=== PATIENT | male | born 1940 | race Caucasian/White ===

== ENCOUNTER 2016-09-07 21:49 | Emergency (ER) | payer MEDICARE ==
[2016-01-20 13:09] VITALS: BMI 25.8
[~2016-09-07 21:49] MED LIST: BAYER CHEWABLE81 MG PO; BRILINTA90 MG PO; COLACE100 MG PO; ISOSORBIDE MONO30 M1 PO; MIRALAX17 GM PO; NORCO 7.5/325 T1 TA1 PO
[2016-09-07 22:36] LABS: ALBUMIN 3.5 g/dL (3.4-5.0); ALKALINE PHOSPHATASE 61 U/L (46-116); ALT (SGPT) 46 U/L (10-68); BILIRUBIN - TOTAL 0.37 mg/dL (0.2-1.3); CALC OSMOLALITY 287 mosm/kg (275-300); CALCIUM 8.7 mg/dL (8.5-10.1); CARBON DIOXIDE 27.6 mmol/L (21.0-32.0); CHLORIDE - SERUM 106 mmol/L (98-107); GLUCOSE 107 mg/dL (74-106); POTASSIUM - SERUM 3.7 mmol/L (3.5-5.1); PROTEIN - SERUM 6.9 g/dL (6.4-8.2); SODIUM 144 mmol/L (136-145); UREA NITROGEN 15 mg/dL (7-18); eGFR NON AFRICAN AMERICAN 77 mL/min (90-120)
[2016-09-07 22:37] LABS: CREATINE KINASE 77 UL (21-232); TROPONIN-I 0.031 ng/mL (0.000-0.060)
[2016-09-07 22:49] LABS: BASOPHILS 0.8 % (0-2); EOSINOPHILS 3.3 % (0-7); HEMATOCRIT 44.4 % (42.0-54.0); HEMOGLOBIN 15.1 g/dL (13.5-17.5); IMMATURE GRANULOCYTES 0.1 % (0-5); LYMPHOCYTES 51.2 % (15-50); MCH 31.3 pg (26.0-34.0); MCV 91.9 fL (80.0-100.0); MEAN PLATELET VOLUME 10.5 fL (7.4-10.4); MONOCYTES 7.2 % (2-11); NEUTROPHILS 37.4 % (40-80); PLATELET COUNT 212 10x3/uL (130-400); RBC 4.83 10x6/uL (4.20-6.10); RDW 14.6 % (11.5-14.5); WBC 7.6 10x3/uL (4.8-10.8)
== END 2016-09-08 00:40 | disposition home or self-care (01) ==
LOC: D.ER 21:49
PROVIDERS: Family Medicine
DX: I49.3 Ventricular premature depolarization (principal); R53.83 Other fatigue; R00.1 Bradycardia, unspecified

== ENCOUNTER → 2017-05-03 02:46 | Outpatient (CLI) | payer MEDICARE ==
[2016-01-20 13:09] VITALS: BMI 25.8
--- NOTE | ~2017-05-03 | HP ---
PATIENT: JERONIMO CLARKE MEDICAL RECORD: [id number] ACCOUNT: [id number] LOCATION:[facility] : 40 ADMISSION DATE: 05/03/17 HISTORY AND PHYSICAL EXAMINATION DIAGNOSES: 1. Non-Q-wave myocardial infarction. 2. Coronary artery disease. 3. Previous PTCA and stent. 4. Previous bypass surgery. HISTORY OF PRESENT ILLNESS: This is a gentleman with a past history of coronary bypass graft surgery in 1998, PTCA and stent in January of 2016, who presents with acute onset of chest pain, troponin is elevated, he continues to have chest pain. PHYSICAL EXAMINATION: GENERAL APPEARANCE: Well-nourished, well-developed, appears stated age. Level of distress, comfortable. PSYCHIATRIC: Mental status, alert, normal affect. Orientation, oriented to time, place and person. EYES: Lids and conjunctiva, noninjected. No discharge, no pallor. ENT: Lips, teeth, gums, normal dentition. Oropharynx, no cyanosis, no pallor. NECK: Carotid arteries, bilateral normal upstroke, no bruits, no thrills. JUGULAR VEINS: No jugular venous pressure or distention. CERVICAL LYMPH NODES: Nontender, nonenlarged. THYROID: Not enlarged. Nontender. No nodules. LUNGS: Respiratory effort, unlabored. CHEST: Normal curvature. No thoracic deformity. No chest wall tenderness. Percussion, resonant. Auscultation, clear. No wheezes, no rales, no rhonchi. CARDIOVASCULAR: Precordial exam, nondisplaced. No heaves or pericardial thrills. Rate and rhythm, regular. Heart sounds, normal S1, normal S2. No S3, no gallop, no rub. Systolic murmur, not heard. Diastolic murmur, not heard. EXTREMITIES: No cyanosis, no edema. Peripheral pulses, full and equal in all extremities, except as noted. No bruits appreciated. ABDOMEN: Soft, nondistended. Normal aorta. No bruit. Nontender. No masses. Liver, nontender, no hepatomegaly. Spleen, nontender, no splenomegaly. MUSCULOSKELETAL: No joint tenderness. No joint swelling. No erythema. NEUROLOGICAL: Normal gait, normal strength, normal tone. SKIN: Warm and dry. REVIEW OF SYSTEMS: The patient reports easy bruising but reports no swollen glands. The patient reports no fever, no night sweats, no significant weight gain, no significant weight loss. No significant exercise tolerance. The patient reports no dry eyes, no irritation, no vision change. Patient reports no difficulty hearing and no ear pain. Patient reports no frequent nose bleeds or nose and sinus problems. Patient reports on arm pain on exertion. No shortness of breath while lying down. No history of heart murmur. Patient reports no cough, no wheezing or coughing up blood. Patient reports no abdominal pain, no vomiting. Normal appetite. No diarrhea and not vomiting blood. No nausea and no constipation. Patient reports no incontinence. No difficulty urinating. No hematuria. No increased frequency. Patient reports no muscle aches. No weakness, no arthralgias, no back pain. No swelling of the extremities. Patient reports no abnormal mole, no jaundice, no rashes. Reports no loss of consciousness. No weakness and no numbness. No seizures, dizziness, HISTORY AND PHYSICAL [id number] KRAWCZYNSKI,JERONIMO E or headaches. The patient reports no depression, no sleep disturbance, feeling safe in a relationship and no alcohol abuse. Patient reports on fatigue. Reports no runny nose or sinus pressure. No itching, no hives, and no frequent sneezing. OVERALL IMPRESSION: Chest pain with elevated troponin compatible with non-Q-wave myocardial infarction. His heart rate is in the 50s, hence we will not start a beta-joselyn. He is already on Brilinta and aspirin, we will continue these. Proceed with coronary angiography. Further care depends on the findings of the angiography. TRANSINT:[id number] Voice Confirmation ID: [id number] DOCUMENT ID: [id number] JESSY HARDWICK MD at 1056 CC: [id number] DICTATION DATE: 05/03/17 0754 SOLUTION MAKER: 05/03/17 0912 DEP CLI 05/03/17 [place] [id number] [place] [id number]
--- NOTE | ~2017-05-03 | HEMODYNAMI ---
PATIENT:JERONIMO CLARKE MEDICAL RECORD: [id number] : 40 LOCATION:JOAO Neumann7[facility]# [id number] ADMISSION DATE: 05/03/17 Generatedon:05/03/20179:37 Patient name: JERONIMO CLARKE Patient #: [id number] SSN : : 1940 Date of study: 05/03/2017 Page: Of Hemodynamic Procedure Report Patient Data Patient Demographics Procedure consent was obtained First Name: JERONIMO Gender: Male Last Name: TRICIA : 1940 [facility] Initial: E Age: 76 year(s) Patient #: [id number] Race: Additional ID: [id number] Contact details Address: [address] [place] [address] State: [place] City: [facility] Zip code: [address] Past Medical History Allergies Allergen Reaction Date Comments Reported Penicillins 12/17/2015 Statins 12/17/2015 Other allergy 01/20/2016 CIPROFLOXACIN, COREG, FOSAMAX, LISINOPRIL, MEXITIL, PLAVIX, QUINIDINE, RYTHMOL Admission Admission Data Admission Date: 05/03/2017 Admission Time: 6:24 Room #: D.E07 Lab Results Lab Result Date: 05/03/2017 Lab Result Time: 0:00 Biochemistry Name Units Result Min Max BUN mg/dl 13 --(--*-)-- 7 18 Creatinine mg/dl 1.1 --(--*-)-- 0.6 1.3 Troponin l ng/ml 0.8 --(----)-* 0 0.06 CBC Name Units Result Min Max Hemoglobin g/dl 14.5 --(*---)-- 13.5 17.5 Procedure Procedure Types Cath Procedure Diagnostic Procedure [facility] w/Coronaries PCI Procedure AMI/SVG/PRESSROOM SUPERVISOR PTCA or Stent SVG-BMS/MAXINE Initial Procedure Description Procedure Date Procedure Date: 05/03/2017 Procedure Start Time: 9:15 Procedure End Time: 9:36 Procedure Staff Name Function Mark Maradiaga RN Nurse Philippe Olson RT Monitor Gilda Stinson RT Scrub Ric Bryant MD Performing Physician Procedure Data Cath Procedure Fluoroscopy Diagnostic fluoroscopy Total fluoroscopy Time: 4.4 time: 4.4 min min Diagnostic fluoroscopy Total fluoroscopy dose: dose: 254.02 mGy 254.02 mGy Contrast Material Contrast Material Type Amount (ml) Isovue 300 107 Entry Location Entry Primary Successful Side Size Upsize Upsize Entry Closure Succes sful Closure Location (Fr) 1 (Fr) 2 (Fr) Remarks Device Remarks Femoral Right 5 Fr 6 Fr Exoseal artery Short Estimated blood loss: 10 ml Diagnostic catheters Device Type Used For End Catheter Placement MULTIPACK Pigtail 5 Fr Procedure catheter MULTIPACK JL 4.0 5Fr Procedure catheter DIAGNOSTIC AR 1 MOD 5Fr Procedure catheter ([id number]) Procedure Medications Medication Administration Route Dosage Oxygen NC 2 l/min Lidocaine 2% added to field 20 Heparin Flush Bag added to field 2 bags (1000units/500ml NS) 0.9% NaCl I.V. 100 ml/hr Versed I.V. 1 mg Fentanyl I.V. 50 mcg Versed I.V. 1 mg Fentanyl I.V. 50 mcg Fentanyl I.V. 50 mcg Heparin Bolus I.V. 5000 units Cardene I.C. 300 mcg Hemodynamics Rest HGB: 14.5 (g/dl) Heart Rate: 69 (bpm) Pressure Samples Time Site Value (mmHg) Purpose Heart Use Rate(bpm) 9:15 LV 144/-7,18 Snapshot 70 Snapshots Pre Cath Intra NCS Post Cath Vital Signs Time Heart Resp SPO2 etCO2 NIBP (mmHg) Rhythm Pain Sedation Rate (ipm) (%) (mmHg) Status Level (bpm) 8:57:10 70 17 97 27 168/102(156) NSR 0 (11) 10(A) , No pain 9:01:32 71 19 98 27.7 165/90(142) NSR 0 (11) 10(A) , No pain 9:05:46 67 13 98 27.7 149/88(134) NSR 0 (11) 10(A) , No pain 9:10:02 65 16 98 0 144/85(117) NSR 0 (11) 9(A) , No pain 9:14:18 65 15 95 0 142/84(121) NSR 0 (11) 9(A) , No pain 9:18:34 66 19 97 0 144/79(119) NSR 0 (11) 9(A) , No pain 9:22:48 71 17 96 33 142/82(118) NSR 0 (11) 9(A) , No pain 9:27:02 75 16 96 0.7 128/74(106) NSR 0 (11) 10(A) , No pain 9:31:14 77 9 97 38.9 147/84(116) NSR 0 (11) 10(A) , No pain 9:35:42 97 33.7 No Cuff NSR 0 (11) 10(A) , No pain Medications Time Medication Route Dose Verified Delivered Reason Notes Effectiveness by by 9:00:09 Oxygen NC 2 Ric Flores used for l/min Manny Maradiaga RN procedure 9:00:18 Lidocaine 2% added 20ml Ric Larios for local to vial Manny Bryant MD anesthetic field 9:01:03 Heparin Flush added 2 Ric Larios used for Bag to bags Manny Bryant MD procedure (1000units/500ml field NS) 9:01:12 0.9% NaCl I.V. 100 Ric Flores Per physician ml/hr Manny Maradiaga RN 9:08:20 Versed I.V. 1 mg Ric Flores for sedation Manny Maradiaga RN 9:08:26 Fentanyl I.V. 50 Ric Flores for sedation mcg Manny Maradiaga RN 9:12:53 Versed I.V. 1 mg Ric Flores for sedation Manny Maradiaga RN 9:12:58 Fentanyl I.V. 50 Ric [place] for sedation mcg Manny Maradiaga RN 9:17:08 Fentanyl I.V. 50 Ric Flores for sedation mcg Manny Maradiaga RN 9:21:16 Heparin Bolus I.V. 5000 Ric Flores for verifie d units Manny Maradiaga RN anticoagulation with dr bryant 9:24:45 Cardene I.C. 300 Ric Larios for mcg Manny Bryant MD vasodilation Procedure Log Time Note 8:36:06 Time tracking: Regular hours 8:36:07 Mark Maradiaga RN sent for patient. Start room use. 8:36:11 Plan of Care:Hemodynamics will remain stable., Cardiac rhythm will remain stable., Comfort level will be maintained., Respiratory function will remain adequate., Patient/ family verbilizes understanding of procedure., Procedure tolerated without complication., Recovers from procedure without complications.. 8:36:13 Signed procedure consent form obtained from patient. 8:40:38 Lab Result : BUN 13 mg/dl 8:40:38 Lab Result : Creatinine 1.1 mg/dl 8:40:38 Lab Result : Troponin l 0.8 ng/ml 8:40:38 Lab Result : Hemoglobin 14.5 g/dl 8:40:53 H&P Date Dictated: 05/03/2017 ER History on chart.. 8:41:02 Signed procedure consent form obtained from patient. 8:49:07 Patient received from ED to CCL 3 Alert and oriented. Tansferred to table in Supine position. 8:49:08 Warm blankets applied, and elfego hugger turned on for patient comfort. 8:49:09 Correct patient and procedure confirmed by team. 8:49:10 ECG and BP/O2 sat monitors applied to patient. 8:55:59 Vital chart was started 8:56:00 Baseline sample Acquired. 8:56:38 Baseline sample Acquired. 8:56:44 Rhythm: sinus rhythm 8:56:46 Full Disclosure recording started 8:56:50 Pre-procedure instructions explained to patient. 8:56:51 Pre-op teaching completed and patient verbalized understanding. 8:56:59 Family in waiting room. 8:57:12 Patient NPO since Breakfast. 8:57:37 SEE CHART FOR LIST OF ALLERGIES 8:57:42 Is the patient allergic to Iodine/contrast media? No. 8:57:47 Is patient on blood thinner?Yes 8:58:03 ACC The patient was administered the following blood thiners within the last 24 hours: ACCEffient 8:58:06 Patient diabetic? No. 8:58:10 ----Pre-sedation anethsthesia assessment.---- 8:58:13 Previous problem with sedation/anesthesia? No ? 8:58:19 Snore? No 8:58:22 Sleep apnea? No 8:58:24 Deviated septum? No 8:58:30 Opens mouth fully? Yes 8:58:32 Sticks out tongue? Yes 8:58:42 Airway obstruction? No ? 8:58:47 Dentures? No ? 8:59:02 Pre procedure: right posterior tibial pulse 2+ Normal; easily identifiable; not easily obliterated 8:59:19 Patient pain scale 0/10 ?. 8:59:41 IV patent on arrival in left hand with 0.9% NaCl at KVO. 9:00:07 PATIENTS HEPARIN DRIP WAS STOPPED AT 0845 9:00:09 Oxygen 2 l/min NC was administered by Mark Maradiaga RN; used for procedure; 9:00:13 Lab results completed and on chart. 9:00:18 Lidocaine 2% 20ml vial added to field was administered by Ric Bryant MD; for local anesthetic; 9:00:22 Right groin area was prepped with chlora-prep and draped in sterile fashion 9:01:03 Heparin Flush Bag (1000units/500ml NS) 2 bags added to field was administered by Ric Bryant MD; used for procedure; 9:01:12 0.9% NaCl 100 ml/hr I.V. was administered by Mark Maradiaga RN; Per physician; 9:01:18 PATIENT HAS HAD CABG 1994 X 5 9:01:21 Alarms reviewed by R. N. 9:01:22 Sharps counted by scrub and verified by R.N. 9:05:02 Zero performed for pressure channel P1 9:07:04 Physician arrived 9:07:04 --------ALL STOP TIME OUT------ 9:07:05 Final Timeout: patient, procedure, and site verified with staff and physician. All members of the team are in agreement. 9:07:07 Right groin site verified by team. 9:07:10 Physical assessment completed. ASA score P 2 - A patient with mild systemic disease as per Philippe Olson RT(R) (CV). 9:07:28 Sedation plan: IV Moderate Sedation Medication:Versed, Fentanyl 9:08:20 Versed 1 mg I.V. was administered by Mark Maradiaga RN; for sedation; 9:08:26 Fentanyl 50 mcg I.V. was administered by Mark Maradiaga RN; for sedation; 9:09:39 Use device set Femoral Dx 9:09:40 ACIST Syringe (53683) opened to sterile field. 9:09:43 Bag Decanter (2001S) opened to sterile field. 9:09:45 Medline Cath Pack ([id number]) opened to sterile field. 9:09:46 SHEATH 5FR [place] (LLB356) opened to sterile field. 9:09:47 DIAGNOSTIC WIRE .035 260cm J wire (485832) opened to sterile field. 9:09:48 ACIST Hand Control (87279) opened to sterile field. 9:09:49 ACIST Manifold (27980) opened to sterile field. 9:09:52 DIAGNOSTIC Multipack 5Fr catheter set (GR7684) opened to sterile field. 9:12:53 Versed 1 mg I.V. was administered by Mark Maradiaga RN; for sedation; 9:12:58 Fentanyl 50 mcg I.V. was administered by Mark Maradiaga RN; for sedation; 9:14:53 Procedure started. 9:15:03 Local anesthetic to right femoral artery with Lidocaine 2% by Ric Bryant MD.INITIAL ACCESS ONLY 9:15:31 A 5 Fr sheath was inserted into the Right Femoral artery 9:15:49 A MULTIPACK Pigtail 5 Fr catheter was advanced over the wire and used for Procedure. 9:15:57 LV hemodynamics recorded. 9:16:02 EF : 50 % 9:16:05 LV gram done using BLANKENSHIP 9:16:14 Catheter removed. 9:16:38 A MULTIPACK JL 4.0 5Fr catheter was advanced over the wire and used for Procedure. 9:17:04 LCA angiography performed. 9:17:07 Catheter removed. 9:17:08 Fentanyl 50 mcg I.V. was administered by Mark Maradiaga RN; for sedation; 9:17:22 A DIAGNOSTIC AR 1 MOD 5Fr catheter ([id number]) was advanced over the wire and used for Procedure. 9:18:24 SVG to RCA angiography performed. 9:18:56 VAZQUEZ to OM angiography performed. 9:20:03 VAZQUEZ to LAD angiography performed. 9:20:14 Catheter removed. 9:20:15 Proceeding to intervention. 9:21:05 SHEATH 6FR [place] (FHU098) opened to sterile field. 9:21:06 GUIDE 6FR AR 2.0 catheter ([id number]) opened to sterile field. 9:21:16 Heparin Bolus 5000 units I.V. was administered by Mark Maradiaga RN; for anticoagulation; verified with dr bryant 9:21:19 CHOICE PT Extra Support 182cm wire ([id number]) opened to sterile field. 9:21:21 INFLATOR Merit BasixCompak (AF0971) opened to sterile field. 9:22:03 Sheath upsized to a 6 Fr Short. 9:22:17 6 Fr AR 2 guide catheter was inserted over the wire 9:24:45 Cardene 300 mcg I.C. was administered by Ric Bryant MD; for vasodilation; 9:25:09 CHOICE wire advanced. 9:25:14 Wire advanced across lesion. 9:26:29 Procedure type changed to Cath procedure, Diagnostic procedure, LHC, LHC w/Coronaries, PCI procedure, AMI/SVG/PRESSROOM SUPERVISOR PTCA or Stent, SVG-BMS/MAXINE Initial 9:27:39 Inflation number: 1 A NC EUPHORA 3.0 x 15 balloon ([id number]) was prepped and advanced across the Aorta Right -> Dist RCA, then inflated to 13 KALE for 0:10 (min:sec). 9:27:55 Balloon removed over the wire. 9:28:27 Inflation Number: 2 A MESSI RX 3.5 x 26 stent ([id number]) was prepped and advanced across the Aorta Right -> Dist RCA. The stent was deployed at 13 KALE for 0:10 (min:sec). 9:30:59 Stent catheter was removed intact over wire. 9:31:00 Wire removed. 9:31:00 Guide catheter removed. 9:31:42 EXOSEAL 6Fr (EX600) opened to sterile field. 9:32:31 Procedure ended.(Physican Out) 9:33:14 Fluoroscopy time 04.40 minutes. 9:33:25 Flurop Dose total: 254.02 9:33:25 Fluoroscopy dose: 254.02 mGy 9:33:35 Contrast amount:Isovue 300 107ml. 9:33:58 Sharps counted by scrub and verified by R.N. 9:34:36 Sheath removed intact; hemostasis achieved with Exoseal to the Right Femoral artery. 9:34:47 Insertion/operative site no bleeding no hematoma. 9:34:50 Post-op/insertion site Right Femoral artery dressed using a 4 x 4 and Tegaderm. 9:34:55 Post right femoral artery:stable 9:35:14 Post Procedure Pulses reassessed and unchanged 9:35:23 Post procedure: right posterior tibial pulse 2+ Normal; easily identifiable; not easily obliterated. 9:35:36 Post-procedure physical assessment completed. ASA score P 2 - A patient with mild systemic disease as per Philippe Olson RT(R) (CV). 9:35:44 Post procedure rhythm: sinus rhythm 9:35:47 Estimated blood loss: 10 ml 9:35:50 Post procedure instruction explained to patient.Patient verbalizes understanding. 9:35:52 Patient needs reinforcement of post procedure teaching. 9:36:32 Procedure and supply charges have been captured, reviewed, submitted and are correct. 9:36:34 Vital chart was stopped 9:36:34 See physician's report for complete and final results. 9:36:40 Report given to Pre/Post Procedure Room. 9:36:48 Patient transfered to Pre/Post Procedure Room with Stretcher. 9:36:53 Procedure ended. 9:36:53 Full Disclosure recording stopped 9:36:58 End room use (Document Last) Intervention Summary Intervention Notes Time ActionType Lesion and Equipment Used Action# Pressure Duration Attributes 9:27:39 Inflate Aorta Right NC EUPHORA 3.0 1 13 00:10 balloon -> Dist RCA x 15 balloon ([id number]) 9:28:27 Place stent Aorta Right MESSI RX 3.5 x 2 13 00:10 -> Dist RCA 26 stent ([id number]) Device Usage Item Name Manufacture Quantity Catalog Number Hospital Part Current M inimal Lot# / Charge Number Stock Stock Serial# Code ACIST Syringe Acist 1 63491 235927 508531 577833 2 0 (02650) Medical Systems Inc Bag Decanter Microtek 1 2001S 137390 79224 626566 5 () Medical Inc. Medline Cath Cardinal 1 [id number] 538895 81627 827539 5 [employer] ([id number]) SHEATH 5FR Terumo 1 EXT660 857902 501164 931342 4 0 [place] (DMG275) DIAGNOSTIC St Fabrice 1 612481 953994 464118 275176 3 0 WIRE .035 260cm J wire (081021) ACIST Hand Acist 1 47593 385631 313690 982754 5 Control Medical (75193) Systems Inc ACIST Manifold Acist 1 07940 592402 654316 648071 5 (91486) Medical Systems Inc DIAGNOSTIC Cardinal 1 QT2379 089223 36191 386869 3 0 Multipack 5Fr Health catheter set (ZF1772) MULTIPACK Cardinal 1 985657 5 Pigtail 5 Fr Health catheter MULTIPACK JL Cardinal 1 413643 5 4.0 5Fr Health catheter DIAGNOSTIC AR Cardinal 1 [id number] 090036 917755 523897 1 5 1 MOD 5Fr Health catheter ([id number]) SHEATH 6FR Terumo 1 ZQC213 386529 132460 957481 4 0 [place] (FFN591) GUIDE 6FR AR Medtronic 1 KU5QX84 499964 54427 254069 1 2.0 catheter (YN8IA44) CHOICE PT Buckhorn 1 [id number] 006622 770468 861288 5 Extra Support Scientific 182cm wire ([id number]) INFLATOR Merit Merit 1 XG2242 036276 553882 196642 1 5 [employer]oo Medical (NG5759) NC EUPHORA 3.0 Medtronic 1 [id number] 131641 871292 043774 1 x 15 balloon ([id number]) MESSI RX 3.5 x Medtronic 1 [id number] 156389 1332750 545225 5 [id number] 26 stent ([id number]) EXOSEAL 6Fr Cardinal 1 EX600 397561 964901 061836 1 0 (EX600) Health Signature Audit [place] Stage Time Signature Unsigned Intra-Procedure 05/03/2017 Philippe Olson 9:37:48 AM RT(R) (CV) Signatures Monitor : Philippe Olson RT Signature : Date : Time : [facility] [address] [address]
--- NOTE | ~2017-05-03 | OP ---
PATIENT NAME: JERONIMO CLARKE MEDICAL RECORD: [id number] :40 LOCATION:D.OPS ADMISSION DATE: SURGEON: JESSY HARDWICK MD DATE OF OPERATION: 05/03/2017 PROCEDURES: 1. PTCA stent vein graft to RCA. 2. Left heart catheterization. 3. Selective coronary angiography. 4. Vein graft angiography. 5. VAZQUEZ angiography. 6. Left ventriculogram. INDICATION: Angina and coronary artery disease. PROCEDURE IN DETAIL: After informed consent was obtained and after detailed explanation of risks, benefits as well as alternative therapies, the patient elected to proceed with angiogram and angioplasty. The right femoral area was prepped and draped in normal sterile fashion. The right femoral artery was cannulated via modified Seldinger technique with placement of 6-[place] sheath. All catheters exchanged through this sheath. FINDINGS: Left ventriculogram was performed in standard 30-degree BLANKENSHIP view, reveals preserved cardiac wall motion, ejection fraction 50%. SELECTIVE CORONARY ANGIOGRAPHY: 1. Left main is with no significant angiographic disease. 2. Left anterior descending is closed. 3. Left circumflex is closed. 4. VAZQUEZ to the LAD is patent. Distal LAD is widely patent. 5. Right coronary artery is closed in the mid vessel. 6. Vein graft to the right coronary artery is patent with a 99% stenosis proximally. 7. Vein graft to the circumflex is patent with 80+ percent stenosis proximally. PTCA STENT OF THE RCA VEIN GRAFT: The stent used is a 3.5 x 26 mm Coolin. Result was 0% residual stenosis. OVERALL IMPRESSION: Successful percutaneous transluminal coronary angioplasty stent of the vein graft to the right coronary artery going from 99% initial stenosis to 0% residual stenosis. PLAN: PTCA stent of the vein graft to the left circumflex in the near future. TRANSINT:[id number] Voice Confirmation ID: [id number] DOCUMENT ID: [id number] JESSY HARDWICK MD at 1056 CC: [id number] DICTATION DATE: 05/03/17 0940 AUTOMATIC TELLER MACHINE SERVICER: 05/03/17 1136 DEP CLI 05/03/17 [place] [address]
[~2017-05-03 02:46] MED LIST changes: +EFFIENT10 MG PO
[2017-05-03 03:41] LABS: BASOPHILS 0.6 % (0-2); EOSINOPHILS 5.8 % (0-7); HEMATOCRIT 42.2 % (42.0-54.0); HEMOGLOBIN 14.5 g/dL (13.5-17.5); IMMATURE GRANULOCYTES 0.2 % (0-5); LYMPHOCYTES 43.1 % (15-50); MCH 31.2 pg (26.0-34.0); MCHC 34.4 g/dL (31.0-37.0); MCV 90.8 fL (80.0-100.0); MEAN PLATELET VOLUME 10.2 fL (7.4-10.4); MONOCYTES 10.5 % (2-11); NEUTROPHILS 39.8 % (40-80); PLATELET COUNT 170 10x3/uL (130-400); RBC 4.65 10x6/uL (4.20-6.10); RDW 14.1 % (11.5-14.5)
[2017-05-03 03:53] LABS: ALBUMIN 3.4 g/dL (3.4-5.0); ALKALINE PHOSPHATASE 55 U/L (46-116); ALT (SGPT) 51 U/L (10-68); CALC OSMOLALITY 281 mosm/kg (275-300); CALCIUM 8.7 mg/dL (8.5-10.1); CARBON DIOXIDE 25.7 mmol/L (21.0-32.0); CHLORIDE - SERUM 106 mmol/L (98-107); CREATININE - SERUM 1.1 mg/dL (0.6-1.3); GLUCOSE 108 mg/dL (74-106); POTASSIUM - SERUM 3.7 mmol/L (3.5-5.1); PROTEIN - SERUM 6.9 g/dL (6.4-8.2); SODIUM 141 mmol/L (136-145); UREA NITROGEN 13 mg/dL (7-18); eGFR NON AFRICAN AMERICAN 69 mL/min (90-120)
[2017-05-03 04:03] LABS: APTT 26.8 SECONDS (22.8-39.4); INR 1.09 (0.85-1.17); PROTIME 13.7 SECONDS (11.6-15.0)
[2017-05-03 04:22] LABS: D-DIMER-QUANTITATIVE 0.79 ug/mLFEU (0.20-0.54)
[2017-05-03 04:31] LABS: CHOL - HDL RATIO 5.2 ratio (2.3-4.9); CHOLESTEROL, TOTAL 177 mg/dL (0-200); CREATINE KINASE 121 UL (21-232); HDL CHOLESTEROL 34 mg/dL (32-96); LDL CHOLESTEROL 119 mg/dL (0-100); LDL-HDL RATIO 3.5 ratio (1.5-3.5); PRO BNP 514 pg/mL (0-450); TRIGLYCERIDE 124 mg/dL (30-200)
[2017-05-03 04:34] LABS: TROPONIN-I 0.784 ng/mL (0.000-0.060)
[2017-05-03 06:15] LABS: TROPONIN-I 0.87 ng/mL (0.000-0.060)
== END | disposition home or self-care (01) ==
LOC: D.ER 02:46 → D.OPS 02:46 → D.EDHOLD 06:24 → D.OPS 06:24 → D.ER 06:24 → EDSTATUS 12:00 → D.EDHOLD 14:00
PROVIDERS: Family Medicine; Internal Medicine Interventional Cardiology
PROC: B2121ZZ Fluoroscopy of Single Coronary Artery Bypass Graft using Low Osmolar Contrast (ICD-10-PCS; 2017-05-03)
PROC: B2181ZZ Fluoroscopy of Left Internal Mammary Bypass Graft using Low Osmolar Contrast (ICD-10-PCS; 2017-05-03)
PROC: B2151ZZ Fluoroscopy of Left Heart using Low Osmolar Contrast (ICD-10-PCS; 2017-05-03)
PROC: 027034Z Dilation of Coronary Artery, One Artery with Drug-eluting Intraluminal Device, Percutaneous Approach (ICD-10-PCS; principal; 2017-05-03 12:00)
PROC: 4A023N7 Measurement of Cardiac Sampling and Pressure, Left Heart, Percutaneous Approach (ICD-10-PCS; 2017-05-03 12:00)
DX: I21.4 Non-ST elevation (NSTEMI) myocardial infarction (principal); I25.119 Atherosclerotic heart disease of native coronary artery with unspecified angina pectoris; Z95.5 Presence of coronary angioplasty implant and graft; Z95.1 Presence of aortocoronary bypass graft
CPT/HCPCS: 93459; C9604

== ENCOUNTER → 2017-05-12 08:37 | Outpatient (CLI) | payer MEDICARE ==
[~2017-05-12] VITALS: Ht 177.8 cm; Wt 81.8 kg
--- NOTE | ~2017-05-12 | HP ---
PATIENT: JERONIMO CLARKE MEDICAL RECORD: [id number] ACCOUNT: [id number] LOCATION:CHAS : 40 ADMISSION DATE: 05/12/17 HISTORY AND PHYSICAL EXAMINATION ADMITTING DIAGNOSES: 1. Angina. 2. Coronary artery disease. 3. Recent percutaneous transluminal coronary angioplasty stent vein graft to RCA with concomitant disease of the vein graft to the circumflex. 4. Hypertension. 5. Hyperlipidemia. HISTORY OF PRESENT ILLNESS: This is a gentleman who presents with anginal symptomatology, found to have 2-vessel disease of the vein graft to the RCA as well as a vein graft to the circumflex. He underwent successful PTCA stent of the vein graft to the RCA, now brought back for the vein graft to the left circumflex. REVIEW OF SYSTEMS: The patient reports easy bruising but reports no swollen glands. The patient reports no fever, no night sweats, no significant weight gain, no significant weight loss. No significant exercise tolerance. The patient reports no dry eyes, no irritation, no vision change. Patient reports no difficulty hearing and no ear pain. Patient reports no frequent nose bleeds or nose and sinus problems. Patient reports on arm pain on exertion. No shortness of breath while lying down. No history of heart murmur. Patient reports no cough, no wheezing or coughing up blood. Patient reports no abdominal pain, no vomiting. Normal appetite. No diarrhea and not vomiting blood. No nausea and no constipation. Patient reports no incontinence. No difficulty urinating. No hematuria. No increased frequency. Patient reports no muscle aches. No weakness, no arthralgias, no back pain. No swelling of the extremities. Patient reports no abnormal mole, no jaundice, no rashes. Reports no loss of consciousness. No weakness and no numbness. No seizures, dizziness, or headaches. The patient reports no depression, no sleep disturbance, feeling safe in a relationship and no alcohol abuse. Patient reports on fatigue. Reports no runny nose or sinus pressure. No itching, no hives, and no frequent sneezing. PHYSICAL EXAMINATION: GENERAL APPEARANCE: Well-nourished, well-developed, appears stated age. Level of distress, comfortable. PSYCHIATRIC: Mental status, alert, normal affect. Orientation, oriented to time, place and person. EYES: Lids and conjunctiva, noninjected. No discharge, no pallor. ENT: Lips, teeth, gums, normal dentition. Oropharynx, no cyanosis, no pallor. NECK: Carotid arteries, bilateral normal upstroke, no bruits, no thrills. JUGULAR VEINS: No jugular venous pressure or distention. CERVICAL LYMPH NODES: Nontender, nonenlarged. THYROID: Not enlarged. Nontender. No nodules. LUNGS: Respiratory effort, unlabored. CHEST: Normal curvature. No thoracic deformity. No chest wall tenderness. Percussion, resonant. Auscultation, clear. No wheezes, no rales, no rhonchi. CARDIOVASCULAR: Precordial exam, nondisplaced. No heaves or pericardial thrills. Rate and rhythm, regular. Heart sounds, normal S1, normal S2. No S3, no gallop, no rub. Systolic murmur, not heard. Diastolic murmur, not heard. HISTORY AND PHYSICAL [id number] JERONIMO CLARKE EXTREMITIES: No cyanosis, no edema. Peripheral pulses, full and equal in all extremities, except as noted. No bruits appreciated. ABDOMEN: Soft, nondistended. Normal aorta. No bruit. Nontender. No masses. Liver, nontender, no hepatomegaly. Spleen, nontender, no splenomegaly. MUSCULOSKELETAL: No joint tenderness. No joint swelling. No erythema. NEUROLOGICAL: Normal gait, normal strength, normal tone. SKIN: Warm and dry. OVERALL IMPRESSION: Anginal symptomatology with significant disease in the vein graft to circumflex. We will proceed with percutaneous transluminal coronary angioplasty stent of the vein graft to circumflex. TRANSINT:[id number] Voice Confirmation ID: [id number] DOCUMENT ID: [id number] JESSY HARDWICK MD at 1056 CC: [id number] DICTATION DATE: 05/12/17 0938 ORDERING MACHINE OPERATOR: 05/12/17 0959 [facility] CLI 05/12/17 [place] [id number] [place] [id number]
--- NOTE | ~2017-05-12 | HEMODYNAMI ---
PATIENT:JERONIMO CLARKE MEDICAL RECORD: [id number] : 40 LOCATION:DIsaelCAT ADMISSION DATE: 05/12/17 Generatedon:05/12/201711:24 Patient name: JERONIMO CLARKE Patient #: [id number] SSN : : 1940 Date of study: 05/12/2017 Page: Of Hemodynamic Procedure Report Patient Data Patient Demographics Procedure consent was obtained First Name: JERONIMO Gender: Male Last Name: TRICIA : 1940 Middle Initial: E Age: 76 year(s) Patient #: [id number] Race: Additional ID: [id number] Contact details Address: [address] [place] [address] State: [place] City: [facility] Zip code: [address] Past Medical History Allergies Allergen Reaction Date Comments Reported Penicillins 12/17/2015 Statins 12/17/2015 Other allergy 01/20/2016 CIPROFLOXACIN, COREG, FOSAMAX, LISINOPRIL, MEXITIL, PLAVIX, QUINIDINE, RYTHMOL Admission Admission Data Admission Date: 05/12/2017 Admission Time: 8:37 Lab Results Lab Result Date: 05/12/2017 Lab Result Time: 0:00 Biochemistry Name Units Result Min Max BUN mg/dl 16 --(---*)-- 7 18 Creatinine mg/dl 1.1 --(--*-)-- 0.6 1.3 CBC Name Units Result Min Max Hemoglobin g/dl 15.8 --(--*-)-- 13.5 17.5 Procedure Procedure Types Cath Procedure PCI Procedure Coronary Stent Coronary Stent Initial Procedure Description Procedure Date Procedure Date: 05/12/2017 Procedure Start Time: 11:13 Procedure End Time: 11:24 Procedure Staff Name Function Stanley Ford RT Monitor Ric Bryant MD Performing Physician Gilda Stinson RT Scrub Preston Rivera RN Nurse Procedure Data Cath Procedure Fluoroscopy Diagnostic fluoroscopy Total fluoroscopy Time: 1.2 time: 1.2 min min Diagnostic fluoroscopy Total fluoroscopy dose: 70 dose: 70 mGy mGy Contrast Material Contrast Material Type Amount (ml) Isovue 300 32 Entry Location Entry Primary Successful Side Size Upsize Upsize Entry Closure Succes sful Closure Location (Fr) 1 (Fr) 2 (Fr) Remarks Device Remarks Femoral Right 6 Fr Exoseal artery Short Estimated blood loss: 10 ml Procedure Complications No complications Procedure Medications Medication Administration Route Dosage Oxygen etCO2 Nasal cannula 2 l/min Heparin Flush Bag added to field 2 bags (1000units/500ml NS) 0.9% NaCl I.V. 100 ml/hr Fentanyl I.V. 50 mcg Versed I.V. 1 mg Fentanyl I.V. 50 mcg Versed I.V. 1 mg Heparin Bolus I.V. 4000 units Hemodynamics Rest HGB: 15.8 (g/dl) Heart Rate: 54 (bpm) Snapshots Pre Cath Intra NCS Post Cath Vital Signs Time Heart Resp SPO2 etCO2 NIBP (mmHg) Rhythm Pain Sedation Rate (ipm) (%) (mmHg) Status Level (bpm) 11:06:25 69 17 99 0 171/94(151) NSR 0 (11) 10(A) , No pain 11:10:52 64 16 100 32.1 164/89(138) NSR 0 (11) 10(A) , No pain 11:15:10 64 16 100 0 153/81(127) NSR 0 (11) 9(A) , No pain 11:19:26 73 16 99 0 141/81(122) NSR 0 (11) 9(A) , No pain 11:20:50 65 16 99 35.8 139/83(115) NSR 0 (11) 9(A) , No pain Medications Time Medication Route Dose Verified Delivered Reason Notes Effectiveness by by 11:09:11 Oxygen etCO2 2 Ric Johnston Per physician Nasal l/min Manny Rivera RN cannula 11:09:19 Heparin Flush added 2 iRc Johnston used for Bag to bags Manny Rivera dining car hop (1000units/500ml field NS) 11:09:30 0.9% NaCl I.V. 100 Ric Johnston Per physician ml/hr Manny Rivera RN 11:11:01 Fentanyl I.V. 50 Ric Johnston for sedation thomas Rivera RN 11:11:09 Versed I.V. 1 mg Ric Johnston for sedation Manny Rivera RN 11:13:18 Fentanyl I.V. 50 Ric Johnston for sedation mcg Manny Rivera RN 11:13:23 Versed I.V. 1 mg Ric Johnston for sedation Manny Rivera RN 11:14:01 Heparin Bolus I.V. 4000 Ric Johnston for units Manny Rivera RN anticoagulation Procedure Log Time Note 10:30:00 Gilda Stinson RT(R) sent for patient. Start room use. 10:45:48 Plan of Care:Hemodynamics will remain stable., Cardiac rhythm will remain stable., Comfort level will be maintained., Respiratory function will remain adequate., Patient/ family verbilizes understanding of procedure., Procedure tolerated without complication., Recovers from procedure without complications.. 10:45:49 Time tracking: Regular hours 10:45:51 Signed procedure consent form obtained from patient. 10:48:18 H&P Date Dictated: 05/12/2017 Within 30 days and on chart., H&P Addendum completed by physician on day of procedure. (MUST COMPLETE FOR ALL OUTPATIENTS). 10:48:46 Lab Result : BUN 16 mg/dl 10:48:46 Lab Result : Hemoglobin 15.8 g/dl 10:48:46 Lab Result : Creatinine 1.1 mg/dl 10:58:44 Patient received from Pre/Post Procedure Room to CCL 3 Alert and oriented. Tansferred to table in Supine position. 10:58:45 Warm blankets applied, and elfego hugger turned on for patient comfort. 10:58:46 Correct patient and procedure confirmed by team. 10:58:46 ECG and BP/O2 sat monitors applied to patient. 11:05:06 Vital chart was started 11:09:11 Oxygen 2 l/min etCO2 Nasal cannula was administered by Preston Rivera RN; Per physician; 11:09:19 Heparin Flush Bag (1000units/500ml NS) 2 bags added to field was administered by Preston Rivera RN; used for procedure; 11:09:20 Baseline sample Acquired. 11:09:25 Rhythm: sinus rhythm 11:09:26 Full Disclosure recording started 11::28 Pre-procedure instructions explained to patient. 11:09:28 Pre-op teaching completed and patient verbalized understanding. 11:09:30 0.9% NaCl 100 ml/hr I.V. was administered by Preston Rivera RN; Per physician; 11:09:30 Family in waiting room. 11:09:32 Patient NPO since Midnight. 11:09:34 Is the patient allergic to Iodine/contrast media? No. 11:09:42 Is patient on blood thinner?Yes 11:09:45 ACC The patient was administered the following blood thiners within the last 24 hours: ACCEffient 11:09:47 Patient diabetic? No. 11:09:49 Previous problem with sedation/anesthesia? No ? 11:09:50 Snore? Yes 11:09:51 Sleep apnea? No 11:09:52 Deviated septum? No 11:09:53 Opens mouth fully? Yes 11:09:54 Sticks out tongue? Yes 11:09:57 Airway obstruction? No ? 11:09:59 Dentures? No ? 11:10:02 Pre procedure: right dorsailis pedis pulse 1+ Palpable, but thready & weak; easily obliterated 11:10:05 Patient pain scale 0/10 ?. 11:10:18 IV patent on arrival in left forearm with 0.9% NaCl at [facility]. 11:10:20 Lab results completed and on chart. 11:10:24 Right groin area was prepped with chlora-prep and draped in sterile fashion 11:10:25 Alarms reviewed by R. N. 11:10:26 Sharps counted by scrub and verified by R.N. 11:10:27 --------ALL STOP TIME OUT------ 11:10:27 Final Timeout: patient, procedure, and site verified with staff and physician. All members of the team are in agreement. 11:10:29 Right groin site verified by team. 11:10:32 Physical assessment completed. ASA score P 2 - A patient with mild systemic disease as per Stanley Ford RT(R). 11:10:35 Sedation plan: IV Moderate Sedation Medication:Versed, Fentanyl 11:11:01 Fentanyl 50 mcg I.V. was administered by Preston Rivera RN; for sedation; 11:11:09 Versed 1 mg I.V. was administered by Preston Rivera RN; for sedation; 11:13:18 Fentanyl 50 mcg I.V. was administered by Preston Rivera RN; for sedation; 11:13:23 Procedure started. 11:13:23 Versed 1 mg I.V. was administered by Preston Rivera RN; for sedation; 11:13:26 Local anesthetic to right femoral artery with Lidocaine 2% by Ric Bryant MD.INITIAL ACCESS ONLY 11:13:38 Tegaderm 4 x 4 (1626W) opened to sterile field. 11:13:39 ACIST Manifold (98580) opened to sterile field. 11:13:39 ACIST Hand Control (57055) opened to sterile field. 11:13:41 ACIST Syringe (29227) opened to sterile field. 11:13:41 Medline Cath Pack ([id number]) opened to sterile field. 11:13:42 Bag Decanter (2002) opened to sterile field. 11:13:43 DIAGNOSTIC WIRE .035 260cm J wire (992499) opened to sterile field. 11:13:50 Use device set [facility] PCI 11:14:01 Heparin Bolus 4000 units I.V. was administered by Preston Rivera RN; for anticoagulation; 11:14:09 SHEATH Prelude 6Fr 0.035 (BFT-1J-13-035) opened to sterile field. 11:14:09 GUIDE 6FR AR 2.0 SH catheter ([id number]) opened to sterile field. 11:14:18 INFLATOR Merit BasixCompak (DE9562) opened to sterile field. 11:14:25 CHOICE PT Extra Support 182cm wire ([id number]) opened to sterile field. 11:14:39 A 6 Fr Short sheath was inserted into the Right Femoral artery 11:14:47 6 Fr AR 2 SH guide catheter was inserted over the wire 11:16:12 Choice PT XS wire advanced. 11:16:15 Wire advanced across lesion. 11:17:11 Place stent Inflation Number: 1 A MESSI RX 3.5 x 18 stent ([id number]) was prepped and advanced across the Aorta Left -> Dist CX. The stent was deployed at 21 KALE for 0:10 (min:sec). 11:17:23 EXOSEAL 6Fr (EX600) opened to sterile field. 11:17:29 Stent catheter was removed intact over wire. 11:17:30 Wire removed. 11:17:31 Guide catheter removed. 11:17:38 Sheath removed intact; hemostasis achieved with Exoseal to the Right Femoral artery. 11:17:43 Procedure ended.(Physican Out) 11:22:48 Fluoroscopy time 01.20 minutes. 11:22:52 Fluoroscopy dose: 70 mGy 11:22:52 Flurop Dose total: 70 11:22:56 Contrast amount:Isovue 300 32ml. 11:23:06 Sharps counted by scrub and verified by R.N. 11:23:08 Insertion/operative site no bleeding no hematoma. 11:23:12 Post-op/insertion site Right Femoral artery dressed using a 4 x 4 and Tegaderm. 11:23:13 Post Procedure Pulses reassessed and unchanged 11:23:17 Post-procedure physical assessment completed. ASA score P 2 - A patient with mild systemic disease as per Ric Bryant MD. 11:23:20 Post procedure rhythm: unchanged. 11:23:22 Estimated blood loss: 10 ml 11:23:25 Post procedure instruction explained to patient.Patient verbalizes understanding. 11:23:25 Patient needs reinforcement of post procedure teaching. 11:23:34 Procedure and supply charges have been captured, reviewed, submitted and are correct. 11:23:36 Procedure Complication : No complications 11:23:55 Vital chart was stopped 11:23:55 See physician's report for complete and final results. 11:23:57 Report given to Pre/Post Procedure Room. 11:23:59 Patient transfered to Pre/Post Procedure Room with Stretcher. 11:24:01 Procedure ended. 11:24:01 Full Disclosure recording stopped 11:24:04 End room use (Document Last) Intervention Summary Intervention Notes Time ActionType Lesion and Equipment Used Action# Pressure Duration Attributes 11:17:11 Place stent Aorta Left MESSI RX 3.5 x 1 21 00:10 -> Dist CX 18 stent ([id number]) Device Usage Item Name Manufacture Quantity Catalog Number Hospital Part Current Minimal Lot# / Charge Number Stock Stock Serial# Code Tegaderm 4 x 4 3M 1 1626W [id number] [id number] 5 (1626W) ACIST Manifold Acist 1 03764 170903 348165 641340 5 (78795) [employer] Inc ACIST Hand Acist 1 17181 186948 507095 112446 5 Control (32016) [employer] Inc ACIST Syringe Acist 1 43892 294593 658243 036367 20 (24865) [employer] Systems Inc Medline Cath Cardinal 1 [id number] 475141 72123 489552 5 [facility] ([id number]) Bag Decanter Microtek 1 2002S 079852 62577 455413 5 (2001S) Medical Inc. DIAGNOSTIC WIRE St Fabrice 1 745929 555664 854576 388477 30 .035 260cm J wire (507065) SHEATH Prelude Merit 1 WJL-7P-38-35 656332 5122911 985204 5 6Fr 0.035 Medical (TEG-4U-83-035) GUIDE 6FR AR Medtronic 1 [id number] 695274 82817 590064 1 2.0 SH catheter ([id number]) INFLATOR Merit Merit 1 BB9265 355611 294282 459817 15 [facility] (NX9660) CHOICE PT Extra [place] 1 [id number] 932238 193902 409495 5 Support 182cm Scientific wire ([id number]) MESSI RX 3.5 x Medtronic 1 [id number] 945153 6923755 214160 5 [id number] 18 stent ([id number]) EXOSEAL 6Fr Cardinal 1 EX600 659237 930732 726379 10 (EX600) Health Signature Audit Willard Stage Time Signature Unsigned Intra-Procedure 05/12/2017 Stanley Ford 11:24:22 AM RT(R) Signatures Monitor : Stanley Ford RT Signature : Date : Time : [facility] [address] [place] [address]
--- NOTE | ~2017-05-12 | OP ---
PATIENT NAME: JERONIMO CLARKE MEDICAL RECORD: [id number] :40 LOCATION:D.CAT ADMISSION DATE: SURGEON: JESSY HARDWICK MD DATE OF OPERATION: 05/12/2017 PROCEDURES: 1. PTCA, stent, vein graft to the left circumflex. 2. Selective coronary and vein graft angiography. INDICATION: Angina and coronary artery disease. PROCEDURE IN DETAIL: After informed consent was obtained and after a detailed explanation of the risks, benefits as well as alternative therapies, the patient was elected to proceed with angiogram and angioplasty. The right femoral area was prepped and draped in normal sterile fashion. Right femoral artery was cannulated via modified Seldinger technique with placement of 6-Russian sheath. All catheters were exchanged through this sheath. FINDINGS: The left circumflex vein graft has an 80% stenosis proximally. This was addressed with a 3.5 x 18 mm Wayne stent. Result was 0% residual stenosis. OVERALL IMPRESSION: Successful percutaneous transluminal coronary angioplasty, stent of the vein graft to the left circumflex going from 80% initial stenosis to 0% residual stenosis. TRANSINT:[id number] Voice Confirmation ID: [id number] DOCUMENT ID: [id number] JESSY HARDWICK MD at 1056 CC: [id number] DICTATION DATE: 05/12/17 1122 ORTHOPEDIC SPECIALIST: 05/12/17 1144 DEP CLI 05/12/17 [place] [id number] [place] [id number]
[2017-05-12 09:57] LABS: BASOPHILS 0.6 % (0-2); HEMATOCRIT 45.2 % (42.0-54.0); HEMOGLOBIN 15.8 g/dL (13.5-17.5); IMMATURE GRANULOCYTES 0.2 % (0-5); LYMPHOCYTES 43.9 % (15-50); MCH 32.2 pg (26.0-34.0); MCV 92.1 fL (80.0-100.0); MEAN PLATELET VOLUME 10.4 fL (7.4-10.4); MONOCYTES 7.8 % (2-11); NEUTROPHILS 44.5 % (40-80); RBC 4.91 10x6/uL (4.20-6.10); RDW 14.2 % (11.5-14.5); WBC 5.4 10x3/uL (4.8-10.8)
[2017-05-12 10:02] LABS: PLATELET COUNT 229 10x3/uL (130-400)
[2017-05-12 10:05] LABS: ANION GAP 11.2 mmol/L (8-16); CREATININE - SERUM 1.1 mg/dL (0.6-1.3); POTASSIUM - SERUM 4.2 mmol/L (3.5-5.1)
[2017-05-12 10:14] VITALS: BP 155/80; Ht 177.8 cm; Wt 81.8 kg
== END | disposition home or self-care (01) ==
LOC: D.CATH 08:37
PROVIDERS: Internal Medicine Interventional Cardiology
DX: I25.119 Atherosclerotic heart disease of native coronary artery with unspecified angina pectoris (principal); Z95.5 Presence of coronary angioplasty implant and graft; I10 Essential (primary) hypertension; E78.5 Hyperlipidemia, unspecified; Z01.812 Encounter for preprocedural laboratory examination

== ENCOUNTER 2018-01-12 13:41 | Observation (INO) | payer MEDICARE ==
[~2018-01-12] VITALS: Ht 177.8 cm; Wt 0.5 kg
--- NOTE | ~2018-01-12 | EC ---
PATIENT:JERONIMO CLARKE DATE OF SERVICE: 01/12/18 SEX: M MEDICAL RECORD: [id number] DATE OF : 40 LOCATION:D.M2 D.212 AGE OF PATIENT: 77 ADMISSION DATE: 01/12/18 REFERRING PHYSICIAN: INTERPRETING PHYSICIAN: JESSY BRYANT MD ECHOCARDIOGRAM REPORT ECHO CHARGES 4 ECHO COMPLETE Date: 01/13/18 CLINICAL DIAGNOSIS: CP ECHOCARDIOGRAPHIC MEASUREMENTS (adult normal given) AC root (d.<3.7cm) 3.5 cm LV Septum d (<1.2 cm> 1.1 cm Valve Excursion 1.8 cm LV Septum (systole) 1.3 cm Left Atria (s.<4.0cm> 4.0 cm LVPW d(<1.2cm) 1.1 cm RV (d.<2.3cm) 3.1 cm LVPW (sytole) 1.3 cm LV diastole(<5.6CM) 5.0 cm MV E-F(>70mm/sec) cm LV systole 4.7 cm LVOT Diameter 1.6 cm MV exc.(>10mm) cm Est.ejection fraction (50-75%) % DOPPLER: LVIT cm/sec A 98 cm/sec E 87 cm/sec LA cm/sec RVSP 19.4 mmHg LVOT 125 cm/sec AOP1/2T m/s Asc. Ao 144 cm/sec RVOT 110 cm/sec RA cm/sec PA 107 cm/sec AV Gradient Peak 8.3 mmHg AV Mean 4.7 mmHg AV Area 1.6 cm MV Gradient Peak 5.9 mmHg MV Mean 2.7 mmHg MV Area cm COMMENTS: Applied Computer Science Professor: Armando CASH Geothermal Field Technician: 1 Dr. Bryant TAPE# PACS Pericardial Effusion N DATE OF SERVICE: 01/13/2018 FINDINGS: 1. Left ventricular chamber size is within normal limits. Left ventricular systolic function is normal. Overall ejection fraction is estimated at 55%. 2. Left atrium, right atrium, and right ventricle chamber sizes are within normal limit. 3. Valvular structures have normal structure and motion. 4. Doppler interrogation reveals no significant valvular insufficiency or stenosis. Pulmonary systolic pressure is normal, estimated at 20 mmHg. ECHOCARDIOGRAM REPORT [id number] JERONIMO CLARKE 5. No evidence of pericardial effusion or left ventricular thrombus. TRANSINT:[id number] Voice Confirmation ID: [id number] DOCUMENT ID: [id number] JESSY BRYANT MD at 1108 CC: [id number] DICTATION DATE: 01/14/18 1119 SOLID TIRE TUBER MACHINE OPERATOR: 01/14/18 1338 DIS IN 01/13/18 [place] [id number] [place] [id number]
--- NOTE | ~2018-01-12 | MORECARE ---
CASE MANAGEMENT DISCHARGE SUMMARY PATIENT: JERONIMO CLARKE UNIT: [id number] ADM DATE: 01/12/18 AGE: 77 : 40 SEX: M ROOM/BED: D.E10 AUTHOR: GIULLE NGO PHYSICIAN: REFERRING PHYSICIAN: GANESH TERRY MD DATE OF SERVICE: 01/12/18 Discharge Plan Patient Name: JERONIMO CLARKE Facility: [facility]:[place] : 1940 Planned Disposition: Anticipated Discharge Date: Discharge Date: Expected LOS: Initial Reviewer: [email or web address] Initial Review Date: 01/12/2018 Generated: 01/12/18 5:02 pm Comments DCP- Discharge Planning Updated by [id number]: Josie Tenorio on 01/12/18 2:[address] Patient Name: JERONIMO CLARKE Admission Status: ER Accout number: [id number] Admission Date: 01-12-2018 : 1940 Admission Diagnosis: Attending: GANESH TERRY Current LOS: 1 Anticipated DC Date: Planned Disposition: Primary Insurance: [employer] CHOICE PPO MCR ADVANT Discharge Planning Comments: CM SPOKE WITH PATIENT AND ABOUT DC PLANNING/NEEDS. STATES PLANS TO DC TO HOME WHEN DISCHARGED. STATES HAS NO NEEDS AND IS INDEPENDANT WITH ADL'S. CM WILL FOLLOW AND ASSIST NEEDED WITH DC PLANNING/NEEDS. Bakery Manager: Josie Tenorio DCPIA - Discharge Planning Initial Assessment Updated by [email or web address]: Josie Tenorio on 01/12/18 3:51 pm * Is the patient Alert and Oriented? Yes * PCP NONE * Pharmacy [facility] * Preadmission Environment Home with Family * ADLs Independent * Equipment None * List name and contact numbers for known caregivers / representatives who currently or will assist patient after discharge: URIEL, , * Community resources currently utilized None * Can the patient safely return to the preadmission environment? Yes * Has this patient been hospitalized within the prior 30 days at any hospital? No Patient Name: JERONIMO CLARKE Page [phone] at 1602 All edits/amendments must be made on the electronic document DICTATION DATE: 01/12/181600 SUPPORT STAFF: ALYSSA 01/12/181600 RPT#: [id number] DC DATE: STATUS: ADM IN [facility] [address] [place] [address] END OF REPORT
--- NOTE | ~2018-01-12 | MORECARE ---
CASE MANAGEMENT DISCHARGE SUMMARY PATIENT: JERONIMO CLARKE UNIT: [id number] ADM DATE: 01/12/18 AGE: 77 : 40 SEX: M ROOM/BED: D.1663 AUTHOR: JENIDOC PHYSICIAN: REFERRING PHYSICIAN: GANESH TERRY MD DATE OF SERVICE: 01/15/18 Discharge Plan Patient Name: JERONIMO CLARKE Facility: [facility]:[place] : 1940 Planned Disposition: Home Anticipated Discharge Date: 01/13/18 Discharge Date: 01/13/2018 Expected LOS: 1 Initial Reviewer: [email or web address] Initial Review Date: 01/12/2018 Generated: 01/15/18 1:22 pm Comments DCP- Discharge Planning Updated by [email or web address]: Josie Tenorio on 01/12/18 2:[address] Patient Name: JERONIMO CLARKE Admission Status: ER Accout number: [id number] Admission Date: 01-12-2018 : 1940 Admission Diagnosis: Attending: GANESH TERRY Current LOS: 1 Anticipated DC Date: Planned Disposition: Primary Insurance: [employer] CHOICE PPO MCR ADVANT Discharge Planning Comments: CM SPOKE WITH PATIENT AND ABOUT DC PLANNING/NEEDS. STATES PLANS TO DC TO HOME WHEN DISCHARGED. STATES HAS NO NEEDS AND IS INDEPENDANT WITH ADL'S. CM WILL FOLLOW AND ASSIST NEEDED WITH DC PLANNING/NEEDS. Branch Lead: Josie Tenorio DCPIA - Discharge Planning Initial Assessment Updated by [email or web address]: Josie Tenorio on 01/12/18 3:51 pm * Is the patient Alert and Oriented? Yes * PCP NONE * Pharmacy [facility] * Preadmission Environment Home with Family * ADLs Independent * Equipment None * List name and contact numbers for known caregivers / representatives who currently or will assist patient after discharge: URIEL, , * Community resources currently utilized None * Can the patient safely return to the preadmission environment? Yes * Has this patient been hospitalized within the prior 30 days at any hospital? No Last DP export: 01/12/18 3:02 p Patient Name: JERONIMO CLARKE Page [phone] at 1222 All edits/amendments must be made on the electronic document DICTATION DATE: 01/15/181220 MEASUREMENT COORDINATOR: ALYSSA 01/15/18 122 RPT#: [id number] DC DATE:01/13/18 STATUS: DIS IN [facility] [address] [place] [address] END OF REPORT
--- NOTE | ~2018-01-12 | CN ---
PATIENT NAME:JERONIMO CLARKE MEDICAL RECORD: [id number] : 40 LOCATION:D. D.2123 ADMIT DATE: 01/12/18 ACCOUNT: [id number] CONSULTING PHYSICIAN: JESSY HARDWICK MD REFERRING PHYSICIAN: GANESH TERRY MD DATE OF CONSULTATION: 01/13/2018 CARDIOLOGY CONSULTATION DIAGNOSES: 1. Pleuritic chest pain. 2. Coronary artery disease. 3. Previous coronary bypass graft surgery. 4. Previous cardiac stents. HISTORY OF PRESENT ILLNESS: This is a gentleman who had cardiac stents 2 years ago, who developed a chest pain that is pleuritic in nature. It is much worse with a deep inspiration. It is around the left axillary area, not positional, but nothing like his previous angina. EKG is normal. Troponin is normal. PHYSICAL EXAMINATION: GENERAL APPEARANCE: Well-nourished, well-developed, appears stated age. Level of distress, comfortable. PSYCHIATRIC: Mental status, alert, normal affect. Orientation, oriented to time, place and person. EYES: Lids and conjunctiva, noninjected. No discharge, no pallor. ENT: Lips, teeth, gums, normal dentition. Oropharynx, no cyanosis, no pallor. NECK: Carotid arteries, bilateral normal upstroke, no bruits, no thrills. JUGULAR VEINS: No jugular venous pressure or distention. CERVICAL LYMPH NODES: Nontender, nonenlarged. THYROID: Not enlarged. Nontender. No nodules. LUNGS: Respiratory effort, unlabored. CHEST: Normal curvature. No thoracic deformity. No chest wall tenderness. Percussion, resonant. Auscultation, clear. No wheezes, no rales, no rhonchi. CARDIOVASCULAR: Precordial exam, nondisplaced. No heaves or pericardial thrills. Rate and rhythm, regular. Heart sounds, normal S1, normal S2. No S3, no gallop, no rub. Systolic murmur, not heard. Diastolic murmur, not heard. EXTREMITIES: No cyanosis, no edema. Peripheral pulses, full and equal in all extremities, except as noted. No bruits appreciated. ABDOMEN: Soft, nondistended. Normal aorta. No bruit. Nontender. No masses. Liver, nontender, no hepatomegaly. Spleen, nontender, no splenomegaly. MUSCULOSKELETAL: No joint tenderness. No joint swelling. No erythema. NEUROLOGICAL: Normal gait, normal strength, normal tone. SKIN: Warm and dry. OVERALL IMPRESSION: Pleuritic chest pain is noncardiac in etiology. No other cardiac workup or treatment is necessary at this time. TRANSINT:[id number] Voice Confirmation ID: [id number] DOCUMENT ID: [id number] CONSULT REPORT [id number] JERONIMO CLARKE JEFFREY MD at 1108 CC: [id number] DICTATION DATE: 01/13/18 09 CEMENT OR CONCRETE FINISHING SUPERVISOR: 01/13/18 1206 DIS IN 01/13/18 [facility] [address] [place] [address]
[2018-01-12] MEDS ORDERED: BAYER CHEWABLE81 MG PO (13:47)
[2018-01-12 14:08] VITALS: BP 169/86
[2018-01-12 14:16] LABS: BASOPHILS 0.2 % (0-2); EOSINOPHILS 2.5 % (0-7); HEMATOCRIT 43.6 % (42.0-54.0); HEMOGLOBIN 14.9 g/dL (13.5-17.5); IMMATURE GRANULOCYTES 0.4 % (0-5); LYMPHOCYTES 31.3 % (15-50); MCH 31.5 pg (26.0-34.0); MCHC 34.2 g/dL (31.0-37.0); MCV 92.2 fL (80.0-100.0); MEAN PLATELET VOLUME 10.3 fL (7.4-10.4); MONOCYTES 10.4 % (2-11); NEUTROPHILS 55.2 % (40-80); PLATELET COUNT 199 10x3/uL (130-400); RBC 4.73 10x6/uL (4.20-6.10); RDW 14.3 % (11.5-14.5); WBC 8.5 10x3/uL (4.8-10.8)
[2018-01-12 14:25] LABS: ALBUMIN 3.5 g/dL (3.4-5.0); ALKALINE PHOSPHATASE 52 U/L (46-116); ALT (SGPT) 41 U/L (10-68); BILIRUBIN - TOTAL 0.68 mg/dL (0.2-1.3); CALC OSMOLALITY 278 mosm/kg (275-300); CALCIUM 8.8 mg/dL (8.5-10.1); CARBON DIOXIDE 27.5 mmol/L (21.0-32.0); CHLORIDE - SERUM 104 mmol/L (98-107); CREATININE - SERUM 1.2 mg/dL (0.6-1.3); GLUCOSE 101 mg/dL (74-106); POTASSIUM - SERUM 3.6 mmol/L (3.5-5.1); PROTEIN - SERUM 7.8 g/dL (6.4-8.2); SODIUM 139 mmol/L (136-145); UREA NITROGEN 16 mg/dL (7-18); eGFR NON AFRICAN AMERICAN 62 mL/min (90-120)
[2018-01-12 14:49] LABS: CKMB 1.7 U/L (0.0-3.6); CREATINE KINASE 124 UL (21-232); TROPONIN-I < 0.017 ng/mL (0.000-0.060)
[2018-01-12 15:00] VITALS: BP 143/82
[2018-01-12 17:10] VITALS: BP 143/78
[2018-01-12 18:35] VITALS: BP 150/84
[2018-01-12 23:53] VITALS: BP 165/83
[2018-01-13 04:00] VITALS: BP 146/79
[2018-01-13 04:49] VITALS: BP 145/81
[2018-01-13 07:41] VITALS: BP 139/80
[2018-01-13 08:51] LABS: BASOPHILS 0.3 % (0-2); EOSINOPHILS 1.8 % (0-7); HEMATOCRIT 45.9 % (42.0-54.0); HEMOGLOBIN 15.6 g/dL (13.5-17.5); IMMATURE GRANULOCYTES 0.3 % (0-5); LYMPHOCYTES 25.6 % (15-50); MCH 31.3 pg (26.0-34.0); MCV 92.2 fL (80.0-100.0); MEAN PLATELET VOLUME 10.2 fL (7.4-10.4); MONOCYTES 7.9 % (2-11); NEUTROPHILS 64.1 % (40-80); PLATELET COUNT 215 10x3/uL (130-400); RBC 4.98 10x6/uL (4.20-6.10); RDW 14.4 % (11.5-14.5)
[2018-01-13 09:04] LABS: ANION GAP 13.4 mmol/L (8-16); CALCIUM 9.5 mg/dL (8.5-10.1); CARBON DIOXIDE 26.8 mmol/L (21.0-32.0); CREATININE - SERUM 1.2 mg/dL (0.6-1.3); MAGNESIUM - SERUM 2.4 mg/dL (1.8-2.4); POTASSIUM - SERUM 4.2 mmol/L (3.5-5.1)
[2018-01-13 11:03] VITALS: Ht 177.8 cm; Wt 0.5 kg
[2018-01-13 11:28] VITALS: BP 143/80
== END 2018-01-13 12:41 | disposition home or self-care (01) ==
LOC: D.ER 13:41 → D.EDHOLD 15:17 → D.M2 15:17 → OBSVTIME 15:19 → D.M2 17:50
PROVIDERS: Emergency Medicine; Internal Medicine Nephrology
DX: R07.81 Pleurodynia (principal); I25.10 Atherosclerotic heart disease of native coronary artery without angina pectoris; Z95.1 Presence of aortocoronary bypass graft; Z95.5 Presence of coronary angioplasty implant and graft; I10 Essential (primary) hypertension; Z87.891 Personal history of nicotine dependence; L30.9 Dermatitis, unspecified; M19.90 Unspecified osteoarthritis, unspecified site

== ENCOUNTER 2018-07-13 10:53 | Observation (INO) | payer MEDICARE ==
[~2018-07-13] VITALS: Ht 177.8 cm; Wt 81.8 kg
--- NOTE | ~2018-07-13 | HEMODYNAMI ---
PATIENT:JERONIMO CLARKE MEDICAL RECORD: [id number] : 40 LOCATION:[facility] D.2123 [facility]# [id number] ADMISSION DATE: 07/13/18 Generatedon:07/14/201810:35 Patient name: JERONIMO CLARKE Patient #: [id number] SSN : : 1940 Date of study: 07/14/2018 Page: Of Hemodynamic Procedure Report Patient Data Patient Demographics Procedure consent was obtained First Name: JERONIMO Gender: Male Last Name: TRICIA : 1940 [facility] Initial: E Age: 77 year(s) Patient #: [id number] Race: Additional ID: [id number] Contact details [address]: [address] [place] [address] State: [place] City: [facility] Zip code: [address] Past Medical History Allergies Allergen Reaction Date Comments Reported Penicillins 12/17/2015 Statins 12/17/2015 Other allergy 01/20/2016 CIPROFLOXACIN, COREG, FOSAMAX, LISINOPRIL, MEXITIL, PLAVIX, QUINIDINE, RYTHMOL Other allergy 07/14/2018 PRAVASTATIN, QUININDINE, ALENDNONATE SODIUM, CARVEDILOL, CIPNOFLOXACIN, PCN, LISINOPRIL, MEXILETINE, PROPAFENONE, [id number]-[id number] REDUCTASE INHINITORS, CLOPIDOGREL. Admission Admission Data Admission Date: 07/13/2018 Admission Time: 13:13 Admit Source: Emergency department Room #: D.2123 Lab Results Lab Result Date: 07/14/2018 Lab Result Time: 2:00 Biochemistry Name Units Result Min Max BUN mg/dl 18 --(---*)-- 7 18 Creatinine mg/dl 1.2 --(---*)-- 0.6 1.3 Troponin l ng/ml 0.604 --(----)-* 0 0.06 CBC Name Units Result Min Max Hematocrit % 44.8 --(*---)-- 42 54 Hemoglobin g/dl 15.4 --(-*--)-- 13.5 17.5 Procedure Procedure Types Cath Procedure Diagnostic Procedure [facility] w/Coronaries w/Grafts Sedation Charges Moderate Sedation up to 15 minutes PCI Procedure AMI/SVG/MANAGER GAME PTCA or Stent SVG-BMS/MAXINE Additional Procedure Description Procedure Date Procedure Date: 07/14/2018 Procedure Start Time: 10:10 Procedure End Time: 10:34 Procedure Staff Name Function Bhanu Fitch MD Performing Physician Damien Niño RT Monitor Manny Pena RN Nurse Stanley Ford RT Scrub Procedure Data Cath Procedure Fluoroscopy Diagnostic fluoroscopy Total fluoroscopy Time: 3.4 time: 3.4 min min Diagnostic fluoroscopy Total fluoroscopy dose: 881 dose: 881 mGy mGy Contrast Material Contrast Material Type Amount (ml) Isovue 370 117 Entry Location Entry Primary Successful Side Size Upsize Upsize Entry Closure Succes sful Closure Location (Fr) 1 (Fr) 2 (Fr) Remarks Device Remarks Femoral Right 5 Fr 6 Fr Exoseal artery Short Estimated blood loss: 10 ml Diagnostic catheters Device Type Used For End Catheter Placement MULTIPACK JL 4.0 5Fr Procedure catheter MULTIPACK 3DRC 5Fr Procedure catheter MULTIPACK Pigtail 5 Fr Procedure catheter Procedure Complications No complications Procedure Medications Medication Administration Route Dosage 0.9% NaCl I.V. 100 ml/hr Oxygen etCO2 Nasal cannula 2 l/min Heparin Flush Bag added to field 2 bags (1000units/500ml NS) Lidocaine 2% added to field 20 Versed I.V. 1 mg Fentanyl I.V. 50 mcg Versed I.V. 1 mg Fentanyl I.V. 50 mcg Heparin Bolus I.V. 5000 units Integrilin (Bolus I.V. 7.3 ml 2mg/ml) Integrilin (Bolus wasted 2.7 ml 2mg/ml) Brilinta P.O. 180 mg Hemodynamics Rest HGB: 15.4 (g/dl) Heart Rate: 70 (bpm) Pressure Samples Time Site Value (mmHg) Purpose Heart Use Rate(bpm) 10:17 LV 154/0,33 Snapshot 74 Gradients Valve Time Site Site Mean SEP/DFP Peak To Heart Use 1 2 (mmHg) (sec/min) Peak Rate (mmHg) (bpm) Aortic 10:18 LV AO 74 Snapshots Pre Cath Intra NCS Post Cath Vital Signs Time Heart Resp SPO2 etCO2 NIBP (mmHg) Rhythm Pain Sedation Rate (ipm) (%) (mmHg) Status Level (bpm) 9:54:22 67 10 99 0 165/90(122) NSR 0 (11) 10(A) , No pain 9:58:40 64 12 98 0 151/84(130) NSR 0 (11) 10(A) , No pain 10:02:58 65 10 98 0 147/84(127) NSR 0 (11) 10(A) , No pain 10:07:11 65 11 98 21.5 158/92(127) NSR 0 (11) 10(A) , No pain 10:11:32 64 19 97 0 152/86(127) NSR 0 (11) 10(A) , No pain 10:15:46 69 19 96 0 159/93(139) NSR 0 (11) 9(A) , No pain 10:20:04 76 11 97 0 163/96(143) NSR 0 (11) 9(A) , No pain 10:24:26 73 11 98 27.5 166/86(130) NSR 0 (11) 10(A) , No pain 10:28:44 66 10 99 0 159/88(132) NSR 0 (11) 10(A) , No pain 10:32:58 80 18 100 49.1 155/92(127) NSR 0 (11) 10(A) , No pain Medications Time Medication Route Dose Verified Delivered Reason Notes Effectiveness by by 9:58:16 0.9% NaCl I.V. 100 Manny Manny Per physician ml/hr Jean Pena RN RN 9:58:26 Oxygen etCO2 2 Manny Manny for low 02 sats Nasal l/min Jean Pena cannula RN RN 9:58:37 Heparin Flush added 2 Manny Manny used for Bag to bags Jean Pena procedure (1000units/500ml field [place] RN NS) 9:58:47 Lidocaine 2% added 20ml Manny Manny for local to vial Jean Pena anesthetic field [place] RN 10:07:29 Versed I.V. 1 mg Manny Manny for sedation Jean Pena RN RN 10:07:42 Fentanyl I.V. 50 Manny Manny for sedation mcg Jean Pena RN RN 10:15:42 Versed I.V. 1 mg Manny Manny for sedation Jean Pena RN RN 10:15:48 Fentanyl I.V. 50 Manny Manny for sedation mcg Jean Pena RN RN 10:21:44 Heparin Bolus I.V. 5000 Manny Manny for units Jean Pena anticoagulation RN RN 10:21:59 Integrilin I.V. 7.3 Manny Manny for (Bolus 2mg/ml) ml Jean Pena antiplatelet RN RN therapy 10:22:10 Integrilin wasted 2.7 Manny Manny to sharp's (Bolus 2mg/ml) ml Jean Pena RN RN 10:34:14 Brilinta P.O. 180 Manny Manny for mg Jean Pena antiplatelet RN RN therapy Procedure Log Time Note 9:30:50 Stanley Ford RT(R) sent for patient. Start room use. 9:30:52 Time tracking: Call back (After hours or weekends) 9:30:56 Plan of Care:Hemodynamics will remain stable., Cardiac rhythm will remain stable., Comfort level will be maintained., Respiratory function will remain adequate., Patient/ family verbilizes understanding of procedure., Procedure tolerated without complication., Recovers from procedure without complications.. 9:47:03 Patient received from Med II to CCL 1 Alert and oriented. Tansferred to table in Supine position. 9:47:04 Warm blankets applied, and elfego hugger turned on for patient comfort. 9:47:05 Correct patient and procedure confirmed by team. 9:47:06 Signed procedure consent form obtained from patient. 9:47:07 ECG and BP/O2 sat monitors applied to patient. 9:47:08 Pre-procedure instructions explained to patient. 9:47:08 Pre-op teaching completed and patient verbalized understanding. 9:47:10 Family in waiting room. 9:47:11 Patient NPO since Midnight. 9:47:15 H&P Date Dictated: 07/14/2018 Within 30 days and on chart.. 9:53:12 Vital chart was started 9:53:13 Baseline sample Acquired. 9:53:17 Rhythm: sinus rhythm 9:53:19 Full Disclosure recording started 9:55:40 Patient allergic to Other allergyPRAVASTATIN, QUININDINE, ALENDNONATE SODIUM, CARVEDILOL, CIPNOFLOXACIN, PCN, LISINOPRIL, MEXILETINE, PROPAFENONE, [id number] REDUCTASE INHINITORS, CLOPIDOGREL. 9:55:43 Is patient on blood thinner?No 9:55:44 Patient diabetic? No. 9:55:47 Previous problem with sedation/anesthesia? No ? 9:55:48 Snore? Yes 9:55:49 Sleep apnea? No 9:55:49 Deviated septum? No 9:55:50 Opens mouth fully? Yes 9:55:55 Sticks out tongue? Yes 9:55:56 Airway obstruction? Yes ? 9:55:58 Dentures? No ? 9:56:01 Pre procedure: right posterior tibial pulse 2+ Normal; easily identifiable; not easily obliterated 9:56:04 Patient pain scale 0/10 ?. 9:56:08 IV patent on arrival in left forearm with 0.9% NaCl at KVO. 9:56:09 Lab results completed and on chart. 9:56:12 Right groin area was prepped with chlora-prep and draped in sterile fashion 9:56:12 Alarms reviewed by R. N. 9:56:13 Sharps counted by scrub and verified by R.N. 9:56:14 Use device set Femoral Dx 9:56:15 ACIST Syringe (50734) opened to sterile field. 9:56:16 Bag Decanter (2002S) opened to sterile field. 9:56:16 Medline Cath Pack ([id number]) opened to sterile field. 9:56:17 ACIST Hand Control (85276) opened to sterile field. 9:56:17 ACIST Manifold (38310) opened to sterile field. 9:56:18 Tegaderm 4 x 4 (1626W) opened to sterile field. 9:56:19 SHEATH 5FR Topanga ([id number]) opened to sterile field. 9:56:20 DIAGNOSTIC Multipack 5Fr catheter set ([id number]) opened to sterile field. 9:56:20 DIAGNOSTIC WIRE .035 260cm J wire (583337) opened to sterile field. 9:57:14 Lab Result : Creatinine 1.2 mg/dl 9:57:14 Lab Result : BUN 18 mg/dl 9:57:14 Lab Result : Troponin l 0.604 ng/ml 9:57:14 Lab Result : Hemoglobin 15.4 g/dl 9:57:14 Lab Result : Hematocrit 44.8 % 9:57:40 Admit Source: Emergency department 9:58:16 0.9% NaCl 100 ml/hr I.V. was administered by Manny Pena RN; Per physician; 9:58:26 Oxygen 2 l/min etCO2 Nasal cannula was administered by Manny Pena RN; for low 02 sats; 9:58:37 Heparin Flush Bag (1000units/500ml NS) 2 bags added to field was administered by Manny Pena RN; used for procedure; 9:58:47 Lidocaine 2% 20ml vial added to field was administered by Manny Pena RN; for local anesthetic; 10:06:09 Zero performed for pressure channel P1 10:07:03 Physician arrived 10:07:03 --------ALL STOP TIME OUT------ 10:07:03 Final Timeout: patient, procedure, and site verified with staff and physician. All members of the team are in agreement. 10:07:04 Right groin site verified by team. 10:07:07 Maximum allowable Isovue 300 dose 300ml. Physician notified. (300ml for normal creatinines. For patients with creatinine of 1.7 or higher multiply weight(kg) x 5 divided by creatinine.) 10:07:10 Fire Safety Assessment: A--An alcohol-based skin anteseptic being used preoperatively., C--Open oxygen or nitrous oxide is being used., D--An ESU, laser, or fiber-optic light is being used. 10:07:13 Physical assessment completed. ASA score P 2 - A patient with mild systemic disease as per Bhanu Fitch MD. 10:07:15 Sedation plan: IV Moderate Sedation Medication:Versed, Fentanyl 10:07:29 Versed 1 mg I.V. was administered by Manny Pena RN; for sedation; 10:07:42 Fentanyl 50 mcg I.V. was administered by Manny Pena RN; for sedation; 10:10:17 Procedure started. 10:10:19 Local anesthetic to right femoral artery with Lidocaine 2% by Bhanu Fitch MD.INITIAL ACCESS ONLY 10:10:25 A 5 Fr sheath was inserted into the Right Femoral artery 10:11:17 A MULTIPACK JL 4.0 5Fr catheter was advanced over the wire and used for Procedure. 10:12:34 LCA angiography performed. 10:12:36 Catheter exchanged over wire. 10:12:40 A MULTIPACK 3DRC 5Fr catheter was advanced over the wire and used for Procedure. 10:13:25 RCA angiography performed. 10:13:36 SVG to Circ angiography performed. 10:14:53 SVG to RCA angiography performed. 10:15:42 Versed 1 mg I.V. was administered by Manny Pena RN; for sedation; 10:15:48 Fentanyl 50 mcg I.V. was administered by Manny Pena RN; for sedation; 10:16:14 VAZQUEZ to LAD angiography performed. 10:16:34 Catheter removed. 10:16:51 A MULTIPACK Pigtail 5 Fr catheter was advanced over the wire and used for Procedure. 10:17:58 LV gram done using BLANKENSHIP 10:18:03 EF : 40 % 10:18:11 LV hemodynamics recorded. 10:18:14 Injector settings: Ml/sec: 10, Volume: 20, 10:18:34 WHISPER 300cm guide wire ([id number]) opened to sterile field. 10:18:34 INFLATOR Merit BasixCompak (ZO0562) opened to sterile field. 10:18:36 SHEATH 6FR Topanga (EWD329) opened to sterile field. 10:18:40 GUIDE 6FR AR 2.0 catheter ([id number]) opened to sterile field. 10:18:48 Sheath upsized to a 6 Fr Short. 10:18:54 6 Fr AR 2 guide catheter was inserted over the wire 10:21:44 Heparin Bolus 5000 units I.V. was administered by Manny Pena RN; for anticoagulation; 10:21:59 Integrilin (Bolus 2mg/ml) 7.3 ml I.V. was administered by Manny Pena RN; for antiplatelet therapy; 10:22:10 Integrilin (Bolus 2mg/ml) 2.7 ml wasted was administered by Manny Pena RN; to sharp's; 10:24:32 WHISPER wire advanced. 10:24:33 Wire advanced across lesion. 10:25:28 Pre PCI Site: Vein Graft PDA has 80% stenosis. 10:26:26 Place stent Inflation Number: 1 A COBRA RX 3.0 X 12 Stent was prepped and advanced across the Aorta Right -> R PDA . The stent was deployed at 14 KALE for 0:30 (min:sec) . 10:26:52 Post PCI Site: Vein Graft PDA has 0% stenosis. 10::54 Stent catheter was removed intact over wire. 10::54 Wire removed. 10:26:55 Guide catheter removed. 10:27:01 EXOSEAL 6Fr (EX600) opened to sterile field. 10:27:08 Sheath removed intact; hemostasis achieved with Exoseal to the Right Femoral artery. 10:27:10 Procedure ended.(Physican Out) 10:33:19 Fluoroscopy time 03.40 minutes. 10:33:22 Flurop Dose total: 881 10:33: Fluoroscopy dose: 881 mGy 10:33:26 Contrast amount:Isovue 370 117ml. 10:33:31 Sharps counted by scrub and verified by R.N. 10:33:31 Insertion/operative site no bleeding no hematoma. 10:33:33 Post-op/insertion site Right Femoral artery dressed using a 4 x 4 and Tegaderm. 10:33:36 Post right femoral artery:stable, soft, clean and dry 10:33:37 Post Procedure Pulses reassessed and unchanged 10:33:39 Post-procedure physical assessment completed. ASA score P 2 - A patient with mild systemic disease as per Bhanu Fitch MD. 10:33:41 Post procedure rhythm: unchanged. 10:33:43 Estimated blood loss: 10 ml 10:33:44 Post procedure instruction explained to patient.Patient verbalizes understanding. 10:33:46 Patient needs reinforcement of post procedure teaching. 10:33:59 Procedure type changed to Cath procedure, Diagnostic procedure, LHC, LHC w/Coronaries w/Grafts, Sedation Charges, Moderate Sedation up to 15 minutes, PCI procedure, AMI/SVG/MANAGER GAME PTCA or Stent, SVG-BMS/MAXINE Additional 10:34:14 Brilinta 180 mg P.O. was administered by Manny Pena RN; for antiplatelet therapy; 10:34:40 Procedure and supply charges have been captured, reviewed, submitted and are correct. 10:34:41 Procedure Complication : No complications 10:34:44 Vital chart was stopped 10:34:44 See physician's report for complete and final results. 10:34:45 Report given to PCU. 10:34:48 Patient transfered to PCU with Stretcher. 10:34:49 Procedure ended. 10:34:49 Full Disclosure recording stopped 10:34:53 End room use (Document Last) Intervention Summary Intervention Notes Time ActionType Lesion and Equipment Action# Pressure Duration Attributes Used 10:26:26 Place stent Aorta Right COBRA RX 1 14 00:30 -> R PDA 3.0 X 12 Stent Device Usage Item Name Manufacture Quantity Catalog Hospital Part Current M inimal Lot# / Number Charge Number Stock Stock Serial# Code ACIST Syringe Acist 1 32321 051108 953809 112140 2 0 (11573) Medical Systems Inc Bag Decanter Microtek 1 2001S 556015 40196 658786 5 (2001S) Medical Inc. Medline Cath Medline 1 [id number] 290333 10314 518475 5 Pack ([id number]) ACIST Hand Acist 1 55483 380078 188617 321566 5 Control Medical (52394) Systems Inc ACIST Manifold Acist 1 39353 043182 665381 021366 5 (00185) Medical Systems Inc Tegaderm 4 x 4 3M 1 1626W 260524 445089 079623 5 (1626W) SHEATH 5FR Terumo 1 TJW270 753837 958412 871870 5 Topanga (YYP281) DIAGNOSTIC Cardinal 1 RW8962 363763 17778 980651 3 0 Multipack 5Fr Health catheter set (FB4052) DIAGNOSTIC St Fabrice 1 743033 841781 941235 696606 3 0 WIRE .035 260cm J wire (126867) MULTIPACK JL Cardinal 1 175669 5 4.0 5Fr Health catheter MULTIPACK 3DRC Cardinal 1 633204 5 5Fr catheter Health MULTIPACK Cardinal 1 982901 5 Pigtail 5 Fr Health catheter WHISPER 300cm Perales 1 [id number] 614884 867379 219903 5 guide wire Vascular ([id number]) INFLATOR Merit Merit 1 PX4042 930650 290396 316749 1 5 Xplore Mobility Medical (HN4697) SHEATH 6FR Terumo 1 FLN160 847798 050835 722691 4 0 Topanga (JNP714) GUIDE 6FR AR Medtronic 1 QX0EM59 384752 53204 854335 1 2.0 catheter (LD7NI14) COBRA RX 3.0 X Celonova 1 170.53-13894 490232 04868213 0847646 0 [id number] 12 stent Biosciences (174-84-62024) EXOSEAL 6Fr Cardinal 1 EX600 004059 209254 580943 1 0 (EX600) Health Signature Audit [place] Stage Time Signature Unsigned Intra-Procedure 07/14/2018 Damien Niño 10:35:32 AM RT(R) Signatures Monitor : Damien Niño RT Signature : Date : Time : [id number] [place] [address]
[2018-07-13 11:31] LABS: BASOPHILS 0.8 % (0-2); EOSINOPHILS 3.4 % (0-7); HEMATOCRIT 46.2 % (42.0-54.0); IMMATURE GRANULOCYTES 0.3 % (0-5); LYMPHOCYTES 45.2 % (15-50); MCH 31.1 pg (26.0-34.0); MCHC 34.6 g/dL (31.0-37.0); MCV 89.7 fL (80.0-100.0); MEAN PLATELET VOLUME 10.6 fL (7.4-10.4); MONOCYTES 9.9 % (2-11); NEUTROPHILS 40.4 % (40-80); PLATELET COUNT 201 10x3/uL (130-400); RBC 5.15 10x6/uL (4.20-6.10); WBC 6.5 10x3/uL (4.8-10.8)
[2018-07-13 11:44] LABS: ALKALINE PHOSPHATASE 56 U/L (46-116); ALT (SGPT) 58 U/L (10-68); BILIRUBIN - TOTAL 0.44 mg/dL (0.2-1.3); CALC OSMOLALITY 282 mosm/kg (275-300); CALCIUM 9.3 mg/dL (8.5-10.1); CARBON DIOXIDE 28.7 mmol/L (21.0-32.0); CHLORIDE - SERUM 104 mmol/L (98-107); GLUCOSE 112 mg/dL (74-106); POTASSIUM - SERUM 4.2 mmol/L (3.5-5.1); PROTEIN - SERUM 7.7 g/dL (6.4-8.2); SODIUM 140 mmol/L (136-145); UREA NITROGEN 20 mg/dL (7-18); eGFR NON AFRICAN AMERICAN 77 mL/min (90-120)
[2018-07-13 11:49] LABS: APTT 28.6 SECONDS (22.8-39.4); INR 1.12 (0.85-1.17); PROTIME 13.9 SECONDS (11.6-15.0)
[2018-07-13 12:08] LABS: CKMB 2.3 U/L (0.0-3.6); CREATINE KINASE 92 UL (21-232); MAGNESIUM - SERUM 2.3 mg/dL (1.8-2.4)
[2018-07-13 12:11] LABS: TROPONIN-I 0.207 ng/mL (0.000-0.060)
[2018-07-13 12:30] VITALS: BP 148/74
[2018-07-13 13:36] VITALS: BP 153/79
[2018-07-13 14:01] LABS: CKMB 1.9 U/L (0.0-3.6); CREATINE KINASE 85 UL (21-232); TROPONIN-I 0.217 ng/mL (0.000-0.060)
[2018-07-13] MEDS ORDERED: ISOSORBIDE MONO30 M1 PO (14:07)
--- NOTE | 2018-07-13 14:18 | NUR ---
RECEIVED PT FROM ER. PT IS AAO AND UP AD KAYLYN. NO S/S OF DISTRESS NOTED. PT DOES NOT COMPLAIN OF CP AT THE MOMENT. VSS AND WNL. LEFT FOR PIV IS SALINE LOCKED. RR EVEN AND UNLABORED ON RA. HISTORY, MED REQ, AND QUICKSTART COMPLETED. PT DENIES ANY NEEDS AT THIS TIME. WILL CTM.
--- NOTE | 2018-07-13 15:14 | NUR ---
EKG PERFORMED AND PLACED IN CHART. AT BEDSIDE. PT DENIES ANY NEEDS. WILL CTM.
[2018-07-13 17:01] VITALS: BP 150/84
--- NOTE | 2018-07-13 17:22 | NUR ---
TELEMETRY PLACED ON PT. PT IS SINUS RHYTHYM AT 70. WILL CTM.
--- NOTE | 2018-07-13 19:35 | NUR ---
ASSESSMENT COMPLETE, PT A&O. RESPERATIONS EVEN ON RA. IV TO LEFT WRIST SL, SITE CLEAN AND DRY. AT BED SIDE. PT CURRENLTY DENIES PAIN OR NEEDS, REMINDED PT THAT HE CANT HAVE ANYTHING TO EAT OR DRINK AFTER MN FOR CARDIAC CATH TO BE DONE IN THE MORNING, PT STATED UNDERSTANDING.
[2018-07-13 20:00] VITALS: BP 141/81
[2018-07-13 20:33] LABS: CKMB 3.2 U/L (0.0-3.6); CREATINE KINASE 83 UL (21-232)
[2018-07-13 20:42] LABS: TROPONIN-I 0.356 ng/mL (0.000-0.060)
--- NOTE | 2018-07-13 20:46 | NUR ---
PT IN BED, AWAKE, DENIES PAIN OR NEEDS.
[2018-07-13 23:55] VITALS: BP 135/62
[2018-07-14 02:11] LABS: BASOPHILS 0.6 % (0-2); EOSINOPHILS 4.9 % (0-7); HEMATOCRIT 44.8 % (42.0-54.0); HEMOGLOBIN 15.4 g/dL (13.5-17.5); IMMATURE GRANULOCYTES 0.2 % (0-5); LYMPHOCYTES 53.2 % (15-50); MCH 30.7 pg (26.0-34.0); MCHC 34.4 g/dL (31.0-37.0); MCV 89.2 fL (80.0-100.0); MEAN PLATELET VOLUME 10.5 fL (7.4-10.4); MONOCYTES 9.1 % (2-11); PLATELET COUNT 187 10x3/uL (130-400); RBC 5.02 10x6/uL (4.20-6.10); RDW 14.1 % (11.5-14.5); WBC 6.5 10x3/uL (4.8-10.8)
[2018-07-14 02:34] LABS: CALC OSMOLALITY 286 mosm/kg (275-300); CALCIUM 8.8 mg/dL (8.5-10.1); CARBON DIOXIDE 26.4 mmol/L (21.0-32.0); CHLORIDE - SERUM 108 mmol/L (98-107); CKMB 3.1 U/L (0.0-3.6); CREATINE KINASE 80 UL (21-232); CREATININE - SERUM 1.2 mg/dL (0.6-1.3); GLUCOSE 106 mg/dL (74-106); POTASSIUM - SERUM 4.3 mmol/L (3.5-5.1); SODIUM 143 mmol/L (136-145); UREA NITROGEN 18 mg/dL (7-18); eGFR NON AFRICAN AMERICAN 62 mL/min (90-120)
[2018-07-14 02:47] LABS: TROPONIN-I 0.604 ng/mL (0.000-0.060)
--- NOTE | 2018-07-14 02:53 | NUR ---
RESTING WITH EYES CLOSED, RESPERATIONS EVEN, NO S/S DISTRESS NOTED.
--- NOTE | 2018-07-14 03:02 | NUR ---
I have reviewed this patient and I concur with the Shift Assessment completed by the Licensed Practical Nurse today this shift.
[2018-07-14 04:00] VITALS: BP 148/77
[2018-07-14 04:49] VITALS: BP 135/62; Ht 177.8 cm; Wt 81.8 kg
[2018-07-14 09:37] VITALS: BP 163/88
--- NOTE | 2018-07-14 12:06 | NUR ---
I have reviewed this patient and I concur with the Shift Assessment completed by the Licensed Practical Nurse today this shift.
[2018-07-14 15:18] VITALS: BP 150/86
[2018-07-14] MEDS ORDERED: EFFIENT10 MG PO (15:29)
--- NOTE | 2018-07-14 17:00 | NUR ---
D/C INSTRUCTIONS GIVEN, IV REMOVED AND PT TAKEN TO CAR VIA WHEELCHAIR.
--- NOTE | 2018-07-14 19:35 | MORECARE ---
CASE MANAGEMENT DISCHARGE SUMMARY PATIENT: JERONIMO CLARKE UNIT: [id number] ADM DATE: 07/13/18 AGE: 77 : 40 SEX: M ROOM/BED: D.4283 AUTHOR: GUILLE [employer] PHYSICIAN: REFERRING PHYSICIAN: RODNEY MOONEY MD DATE OF SERVICE: 07/14/18 Discharge Plan Patient Name: JERONIMO CLARKE Facility: [facility]:[place] : 1940 Planned Disposition: Anticipated Discharge Date: Discharge Date: 07/14/2018 Expected LOS: Initial Reviewer: [email or web address] Initial Review Date: 07/13/2018 Generated: 07/14/18 8:35 pm Patient Name: JERONIMO CLARKE Page [id number] at 1935 All edits/amendments must be made on the electronic document DICTATION DATE: 07/14/181933 INFRASTRUCTURE ADMINISTRATOR: ALYSSA 07/14/181933 RPT#: [id number] DC DATE:07/14/18 STATUS: DIS IN [facility] [address] [place] [address] END OF REPORT
--- NOTE | 2018-07-16 09:55 | CN ---
PATIENT NAME:JERONIMO CLARKE MEDICAL RECORD: [id number] : 40 LOCATION:D. D.2123 ADMIT DATE: 07/13/18 ACCOUNT: [id number] CONSULTING PHYSICIAN: RODNEY MOONEY MD REFERRING PHYSICIAN: RODNEY MOONEY MD DATE OF CONSULTATION: 07/13/2018 HISTORY OF PRESENT ILLNESS: A 77-year-old gentleman with a known history of coronary artery disease, status post intervention, has a history of hypertension, hyperlipidemia, admitted with NSTEMI. He is riding his bike today, had a classic angina radiating to the jaw, which has abated with 1 nitroglycerin and cessation of activity, had onset with working around the house, found to have enzymes consistent with NSTEMI, we were asked to see him concerning his cardiovascular status. PAST MEDICAL HISTORY: Includes: 1. History of hypertension. 2. Hyperlipidemia. 3. Coronary artery disease as described above. ALLERGIES: PENICILLIN, STATINS, CLONIDINE, LISINOPRIL, CIPRO, PRAVASTATIN, CARVEDILOL. MEDICATIONS: Imdur 30 mg p.o. every day, aspirin 325 every day. SOCIAL HISTORY: . Nonsmoker and nondrinker. Does exercise on a regular basis. REVIEW OF SYSTEMS: The patient reports easy bruising but reports no swollen glands. The patient reports no fever, no night sweats, no significant weight gain, no significant weight loss. No significant exercise tolerance. The patient reports no dry eyes, no irritation, no vision change. Patient reports no difficulty hearing and no ear pain. Patient reports no frequent nose bleeds or nose and sinus problems. Patient reports on arm pain on exertion. No shortness of breath while lying down. No history of heart murmur. Patient reports no cough, no wheezing or coughing up blood. Patient reports no abdominal pain, no vomiting. Normal appetite. No diarrhea and not vomiting blood. No nausea and no constipation. Patient reports no incontinence. No difficulty urinating. No hematuria. No increased frequency. Patient reports no muscle aches. No weakness, no arthralgias, no back pain. No swelling of the extremities. Patient reports no abnormal mole, no jaundice, no rashes. Reports no loss of consciousness. No weakness and no numbness. No seizures, dizziness, or headaches. The patient reports no depression, no sleep disturbance, feeling safe in a relationship and no alcohol abuse. Patient reports on fatigue. Reports no runny nose or sinus pressure. No itching, no hives, and no frequent sneezing. PHYSICAL EXAMINATION: GENERAL: A pleasant gentleman, no acute distress, appears younger than age. VITAL SIGNS: 150/84, pulse 60 and regular. HEENT: Normocephalic, atraumatic. NECK: No bruits noted. HEART: Regular, II/ systolic ejection murmur. LUNGS: Good air excursion. ABDOMEN: Soft, nontender. CONSULT REPORT [id number] JERONIMO CLARKE EXTREMITIES: Pulses 2+ with no edema. NEUROLOGIC: Intact. DIAGNOSTIC DATA: ECG shows nonspecific ST-T changes inferolaterally. IMPRESSION: Yau-CT-wnzmzxuyw myocardial infarction with a known history of coronary artery disease. PLAN: For angiography, intervention based on above. TRANSINT:[id number] Voice Confirmation ID: [id number] DOCUMENT ID: [id number] RODNEY MOONEY MD at 0955 CC: [id number] DICTATION DATE: 07/13/18 1721 INFRASTRUCTURE DESIGN ENGINEER: 07/14/18 0007 DIS IN 07/14/18 [facility] [address] [place] [address]
--- NOTE | 2018-07-16 09:55 | OP ---
PATIENT NAME: JERONIMO CLARKE MEDICAL RECORD: [id number] :40 LOCATION:D.M2 D.2123 ADMISSION DATE:07/13/18 SURGEON: RODNEY MOONEY MD DATE OF OPERATION: PROCEDURE: Left heart catheterization, selective coronary angiography plus vein graft to the right circumflex, VAZQUEZ to the LAD and intervention of the saphenous vein graft to the right. FINDINGS: Left ventriculography on 30-degree BLANKENSHIP view overall shows hypokinesis of the inferior wall, LV function reduced at 40% to 45%. CORONARY ANATOMY: LEFT MAIN: Left main basically fills only ramus high OM branch. LAD: Totally occluded proximally. CIRCUMFLEX: Totally occluded proximally. RIGHT CORONARY ARTERY: Totally occluded proximally. VAZQUEZ TO LAD: Widely patent throughout its course with some distal disease at the apex apex to LAD. CIRCUMFLEX GRAFT: This is widely patent with good runoff distally. SAPHENOUS VEIN GRAFT TO THE RIGHT: This shows end-stent restenosis fairly discrete of a 90% obviously infarct-related artery. PLAN: Intervention momentarily. DESCRIPTION OF PROCEDURE: A 5-Qatari sheath was exchanged for a 6-Qatari sheath. AR2 guiding catheter provided excellent guide catheter support followed by a 300 cm Whisper wire was placed across the tightly occluded lesion down to the first vessel. Stent deployed was a 3.0 x 12 Cobra stent up to 14 atmospheres. Final angiography shows excellent resolution of 90% stenosis, no significant residual. DORIS flow was 3 throughout the procedure. Sheath was closed with ExoSeal device. Brilinta was loaded in the lab. TRANSINT:[id number] Voice Confirmation ID: [id number] DOCUMENT ID: [id number] RODNEY MOONEY MD at 0955 CC: [id number] DICTATION DATE: 07/14/[address] MAN: 07/14/18 1219 DIS IN 07/14/18 [place] [id number] [facility] [place] [address]
== END 2018-07-14 17:02 | disposition home or self-care (01) ==
LOC: D.ER 10:53 → OBSVTIME 13:13 → D.M2 13:13
PROVIDERS: Emergency Medicine; ADMIT Internal Medicine Interventional Cardiology; ATTEND Internal Medicine Interventional Cardiology
DX: I21.A9 Other myocardial infarction type (principal); E78.5 Hyperlipidemia, unspecified; I10 Essential (primary) hypertension; T82.855A Stenosis of coronary artery stent, initial encounter; Y83.8 Other surgical procedures as the cause of abnormal reaction of the patient, or of later complication, without mention of misadventure at the time of the procedure; I25.82 Chronic total occlusion of coronary artery; I25.10 Atherosclerotic heart disease of native coronary artery without angina pectoris

== ENCOUNTER 2018-12-17 21:52 | Inpatient (IN) | payer MEDICARE ==
[~2018-12-17] VITALS: Ht 177.8 cm; Wt 82.6 kg
--- NOTE | ~2018-12-17 | HEMODYNAMI ---
PATIENT:JERONIMO CLARKE MEDICAL RECORD: [id number] : 40 LOCATION:[facility] D.2308 [facility]# [id number] ADMISSION DATE: 12/17/18 Generatedon:12/18/201815:41 Patient name: JERONIMO CLARKE Patient #: [id number] SSN : [id number] : 1940 Date of study: 12/18/2018 Page: Of Hemodynamic Procedure Report Patient Data Patient Demographics Procedure consent was obtained First Name: JERONIMO Gender: Male Last Name: TRICIA : 1940 [facility] Initial: E Age: 78 year(s) Patient #: [id number] Race: SSN: [id number] Additional ID: [id number] Contact details Address: [address] [place] [address] State: [place] City: [facility] Zip code: [address] Past Medical History Allergies Allergen Reaction Date Comments Reported Penicillins 12/17/2015 Statins 12/17/2015 Other allergy 01/20/2016 CIPROFLOXACIN, COREG, FOSAMAX, LISINOPRIL, MEXITIL, PLAVIX, QUINIDINE, RYTHMOL Other allergy 07/14/2018 PRAVASTATIN, QUININDINE, ALENDNONATE SODIUM, CARVEDILOL, CIPNOFLOXACIN, PCN, LISINOPRIL, MEXILETINE, PROPAFENONE, EBHEBK-INH-BIF REDUCTASE INHINITORS, CLOPIDOGREL. Admission Admission Data Admission Date: 12/17/2018 Admission Time: 23:10 Arrival Date: 12/17/2018 Arrival Time: 23:10 Admit Source: Emergency Insurance Payor: Private department health insurance Room #: D.2308 [facility] #: [id number] Height (in.): 70.08 BSA: 2.33 (m2) Height (cm.): 178 BMI: 36.93 (kg/m2) Weight (lbs.): 257.94 Weight (kg.): 117 Lab Results Lab Result Date: 12/18/2018 Lab Result Time: 0:00 Biochemistry Name Units Result Min Max BUN mg/dl 14 --(--*-)-- 7 18 Creatinine mg/dl 1.3 --(---*)-- 0.6 1.3 eGFR ml/min 57 *-(----)-- 90 120 NONAFRICAN CBC Name Units Result Min Max Hemoglobin g/dl 15.6 --(--*-)-- 13.5 17.5 Procedure Procedure Types Cath Procedure Diagnostic Procedure LHC LHC w/Coronaries w/Grafts Sedation Charges Moderate Sedation up to 15 minutes Procedure Description Procedure Date Procedure Date: 12/18/2018 Procedure Start Time: 15:24 Procedure End Time: 15:35 Procedure Staff Name Function Bhanu Fitch MD Performing Physician Akosua Lopez RT Monitor Arleen Otoole RT Scrub Fatimah Deutsch RN Nurse Procedure Data Cath Procedure Fluoroscopy Diagnostic fluoroscopy Total fluoroscopy Time: 2.1 time: 2.1 min min Diagnostic fluoroscopy Total fluoroscopy dose: 581 dose: 581 mGy mGy Contrast Material Contrast Material Type Amount (ml) Isovue 300 68 Entry Location Entry Primary Successful Side Size Upsize Upsize Entry Closure Succes sful Closure Location (Fr) 1 (Fr) 2 (Fr) Remarks Device Remarks Femoral Right 5 Fr Exoseal artery Estimated blood loss: 5 ml Diagnostic catheters Device Type Used For End Catheter Placement MULTIPACK JL 4.0 5Fr Left Coronary catheter Angiography MULTIPACK 3DRC 5Fr Right Coronary catheter Angiography MULTIPACK Pigtail 5 Fr LV Angiography catheter Procedure Complications No complications Procedure Medications Medication Administration Route Dosage 0.9% NaCl I.V. 100 ml/hr Oxygen etCO2 Nasal cannula 2 l/min Lidocaine 2% added to field 20 Heparin Flush Bag added to field 2 bags (1000units/500ml NS) Versed 1 mg Hemodynamics Rest BSA: 2.33 (m2) HGB: 15.6 (g/dl) O2 Consumption: Estimated: 245.93 (ml/min) O2 Co nsumption indexed: Estimated:105.55 (ml/min/m) Heart Rate: 46 (bpm) Pressure Samples Time Site Value (mmHg) Purpose Heart Use Rate(bpm) 15:30 LV 144/29,35 Snapshot 44 Gradients Valve Time Site Site Mean SEP/DFP Peak To Heart Use 1 2 (mmHg) (sec/min) Peak Rate (mmHg) (bpm) Aortic 15:31 LV AO 44 Snapshots Pre Cath Intra NCS Post Cath Vital Signs Time Heart Resp SPO2 etCO2 NIBP (mmHg) Rhythm Pain Sedation Rate (ipm) (%) (mmHg) Status Level (bpm) 15:13:33 45 16 97 18 148/65(112) SB 0 (11) 8(A) , No pain 15:17:47 45 18 97 15.9 141/114(136) SB 0 (11) 8(A) , No pain 15:22:04 46 15 96 23.6 130/80(116) SB 0 (11) 8(A) , No pain 15:27:02 46 19 97 0 Measuring SB 0 (11) 8(A) , No pain 15:27:09 46 18 96 0 137/81(111) SB 0 (11) 8(A) , No pain 15:31:23 45 15 98 14 142/79(108) SB 0 (11) 8(A) , No pain 15:36:22 46 18 98 12.2 145/83(125) SB 0 (11) 8(A) , No pain Medications Time Medication Route Dose Verified Delivered Reason Notes Eff ectiveness by by 15:17:45 0.9% NaCl I.V. 100 Bhanu Sheridan used for ml/hr Little Get procedure RN 15:17:52 Oxygen etCO2 2 Bhanu Sheridan used for Nasal l/min Little Get procedure cannula RN 15:17:56 Lidocaine 2% added 20ml Bhanu Drummond for local to vial [facility] anesthetic field MD CURRIE 15:18:00 Heparin Flush added 2 Bhanu Drummond used for Bag to bags [facility] procedure (1000units/500ml field MD CURRIE NS) 15:18:07 Versed 1 mg Bhanu Fitch MD, MD Procedure Log Time Note 14:40:35 Arleen Otoole RT(R) sent for patient. Start room use. 14:50:52 Informed consent obtained and on chart 14:51:59 Admit Source: Emergency department 14:52:02 Arrival Date: 12/17/2018 11:10:00 PM 14:52:20 Insurance Payor : Private health insurance 14:52:28 Patient Height : 70.08 inches 14:52:32 Patient Weight : 257.94 lbs 14:53:13 Lab Result : Creatinine 1.3 mg/dl 14:53:13 Lab Result : eGFR NONAFRICAN 57 ml/min 14:53:13 Lab Result : BUN 14 mg/dl 14:53:13 Lab Result : Hemoglobin 15.6 g/dl 14:53:34 3a) 45-59 Moderately reduced kidney function. 14:53:39 Maximum allowable contrast dose (3.7 X eGFR X 0.75)158 ml. 14:53:45 Risk of Mortality: 8.5 14:53:50 Risk of blood transfusion: 3.3 14:53:55 Risk of SAIRA: 10.3 14:59:15 Diagnostic Cath Status : Urgent 14:59:31 Pt received from ICU bed 8 to CL 2 on RA, SpO2 on RA 97%. Pt unable to speak but does attempt to follow commands. Squeezes left hand upon command but does not move any other extremities when asked. VSS. MD notified of pt condition. Will continue to monitor. 14:59:43 Time tracking: Regular hours (M-F 7:00 - 5:00) 14:59:47 Plan of Care:Hemodynamics will remain stable., Cardiac rhythm will remain stable., Comfort level will be maintained., Respiratory function will remain adequate., Patient/ family verbilizes understanding of procedure., Procedure tolerated without complication., Recovers from procedure without complications.. 14:59:55 Patient received from ICU to CCL 2 Alert and oriented. Tansferred to table in Supine position. 14:59:56 Warm blankets applied, and elfego hugger turned on for patient comfort. 14:59:56 Correct patient and procedure confirmed by team. 14:59:57 ECG and BP/O2 sat monitors applied to patient. 15:12:08 Vital chart was started 15:12:52 Baseline sample Acquired. 15:13:02 Rhythm: atrial fibrillation 15:13:03 Full Disclosure recording started 15:13:07 H&P Date Dictated: 12/18/2018 New H&P dictated by physician.. 15:13:08 Pre-procedure instructions explained to patient. 15:13:09 Pre-op teaching completed and patient verbalized understanding. 15:13:11 Family in waiting room. 15:13:12 Patient NPO since Midnight. 15:13:15 Is the patient allergic to Iodine/contrast media? No. 15:13:16 Was the patient premedicated? Yes 15:13:18 Is patient on blood thinner?Yes 15:13:21 ACC The patient was administered the following blood thiners within the last 24 hours: ACCEffient 15:13:24 Patient diabetic? No. 15:13:32 Previous problem with sedation/anesthesia? No ? 15:13:34 Snore? Yes 15:13:35 Sleep apnea? No 15:13:36 Deviated septum? No 15:13:37 Opens mouth fully? Yes 15:13:37 Sticks out tongue? Yes 15:13:39 Airway obstruction? No ? 15:13:41 Dentures? No ? 15:13:46 Pre procedure: right dorsailis pedis pulse 1+ Palpable, but thready & weak; easily obliterated 15:13:48 Pre procedure: left dorsailis pedis pulse 1+ Palpable, but thready & weak; easily obliterated 15:13:50 Patient pain scale 0/10 ?. 15:13:58 IV patent on arrival in right hand with 0.9% NaCl at [facility]. 15:14:00 Lab results completed and on chart. 15:14:06 Right groin area was prepped with chlora-prep and draped in sterile fashion 15:14:07 Alarms reviewed by R. N. 15:14:07 Sharps counted by scrub and verified by R.N. 15:14:12 Physician arrived 15:14:13 --------ALL STOP TIME OUT------ 15:14:13 Final Timeout: patient, procedure, and site verified with staff and physician. All members of the team are in agreement. 15:14:16 Right groin site verified by team. 15:14:20 Fire Safety Assessment: A--An alcohol-based skin anteseptic being used preoperatively., C--Open oxygen or nitrous oxide is being used., D--An ESU, laser, or fiber-optic light is being used. 15:14:25 Physical assessment completed. ASA score P 2 - A patient with mild systemic disease as per Bhanu Fitch MD. 15:14:56 Sedation plan: IV Moderate Sedation Medication:Versed, Fentanyl 15:14:59 Use device set Femoral Dx 15:15:00 ACIST Syringe (52778) opened to sterile field. 15:15:01 Bag Decanter (2002S) opened to sterile field. 15:15:01 Medline Cath Pack ([id number]) opened to sterile field. 15:15:02 ACIST Hand Control (51805) opened to sterile field. 15:15:02 ACIST Manifold (71419) opened to sterile field. 15:15:03 DIAGNOSTIC Multipack 5Fr catheter set (LK6744) opened to sterile field. 15:15:03 Tegaderm 4 x 4 (1626W) opened to sterile field. 15:15:04 SHEATH 5FR Weston (UFQ899) opened to sterile field. 15:15:05 EMERALD Guide Wire (278-559) opened to sterile field. 15:17:45 0.9% NaCl 100 ml/hr I.V. was administered by Fatimah Deutsch RN; used for procedure; Verbal order read back and verified. 15:17:52 Oxygen 2 l/min etCO2 Nasal cannula was administered by Fatimah Deutsch RN; used for procedure; Verbal order read back and verified. 15:17:56 Lidocaine 2% 20ml vial added to field was administered by Bhanu Fitch MD; for local anesthetic; Verbal order read back and verified. 15:18:00 Heparin Flush Bag (1000units/500ml NS) 2 bags added to field was administered by Bhanu Fitch MD; used for procedure; Verbal order read back and verified. 15:18:07 Versed 1 mg was administered by Bhanu Fitch MD; ; Verbal order read back and verified. 15:24:30 Procedure started. 15:24:33 Local anesthetic to right femoral artery with Lidocaine 2% by Bhanu Fitch MD.INITIAL ACCESS ONLY 15:24:41 A 5 Fr sheath was inserted into the Right Femoral artery 15::21 A MULTIPACK JL 4.0 5Fr catheter was advanced over the wire and used for Left Coronary Angiography. 15:26:14 LCA angiography performed. 15::23 Injector settings: Ml/sec: 3, Volume: 6, 15:26:33 Catheter removed. 15:26:36 A MULTIPACK 3DRC 5Fr catheter was advanced over the wire and used for Right Coronary Angiography. 15:28:42 SVG to RCA angiography performed. 15:28:53 SVG to Circ angiography performed. 15:29:27 VAZQUEZ to LAD angiography performed. 15:29:32 Catheter removed. 15:29:38 A MULTIPACK Pigtail 5 Fr catheter was advanced over the wire and used for LV Angiography. 15:30:49 LV hemodynamics recorded. 15:30:50 LV gram done using BLANKENSHIP 15::53 Injector settings: Ml/sec: 5, Volume: 15, 15:31:02 EF : 30 % 15:31:44 EXOSEAL 5Fr (EX500) opened to sterile field. 15:32:06 Sheath removed intact; hemostasis achieved with Exoseal to the Right Femoral artery. 15:32:23 Procedure ended.(Physican Out) 15:32:48 Fluoroscopy time 02.10 minutes. 15:33:04 Fluoroscopy dose: 581 mGy 15:33:04 Flurop Dose total: 581 15:33:57 Dose Area Product 16784 mGy/cm. 15:34:00 Contrast amount:Isovue 300 68ml. 15:34:04 Maximum allowable dose exceeded? No. 15:34:06 Sharps counted by scrub and verified by R.N. 15:34:07 Insertion/operative site no bleeding no hematoma. 15:34:09 Post-op/insertion site Right Femoral artery dressed using a 4 x 4 and Tegaderm. 15:34:13 Post Procedure Pulses reassessed and unchanged 15:34:18 Post procedure rhythm: unchanged. 15:34:28 Estimated blood loss: 5 ml 15:34:30 Post procedure instruction explained to patient.Patient verbalizes understanding. 15:34:30 Patient needs reinforcement of post procedure teaching. 15:34:47 Procedure type changed to Cath procedure, Diagnostic procedure, LHC, LHC w/Coronaries w/Grafts, Sedation Charges, Moderate Sedation up to 15 minutes 15:34:54 Procedure and supply charges have been captured, reviewed, submitted and are correct. 15:34:58 Procedure Complication : No complications 15:35:00 Vital chart was stopped 15:35:10 [facility] Findings: mild to moderate CAD (<70%) 15:35:16 Operative report dictated upon procedure completion. 15:35:16 See physician's report for complete and final results. 15:35:24 Report given to ICU. 15:35:41 Patient transfered to ICU with Stretcher. 15:35:43 Procedure ended. 15:35:43 Full Disclosure recording stopped 15:36:59 End room use (Document Last) Device Usage Item Name Manufacture Quantity Catalog Hospital Part Current Minimal L ot# / Number Charge Number Stock Stock Serial# Code ACIST Acist 1 99887 335547 033484 838517 20 Syringe Medical (06387) Systems Inc Bag Microtek 1 2001S 613535 29121 123878 5 Decanter Medical Inc. () Medline Medline 1 [id number] 241817 39389 739519 5 Cath Pack ([id number]) ACIST Hand Acist 1 67466 642976 595297 105148 5 Control Medical (69688) Systems Inc ACIST Acist 1 46517 907873 944963 219225 5 Manifold Medical (96521) Systems Inc DIAGNOSTIC Cardinal 1 [id number] 917506 42073 438837 30 Multipack Health 5Fr catheter set (TE8294) Tegaderm 4 3M 1 1626W 972007 241661 671352 5 x 4 (1626W) SHEATH 5FR Terumo 1 CJZ948 537191 836731 044152 5 Weston (HMG621) EMERALD Cardinal 1 502-485 069624 205993 578408 5 Guide Wire Health (502-105) MULTIPACK Cardinal 1 721429 5 JL 4.0 5Fr Health catheter MULTIPACK Cardinal 1 627685 5 3DRC 5Fr Health catheter MULTIPACK Cardinal 1 554969 5 Pigtail 5 Health Fr catheter EXOSEAL 5Fr Cardinal 1 EX500 963233 035570 844541 10 (EX500) Health Signature Audit [place] Stage Time Signature Unsigned Intra-Procedure 12/18/2018 Akosua Lopez 3:39:22 PM RT(R) Intra-Procedure 12/18/2018 Fatimah Deutsch 3:39:53 PM RN Intra-Procedure 12/18/2018 Bhanu Castellano 3:41:04 PM Moose CURRIE Signatures Performing Physician : Signature : Bhanu Fitch MD Date : Time : Monitor : Akosua Lopez RT Signature : Date : Time : Nurse : Fatimah Deutsch RN Signature : Date : Time : [address] [place] [address]
[2018-12-17 22:46] VITALS: BP 169/114
--- NOTE | 2018-12-17 22:47 | NUR ---
PT IN WITH C/O RAPID HEART RATE, STATES IT STARTED AROUND 1500 THIS AFTERNOON, TOOK 325MG ASA, NITRO SL X1, NO CHANGE. DENIES ANY CHEST PAIN, STATES HE HASN'T HAD ANY PAIN. PT IS A+O X3, IS AT BEDSIDE.
[2018-12-17 23:06] LABS: BASOPHILS 0.3 % (0-2); EOSINOPHILS 3.9 % (0-7); HEMATOCRIT 48.1 % (42.0-54.0); HEMOGLOBIN 15.9 g/dL (13.5-17.5); IMMATURE GRANULOCYTES 0.1 % (0-5); LYMPHOCYTES 49.5 % (15-50); MCH 30.9 pg (26.0-34.0); MCHC 33.1 g/dL (31.0-37.0); MCV 93.6 fL (80.0-100.0); MEAN PLATELET VOLUME 10.6 fL (7.4-10.4); MONOCYTES 8.7 % (2-11); NEUTROPHILS 37.5 % (40-80); RBC 5.14 10x6/uL (4.20-6.10); RDW 14.2 % (11.5-14.5); WBC 7.2 10x3/uL (4.8-10.8)
[2018-12-17 23:10] LABS: PLATELET COUNT 249 10x3/uL (130-400)
[2018-12-17 23:15] LABS: INR 1.08 (0.85-1.17); PROTIME 13.5 SECONDS (11.6-15.0)
[2018-12-17 23:16] LABS: APTT 27.6 SECONDS (22.8-39.4)
[2018-12-17 23:28] LABS: CALC OSMOLALITY 288 mosm/kg (275-300); CALCIUM 9.1 mg/dL (8.5-10.1); CARBON DIOXIDE 28.7 mmol/L (21.0-32.0); CHLORIDE - SERUM 105 mmol/L (98-107); CREATININE - SERUM 1.1 mg/dL (0.6-1.3); GLUCOSE 110 mg/dL (74-106); POTASSIUM - SERUM 3.6 mmol/L (3.5-5.1); SODIUM 144 mmol/L (136-145); UREA NITROGEN 15 mg/dL (7-18); eGFR NON AFRICAN AMERICAN 69 mL/min (90-120)
[2018-12-17 23:52] LABS: ALBUMIN 3.8 g/dL (3.4-5.0); ALKALINE PHOSPHATASE 72 U/L (46-116); ALT (SGPT) 55 U/L (10-68); BILIRUBIN - TOTAL 0.38 mg/dL (0.2-1.3); CKMB 9.1 U/L (0.0-3.6); CREATINE KINASE 189 UL (21-232); MAGNESIUM - SERUM 2.3 mg/dL (1.8-2.4); PRO BNP 2139 pg/mL (0-450); PROTEIN - SERUM 8.1 g/dL (6.4-8.2)
[2018-12-17 23:55] LABS: TROPONIN-I 1.799 ng/mL (0.000-0.060)
[2018-12-18] VITALS (21 sets, daily range): BP systolic 96–154; BP diastolic 50–112; BMI 37.0
[2018-12-18] MEDS ORDERED: ASPIRIN325 MG PO (00:25)
--- NOTE | 2018-12-18 03:15 | NUR ---
CALLED TO PATIENT ROOM BY HIS . PATIENT STATING HE WAS NOT FEELING WELL. PATIENT DIAPHORETIC. VITAL SIGNS TAKEN BP 74/46. EKG OBTAINED. BUSINESS DEVELOPMENT CONSULTANT STATED THAT PATIENT HR 32. RAPID RESPONSE CALLED. 500 ML BOLUS ADMINISTERED. CARDIAC ENZYMES OBTAINED. ANSLEY WISE APN AND DR. GONZALEZ PAGED FOR PATIENT COMDITION. BETAPACE D/Cd BY DR. STEPHENSON. SERIAL BP BEING TAKEN Q 30. PATIENT NPO.
--- NOTE | 2018-12-18 04:16 | NUR ---
SPOKE WITH ANSLEY MARTINO APN AT [address] TO [address] [facility]. DR. NEVILLE CALLED AND MADE AWARE OF PATIENT CONDITION. NEW ORDERS RECEIVED AND ORDER TO NOT CALL THE TROPONIN WAS GIVEN AT THIS TIME. DR. NEVILLE AWARE OF TROPONIN BEING ELEVATED.
[2018-12-18 05:07] LABS: CKMB 6.1 U/L (0.0-3.6); CREATINE KINASE 134 UL (21-232)
[2018-12-18 05:10] LABS: TROPONIN-I 2.029 ng/mL (0.000-0.060)
[2018-12-18 05:38] LABS: BASOPHILS 0.5 % (0-2); EOSINOPHILS 3.9 % (0-7); HEMATOCRIT 47.4 % (42.0-54.0); HEMOGLOBIN 15.6 g/dL (13.5-17.5); IMMATURE GRANULOCYTES 0.2 % (0-5); LYMPHOCYTES 47.6 % (15-50); MCHC 32.9 g/dL (31.0-37.0); MCV 94.2 fL (80.0-100.0); MEAN PLATELET VOLUME 10.9 fL (7.4-10.4); MONOCYTES 8.3 % (2-11); NEUTROPHILS 39.5 % (40-80); PLATELET COUNT 246 10x3/uL (130-400); RBC 5.03 10x6/uL (4.20-6.10); RDW 14.4 % (11.5-14.5)
[2018-12-18 06:13] LABS: ANION GAP 15.1 mmol/L (8-16); CALCIUM 9.1 mg/dL (8.5-10.1); CARBON DIOXIDE 26.1 mmol/L (21.0-32.0); CREATININE - SERUM 1.3 mg/dL (0.6-1.3); MAGNESIUM - SERUM 2.3 mg/dL (1.8-2.4); PHOSPHOROUS 4.4 mg/dL (2.5-4.9)
[2018-12-18 06:15] LABS: POTASSIUM - SERUM 4.2 mmol/L (3.5-5.1)
--- NOTE | 2018-12-18 08:40 | NUR ---
ASSESSMENT COMPLETE PER FLOW SHEET. VSS. NO NEW CHANGES FAMILY AT BEDSIDE WILL CONTINUE TO MONITOR
--- NOTE | 2018-12-18 09:10 | NUR ---
DR MOONEY AT BEDSIDE FAMILY AT BEDSIDE GIVE NUDPATE
[2018-12-18 09:16] LABS: CHOL - HDL RATIO 5.3 ratio (2.3-4.9); LDL-HDL RATIO 3.5 ratio (1.5-3.5)
[2018-12-18 09:29] LABS: CKMB 5.5 U/L (0.0-3.6); CREATINE KINASE 144 UL (21-232)
[2018-12-18 09:37] LABS: TROPONIN-I 1.372 ng/mL (0.000-0.060)
--- NOTE | 2018-12-18 11:00 | NUR ---
REASSESSMENT COMPLETE PER FLOW SHEET. VSS. NO NEW CHANGES WILL CONTINUE TO MONITOR
[2018-12-18 11:16] LABS: CKMB 5.1 U/L (0.0-3.6); CREATINE KINASE 148 UL (21-232)
[2018-12-18 11:18] LABS: TROPONIN-I 1.125 ng/mL (0.000-0.060)
--- NOTE | 2018-12-18 13:25 | NUR ---
DAIRY TECHNOLOGIST AT BEDSIDE STATED TO PREOP AT THIS TIME. MEDS ADM.
--- NOTE | 2018-12-18 15:20 | NUR ---
REASSESSMENT COMPLETE PER FLOW SHEET. VSS. NO NEW CHANGES WILL CONTINUE TO MONITOR
--- NOTE | 2018-12-18 16:04 | CN ---
PATIENT NAME:JERONIMO CLARKE MEDICAL RECORD: [id number] : 40 LOCATION:[facility]8 ADMIT DATE: 12/17/18 ACCOUNT: [id number] CONSULTING PHYSICIAN: RODNEY MOONEY MD REFERRING PHYSICIAN: GANESH TERRY MD DATE OF CONSULTATION: 12/18/2018 HISTORY OF PRESENT ILLNESS: A 78-year-old gentleman with a known history of coronary artery disease status post most recent intervention by myself to the right coronary with Cobra stenting. He had had onset yesterday of atrial flutter 2:1. This abrupt onset by he and his 's report. He had never had flutter in the past was allergic to multiple antiarrhythmics, using clonidine and Mexitil. LV function in the past has been around 40%. Received 120 of Betapace and has returned with a sinus rhythm; however, he does have some atrial activity as well with retrograde P's. He did have nausea and sweatiness with a junctional rhythm. Questionable the right coronary lesion with increased vagal tone. We are asked to see him concerning his cardiovascular status. PAST MEDICAL HISTORY: Includes: 1. History of hypertension. 2. Hyperlipidemia. 3. Cardiac arrhythmias. MEDICATIONS: Include Imdur 30 mg p.o. every day, aspirin 325 every day. ALLERGIES: MEXITIL, CARVEDILOL, PRAVASTATIN, CIPROFLOXACIN, LISINOPRIL, HMG-COA REDUCTASE INHIBITORS, PENICILLINS. SOCIAL HISTORY: Lives at home, good family support. Nonsmoker. No set exercise program. REVIEW OF SYSTEMS: The patient reports easy bruising but reports no swollen glands. The patient reports no fever, no night sweats, no significant weight gain, no significant weight loss. No significant exercise tolerance. The patient reports no dry eyes, no irritation, no vision change. Patient reports no difficulty hearing and no ear pain. Patient reports no frequent nose bleeds or nose and sinus problems. Patient reports on arm pain on exertion. No shortness of breath while lying down. No history of heart murmur. Patient reports no cough, no wheezing or coughing up blood. Patient reports no abdominal pain, no vomiting. Normal appetite. No diarrhea and not vomiting blood. No nausea and no constipation. Patient reports no incontinence. No difficulty urinating. No hematuria. No increased frequency. Patient reports no muscle aches. No weakness, no arthralgias, no back pain. No swelling of the extremities. Patient reports no abnormal mole, no jaundice, no rashes. Reports no loss of consciousness. No weakness and no numbness. No seizures, dizziness, or headaches. The patient reports no depression, no sleep disturbance, feeling safe in a relationship and no alcohol abuse. Patient reports on fatigue. Reports no runny nose or sinus pressure. No itching, no hives, and no frequent sneezing. PHYSICAL EXAMINATION: GENERAL: Pleasant gentleman in no acute distress. VITAL SIGNS: Pulse currently 51, blood pressure 98/50. HEENT: Normocephalic, atraumatic. NECK: No JVD or bruit. CONSULT REPORT [id number] JERONIMO CLARKE HEART: Irregularly irregular, bigeminal pattern. A II/ systolic ejection murmur. LUNGS: Good air excursion. ABDOMEN: Soft, nontender. EXTREMITIES: Pulses 2+. No edema. IMPRESSION: NSTEMI. Questionable type 1 versus type 2 with atrial flutter; however, continued symptomology within window for 6 months for restenosis, certainly restenosis a concern here. PLAN: For angiography, intervention based on the above. TRANSINT:[id number] Voice Confirmation ID: [id number] DOCUMENT ID: [id number] RODNEY MOONEY MD at 1604 CC: [id number] DICTATION DATE: 12/18/18 0844 [place] SEWER: 12/18/18 0945 ADM IN [facility] [address] [place] [address]
--- NOTE | 2018-12-18 17:20 | NUR ---
FAMILY AT BEDSIDE GIVEN UPDATE. NO NEW CHANGES WILL CONTINUE TO MONITOR
[2018-12-18 17:41] LABS: CREATINE KINASE 188 UL (21-232)
[2018-12-18 17:45] LABS: TROPONIN-I 1.513 ng/mL (0.000-0.060)
--- NOTE | 2018-12-18 19:00 | NUR ---
SHIFT ASSESSMENT COMPLETE. VITAL SIGNS STABLE. NO VISUAL CUES OF DISTRESS NOTED. WILL CONTINUE TO MONITOR.
--- NOTE | 2018-12-18 20:19 | NUR ---
LATE ENTRY... 12/18/[address] RECINOS AND ER NURSE CAME TO FLOOR TO SEE PATIENT. DR. RECINOS GAVE ORDERS FOR CTA OF ABDOMEN AND AORTA. DR. RECINOS CALLED SHORTLY AFTER TO INFORM ME THAT HE WAS PUTTING IN ORDERS FOR GLUCAGON AND GLUCAGON DRIP. GLUCAGON ADMINISTERED. WAITING ON PHARMACY FOR GLUCAGON DRIP. ASSISTED RADIOLOGY WITH TRANSPORT FOR CT. ARRIVED BACK TO UNIT WAS TOLD TO IMMEDIATELY TAKE PATIENT TO ICU. ARRIVED TO ICU SPOKE WITH LEANDRO B[place]MINGHAM. PATIENT PLACED IN ROOM. GAVE ONCOMING RN BEDSIDE REPORT.
--- NOTE | 2018-12-18 21:00 | NUR ---
VSS. WILL CONTINUE TO MONITOR.
--- NOTE | 2018-12-18 23:00 | NUR ---
VSS. WILL CONTINUE TO MONITOR.
[2018-12-19] VITALS (12 sets, daily range): BP systolic 130–166; BP diastolic 65–96; Ht 177.8 cm; Wt 82.6 kg
--- NOTE | 2018-12-19 01:00 | NUR ---
VSS. WILL CONTINUE TO MONITOR.
--- NOTE | 2018-12-19 03:00 | NUR ---
VSS. WILL CONTINUE TO MONITOR.
[2018-12-19 04:03] LABS: BASOPHILS 0.1 % (0-2); EOSINOPHILS 0.1 % (0-7); HEMATOCRIT 47.3 % (42.0-54.0); HEMOGLOBIN 15.6 g/dL (13.5-17.5); IMMATURE GRANULOCYTES 0.3 % (0-5); LYMPHOCYTES 23.5 % (15-50); MCH 31.1 pg (26.0-34.0); MCV 94.4 fL (80.0-100.0); MEAN PLATELET VOLUME 10.8 fL (7.4-10.4); MONOCYTES 8.7 % (2-11); NEUTROPHILS 67.3 % (40-80); PLATELET COUNT 239 10x3/uL (130-400); RBC 5.01 10x6/uL (4.20-6.10); RDW 14.7 % (11.5-14.5)
[2018-12-19 04:12] LABS: WBC 14.2 10x3/uL (4.8-10.8)
[2018-12-19 04:19] LABS: ANION GAP 16.3 mmol/L (8-16); CALCIUM 8.9 mg/dL (8.5-10.1); CREATININE - SERUM 1.5 mg/dL (0.6-1.3); MAGNESIUM - SERUM 2.3 mg/dL (1.8-2.4); PHOSPHOROUS 4.3 mg/dL (2.5-4.9); POTASSIUM - SERUM 4.3 mmol/L (3.5-5.1)
--- NOTE | 2018-12-19 05:00 | NUR ---
VSS. WILL CONTINUE TO MONITOR.
--- NOTE | 2018-12-19 05:43 | NUR ---
915ML OF URINE PER BLADDER SCAN. ASSISTED UP TO [facility]. VOIDED 360 ML URINE AT THIS TIME. WILL CONTINUE TO MONITOR.
--- NOTE | 2018-12-19 07:10 | NUR ---
PT SITTING ON SIDE OF BED. VSS AND WNL. ALERT AND ANSWERS ALL QUESTIONS. SHIFT ASSESSMENT PERFORMED. CALL LIGHT WITHIN REACH. WILL CONT TO FOLLOW POC
--- NOTE | 2018-12-19 09:00 | NUR ---
PT RESTING IN BED, FAMILY AT BEDSIDE, VSS AND WNL. DENIES ANY NEEDS AT THIS TIME, WILL CONT TO FOLLOW POC
--- NOTE | 2018-12-19 11:30 | NUR ---
HERE AND STATES HE IS GOING TO DISCHARGE PT HOME
--- NOTE | 2018-12-19 12:36 | NUR ---
DISCHARGE INSTRUCTIONS REVIEWED WITH PT AND ALL QUESTIONS ANSWERED. PIV REMOVED WITH CATHETER TIP INTACT. PT TAKEN TO FRONT OF HOSPITAL VIA WHEELCHAIR.
--- NOTE | 2018-12-19 13:40 | MORECARE ---
CASE MANAGEMENT DISCHARGE SUMMARY PATIENT: JERONIMO CLARKE UNIT: [id number] ADM DATE: 12/17/18 AGE: 78 : 40 SEX: M ROOM/BED: D.2308 AUTHOR: [employer] PHYSICIAN: REFERRING PHYSICIAN: GANESH TERRY MD DATE OF SERVICE: 12/19/18 Discharge Plan Patient Name: JERONIMO CLARKE Facility: [facility]:[place] : 1940 Planned Disposition: Anticipated Discharge Date: Discharge Date: 12/19/2018 Expected LOS: Initial Reviewer: [email or web address] Initial Review Date: 12/19/2018 Generated: 12/19/18 2:40 pm Patient Name: JERONIMO CLARKE Page [id number] at 1340 All edits/amendments must be made on the electronic document DICTATION DATE: 12/19/18 1340 BI ARCHITECT: ALYSSA 12/19/18 1340 RPT#: [id number] DC DATE:12/19/18 STATUS: DIS IN [facility] [address] [place] [address] END OF REPORT
--- NOTE | 2018-12-19 13:49 | MORECARE ---
CASE MANAGEMENT DISCHARGE SUMMARY PATIENT: JERONIMO CLARKE UNIT: [id number] ADM DATE: 12/17/18 AGE: 78 : 40 SEX: M ROOM/BED: D.2304 AUTHOR: JENI,DOC PHYSICIAN: REFERRING PHYSICIAN: GANESH TERRY MD DATE OF SERVICE: 12/19/18 Discharge Plan Patient Name: JERONIMO CLARKE Facility: [facility] : 1940 Planned Disposition: Anticipated Discharge Date: Discharge Date: 12/19/2018 Expected LOS: Initial Reviewer: [email or web address] Initial Review Date: 12/19/2018 Generated: 12/19/18 2:49 pm Comments DCP- Discharge Planning Updated by [email or web address]: Regi Kirk on 12/19/18 12:[address] Patient Name: JERONIMO CLARKE Admission Status: ER Accout number: [id number] Admission Date: 12-17-2018 : 1940 Admission Diagnosis: Attending: GANESH TERRY Current LOS: 2 Anticipated DC Date: Planned Disposition: Primary Insurance: [employer] PPO [facility] Discharge Planning Comments: CM met with patient at bedside after explaining CM role and obtaining verbal consent. Patient lives at home with his Uriel where he is independent with his care and plans to return there upon discharge. Patient feels this would be a safe discharge. CM discussed availability / needs of home health and medical equipment. Patient denies any discharge needs at this time. Patient states he will have his family drive him home upon discharge. CM will continue to follow and assist as needed with discharge planning / needs. Head Animal Trainer: Regi Kirk DCPIA - Discharge Planning Initial Assessment Updated by [email or web address]: Regi Kirk on 12/19/18 1:44 pm * Is the patient Alert and Oriented? Yes * How many steps to enter\exit or inside your home? * PCP [facility] * Pharmacy [facility] * Preadmission Environment Home with Family * ADLs Independent * Equipment None * List name and contact numbers for known caregivers / representatives who currently or will assist patient after discharge: URIEL KRABERNICE - [facility] - [phone] [place] [phone] * Verbal permission to speak to the caregivers and representatives has been obtained from the patient. Yes * Community resources currently utilized None * Additional services required to return to the preadmission environment? No * Can the patient safely return to the preadmission environment? Yes * Has this patient been hospitalized within the prior 30 days at any hospital? No Last DP export: 12/19/18 12:40 Patient Name: JERONIMO CLARKE Page [id number] at 1349 All edits/amendments must be made on the electronic document DICTATION DATE: 12/19/181348 DISH PERSON: ALYSSA 12/19/18 134 RPT#: [id number] DC DATE:12/19/18 STATUS: DIS IN [facility] [address] [place] [address] END OF REPORT
--- NOTE | 2018-12-20 11:45 | OP ---
PATIENT NAME: JERONIMO CLARKE MEDICAL RECORD: [id number] :[birth year] LOCATION:D[facility] D.2308 ADMISSION DATE:12/17/18 SURGEON: RODNEY MOONEY MD DATE OF OPERATION: 12/18/2018 PROCEDURES: Left heart catheterization, selective coronary angiography, right femoral artery approach. CATHETERS: A 5-Danish sheath, 5/4 left and right Nile, 5/4 pig. Procedure was well tolerated. The patient returned to the ortiz. Sheath removed. ExoSeal device placed. FINDINGS: Left ventriculography in 30-degree BLANKENSHIP view shows global hypokinesis. Overall reduced EF 30% to 35%. CORONARY ANATOMY: LEFT MAIN: Left main basically fills only a ramus branch. LAD AND CIRCUMFLEX: Totally occluded. RIGHT CORONARY ARTERY: Totally occluded in its proximal portion. BYPASS GRAFTS: VAZUQEZ to LAD is widely patent to the LAD. There is very distal disease at the apex as described previously. Circumflex graft is widely patent throughout its course with no evidence of post-anastomotic stenosis. Saphenous vein graft to right shows a widely patent stent and no evidence of restenosis. IMPRESSION: Cardiomyopathy, patent grafts, patent stent. TRANSINT:[id number] Voice Confirmation ID: [id number] DOCUMENT ID: [id number] RODNEY MOONEY MD at 1145 CC: [id number] DICTATION DATE: 12/18/18 1547 INSPECTOR PRECISION ASSEMBLY: 12/18/18 2351 DIS IN 12/19/18 [place] [id number] [place] [id number]
== END 2018-12-19 12:36 | DRG 280 ==
LOC: D.ER 21:52 → D.M2 23:10 → D.ICU 23:10
PROVIDERS: Emergency Medicine; Internal Medicine Interventional Cardiology; ADMIT Internal Medicine Nephrology; ATTEND Internal Medicine Nephrology
PROC: B2151ZZ Fluoroscopy of Left Heart using Low Osmolar Contrast (ICD-10-PCS; 2018-12-18)
PROC: 4A023N7 Measurement of Cardiac Sampling and Pressure, Left Heart, Percutaneous Approach (ICD-10-PCS; 2018-12-18)
PROC: B2131ZZ Fluoroscopy of Multiple Coronary Artery Bypass Grafts using Low Osmolar Contrast (ICD-10-PCS; principal; 2018-12-18 14:40)
DX: I48.92 Unspecified atrial flutter (principal); I21.4 Non-ST elevation (NSTEMI) myocardial infarction; I50.31 Acute diastolic (congestive) heart failure; I42.9 Cardiomyopathy, unspecified; E78.5 Hyperlipidemia, unspecified; I10 Essential (primary) hypertension; I11.0 Hypertensive heart disease with heart failure; I25.10 Atherosclerotic heart disease of native coronary artery without angina pectoris; L30.9 Dermatitis, unspecified; M19.90 Unspecified osteoarthritis, unspecified site; E02 Subclinical iodine-deficiency hypothyroidism

== ENCOUNTER 2019-03-04 23:51 | Observation (INO) | payer MEDICARE ==
[~2019-03-04] VITALS: Ht 177.8 cm; Wt 83.9 kg
--- NOTE | ~2019-03-04 | HEMODYNAMI ---
PATIENT:JERONIMO CLARKE MEDICAL RECORD: [id number] : 40 [facility]# [id number] ADMISSION DATE: 03/05/19 Generatedon:03/05/201916:11 Patient name: JERONIMO CLARKE Patient #: [id number] SSN : [id number] : 1940 Date of study: 03/05/2019 Page: Of Hemodynamic Procedure Report Patient Data Patient Demographics Procedure consent was obtained First Name: JERONIMO Gender: Male Last Name: TRICIA : 1940 [facility] Initial: E Age: 78 year(s) Patient #: [id number] Race: SSN: [id number] Additional ID: [id number] Contact details Address: [address] [place] [address] State: [place] City: [facility] [place] Zip code: [address] Past Medical History History of disease Date Diagnosis Comments CAD Allergies Allergen Reaction Date Comments Reported Penicillins 12/17/2015 Statins 12/17/2015 Other allergy 01/20/2016 CIPROFLOXACIN, COREG, FOSAMAX, LISINOPRIL, MEXITIL, PLAVIX, QUINIDINE, RYTHMOL Other allergy 07/14/2018 PRAVASTATIN, QUININDINE, ALENDNONATE SODIUM, CARVEDILOL, CIPNOFLOXACIN, PCN, LISINOPRIL, MEXILETINE, PROPAFENONE, [id number] REDUCTASE INHINITORS, CLOPIDOGREL. Other allergy 03/05/2019 FOSAMAX,COREG, CIPROFLOACIN, PCN, STATINS, PLAVIX, LISINOPRIL, MEXITIL, PRAVASTATIN, RYHTMOL, QUINIDINE Admission Admission Data Admission Date: 03/05/2019 Admission Time: 1:14 Arrival Date: 03/05/2019 Arrival Time: 0:00 Admit Source: Emergency Insurance Payor: Private department health insurance Room #: D.2126 [facility] #: [id number] Height (in.): 70 BSA: 2.02 (m2) Height (cm.): 177.8 BMI: 26.57 (kg/m2) Weight (lbs.): 185.19 Weight (kg.): 84 Lab Results Lab Result Date: 03/05/2019 Lab Result Time: 0:00 Biochemistry Name Units Result Min Max BUN mg/dl 16 --(---*)-- 7 18 Creatinine mg/dl 1.1 --(--*-)-- 0.6 1.3 eGFR ml/min 69 *-(----)-- 90 120 NONAFRICAN CBC Name Units Result Min Max Hematocrit % 42.5 --(*---)-- 42 54 Hemoglobin g/dl 14.2 --(*---)-- 13.5 17.5 Procedure Procedure Types Cath Procedure Diagnostic Procedure LHC LHC w/Coronaries w/Grafts Sedation Charges Moderate Sedation up to 30 minutes Procedure Description Procedure Date Procedure Date: 03/05/2019 Procedure Start Time: 15:39 Procedure End Time: 16:09 Procedure Staff Name Function Wayne Fonseca MD Performing Physician Shira Guthrie RT Monitor Gilda Stinson RT Monitor Yaritza Hunter RT Scrub Manny Pena RN Nurse Indication CABG Procedure Data Cath Procedure Fluoroscopy Diagnostic fluoroscopy Total fluoroscopy Time: 4.5 time: 4.5 min min Diagnostic fluoroscopy Total fluoroscopy dose: 603 dose: 603 mGy mGy Contrast Material Contrast Material Type Amount (ml) Isovue 300 98 Entry Location Entry Primary Successful Side Size Upsize Upsize Entry Closure Succes sful Closure Location (Fr) 1 (Fr) 2 (Fr) Remarks Device Remarks Femoral Right 5 Fr Exoseal artery Estimated blood loss: 5 ml Diagnostic catheters Device Type Used For End Catheter Placement MULTIPACK JL 4.0 5Fr Left Coronary catheter Angiography MULTIPACK 3DRC 5Fr Right Coronary catheter Angiography DIAGNOSTIC IM 5Fr Procedure catheter ([id number]) MULTIPACK Pigtail 5 Fr LV Angiography catheter Procedure Complications No complications Procedure Medications Medication Administration Route Dosage 0.9% NaCl I.V. 100 ml/hr Oxygen etCO2 Nasal cannula 2 l/min Heparin Flush Bag added to field 2 bags (1000units/500ml NS) Lidocaine 2% added to field 20 Versed I.V. 1 mg Fentanyl I.V. 50 mcg Versed I.V. 1 mg Fentanyl I.V. 50 mcg Hemodynamics Rest BSA: 2.02 (m2) HGB: 14.2 (g/dl) O2 Consumption: Estimated: 242.05 (ml/min) O2 Co nsumption indexed: Estimated:119.83 (ml/min/m) Heart Rate: 84 (bpm) Pressure Samples Time Site Value (mmHg) Purpose Heart Use Rate(bpm) 15:49 LV 120/5,30 Snapshot 77 15:51 AO 125/71(94) Pullback 78 15:51 LV 116/2,22 Pullback 78 Gradients Valve Time Site 1 Site 2 Mean SEP/DFP Peak To Heart Use (mmHg) (sec/min) Peak Rate (mmHg) (bpm) Aortic 15:51 LV AO 0 6 0 78 116/2,22 125/71(94) Calculations Valve P-P Mean Valve Index Valve Source Name Gradient Area Flow (cm2) Aortic 0 0 0 0 Snapshots Pre Cath Intra NCS Post Cath Vital Signs Time Heart Resp SPO2 etCO2 NIBP (mmHg) Rhythm Pain Sedation Rate (ipm) (%) (mmHg) Status Level (bpm) 15:14:52 83 29 97 0 148/84(113) NSR 0 (11) 10(A) , No pain 15:19:06 84 13 99 0.7 131/77(111) NSR 0 (11) 10(A) , No pain 15:23:16 86 13 92 0 134/80(103) NSR 0 (11) 10(A) , No pain 15:27:26 86 12 94 0 140/84(114) NSR 0 (11) 10(A) , No pain 15:31:40 86 12 93 0 129/79(100) NSR 0 (11) 10(A) , No pain 15:35:50 86 13 91 0 128/74(99) NSR 0 (11) 10(A) , No pain 15:40:00 81 24 96 9.7 129/81(96) NSR 0 (11) 10(A) , No pain 15:44:14 72 11 95 0 128/69(89) NSR 0 (11) 9(A) , No pain 15:48:25 76 24 86 29.8 129/70(101) NSR 0 (11) 9(A) , No pain 15:52:38 77 13 96 0 119/73(91) NSR 0 (11) 9(A) , No pain 15:56:45 68 12 94 0 119/75(85) NSR 0 (11) 9(A) , No pain 16:00:53 74 12 91 0 119/75(84) NSR 0 (11) 9(A) , No pain 16:05:01 75 19 92 0 122/73(102) NSR 0 (11) 9(A) , No pain 16:09:11 77 18 96 24.6 121/70(94) NSR 0 (11) 9(A) , No pain Medications Time Medication Route Dose Verified Delivered Reason Notes Eff ectiveness by by 15:17:40 0.9% NaCl I.V. 100 Manny Manny Per ml/hr Jean Pena physician RN RN 15:17:49 Oxygen etCO2 2 Manny Manny for low 02 Nasal l/min Lorigan Lorigan sats cannula RN RN 15:17:59 Heparin Flush added 2 Manny Manny used for Bag to bags Lorigan Lorigan procedure (1000units/500ml field RN RN NS) 15:18:10 Lidocaine 2% added 20ml Manny Manny for local to vial Lorigan Lorigan anesthetic field RN RN 15:35:44 Versed I.V. 1 mg Manny Manny for Lorigan Lorigan sedation RN RN 15:35:52 Fentanyl I.V. 50 Manny Manny for mcg Lorigan Lorigan sedation RN RN 15:38:58 Versed I.V. 1 mg Manny Manny for Lorigan Lorigan sedation RN RN 15:39:03 Fentanyl I.V. 50 Manny Manny for mcg Lorigan Lorigan sedation RN representative phlebotomy services Log Time Note 14:40:55 Informed consent obtained and on chart 14:41:19 Procedure Status Urgent Heart Cath (IP). 14:41:20 Time tracking: Regular hours (M-F 7:00 - 5:00) 14:41:23 Plan of Care:Hemodynamics will remain stable., Cardiac rhythm will remain stable., Comfort level will be maintained., Respiratory function will remain adequate., Patient/ family verbilizes understanding of procedure., Procedure tolerated without complication., Recovers from procedure without complications.. 14:41:29 H&P Date Dictated: 03/05/2019 Within 30 days and on chart.. 14:43:06 Patient allergic to Other allergyFOSAMAX,COREG, CIPROFLOACIN, PCN, STATINS, PLAVIX, LISINOPRIL, MEXITIL, PRAVASTATIN, RYHTMOL, QUINIDINE 14:43:43 Lab Result : BUN 16 mg/dl 14:43:43 Lab Result : eGFR NONAFRICAN 69 ml/min 14:43:43 Lab Result : Creatinine 1.1 mg/dl 14:43:43 Lab Result : Hemoglobin 14.2 g/dl 14:43:43 Lab Result : Hematocrit 42.5 % 14:43:54 Patient Weight : 185.19 lbs 14:43:56 Patient Height : 70 inches 14:44:15 Indication : CABG 14:46:17 Procedure type changed to Cath procedure, Diagnostic procedure, LHC, LHC w/Coronaries w/Grafts, Sedation Charges, Moderate Sedation up to 30 minutes 14:56:40 Manny Pena RN sent for patient. Start room use. 14:59:54 Arrival Date: 03/05/2019 12:00:00 AM 15:01:06 Insurance Payor : Private health insurance 15:01:07 Admit Source: Emergency department 15:07:02 Patient received from Med II to CCL 1 Alert and oriented. Tansferred to table in Supine position. 15:07:05 Warm blankets applied, and elfego hugger turned on for patient comfort. 15:07:06 Correct patient and procedure confirmed by team. 15:07:07 ECG and BP/O2 sat monitors applied to patient. 15:11:09 Pre-procedure instructions explained to patient. 15:11:09 Pre-op teaching completed and patient verbalized understanding. 15:11:11 Family in patients room. 15:11:12 Patient NPO since Midnight. 15:11:15 Is the patient allergic to Iodine/contrast media? No. 15:11:16 Is patient on blood thinner?No 15:11:18 Patient diabetic? No. 15:11:20 Previous problem with sedation/anesthesia? No ? 15:11:22 Snore? Yes 15:11:22 Sleep apnea? No 15:11:23 Deviated septum? No 15:11:24 Opens mouth fully? Yes 15:11:25 Sticks out tongue? Yes 15:11:27 Airway obstruction? No ? 15:11:29 Dentures? No ? 15:11:32 Pre procedure: right dorsailis pedis pulse 1+ Palpable, but thready & weak; easily obliterated 15:11:51 IV patent on arrival in right antecubital with 0.9% NaCl at [facility]. 15:11:58 Lab results completed and on chart. 15:12:03 Stress Test: no; N/A ? 15:13:36 Risk of Mortality: .1 15:13:38 Risk of blood transfusion: .1 15:13:41 Risk of SAIRA: .6 15:13:44 Right groin area was prepped with chlora-prep and draped in sterile fashion 15:13:45 Alarms reviewed by R. N. 15:13:45 Sharps counted by scrub and verified by R.N. 15:13:48 Vital chart was started 15:13:50 Baseline sample Acquired. 15:13:53 Rhythm: sinus rhythm 15:13:55 Full Disclosure recording started 15:14:04 Use device set Femoral Dx 15:14:05 ACIST Syringe (38010) opened to sterile field. 15:14:05 Bag Decanter (2002S) opened to sterile field. 15:14:06 ACIST Hand Control (29678) opened to sterile field. 15:14:07 ACIST Manifold (49488) opened to sterile field. 15:14:08 Tegaderm 4 x 4 (1626W) opened to sterile field. 15:14:10 Medline Cath Pack ([id number]) opened to sterile field. 15:14:17 DIAGNOSTIC Multipack 5Fr catheter set (ZW0562) opened to sterile field. 15:14:20 SHEATH 5FR Madison (UQM568) opened to sterile field. 15:14:21 EMERALD Guide Wire (516-602) opened to sterile field. 15:17:40 0.9% NaCl 100 ml/hr I.V. was administered by Manny Pena RN; Per physician; Verbal order read back and verified. 15:17:49 Oxygen 2 l/min etCO2 Nasal cannula was administered by Manny Pena RN; for low 02 sats; Verbal order read back and verified. 15:17:59 Heparin Flush Bag (1000units/500ml NS) 2 bags added to field was administered by Manny Pena RN; used for procedure; Verbal order read back and verified. 15:18:10 Lidocaine 2% 20ml vial added to field was administered by Manny Pena RN; for local anesthetic; Verbal order read back and verified. 15:27:56 Zero performed for pressure channel P1 15:34:48 Physician arrived 15:34:50 --------ALL STOP TIME OUT------ 15:34:56 Final Timeout: patient, procedure, and site verified with staff and physician. All members of the team are in agreement. 15:35:02 Right groin site verified by team. 15:35:13 Fire Safety Assessment: A--An alcohol-based skin anteseptic being used preoperatively., C--Open oxygen or nitrous oxide is being used., D--An ESU, laser, or fiber-optic light is being used. 15:35:19 Physical assessment completed. ASA score P 2 - A patient with mild systemic disease as per Wayne Fonseca MD. 15:35:25 2) 60-89 Mildly reduced kidney function, and other findings (as for stage 1) point to kidney disease. 15:35:29 Maximum allowable contrast dose (3.7 X eGFR X 0.75)191 ml. 15:35:36 Sedation plan: IV Moderate Sedation Medication:Versed, Fentanyl 15:35:44 Versed 1 mg I.V. was administered by Manny ePna RN; for sedation; Verbal order read back and verified. 15:35:52 Fentanyl 50 mcg I.V. was administered by Manny Pena RN; for sedation; Verbal order read back and verified. 15:37:45 Procedure started. 15:38:58 Versed 1 mg I.V. was administered by Manny Pena RN; for sedation; Verbal order read back and verified. 15:39:03 Fentanyl 50 mcg I.V. was administered by Manny Pena RN; for sedation; Verbal order read back and verified. 15:39:09 Local anesthetic to right femoral artery with Lidocaine 2% by Wayne Fonseca MD.INITIAL ACCESS ONLY 15:39:41 A 5 Fr sheath was inserted into the Right Femoral artery 15:39:56 A MULTIPACK JL 4.0 5Fr catheter was advanced over the wire and used for Left Coronary Angiography. 15:40:18 Injector settings: Ml/sec: 3, Volume: 6, 15:40:36 LCA angiography performed. 15:41:04 Catheter removed. 15:41:29 A MULTIPACK 3DRC 5Fr catheter was advanced over the wire and used for Right Coronary Angiography. 15:41:46 Injector settings: Ml/sec: 3, Volume: 6, 15:43:39 SVG to RCA angiography performed. 15:44:04 Injector settings: Ml/sec: 3, Volume: 6, 15:44:27 SVG to Circ angiography performed. 15:44:47 Injector settings: Ml/sec: 3, Volume: 6, 15:45:41 Catheter removed. 15:46:50 A DIAGNOSTIC IM 5Fr catheter ([id number]) was advanced over the wire and used for Procedure. 15:47:47 VAZQUEZ to LAD angiography performed. 15:48:04 Injector settings: Ml/sec: 3, Volume: 6, 15:48:55 Catheter removed. 15:49:15 A MULTIPACK Pigtail 5 Fr catheter was advanced over the wire and used for LV Angiography. 15:49:30 Injector settings: Ml/sec: 5, Volume: 15, 15:50:05 LV hemodynamics recorded. 15:50:28 EF : 55 % 15:51:08 LV gram done using BLANKENSHIP 16:03:00 Catheter removed. 16:03:05 EXOSEAL 5Fr (EX500) opened to sterile field. 16:03:51 Sheath removed intact; hemostasis achieved with Exoseal to the Right Femoral artery. 16:03:56 Procedure ended.(Physican Out) 16:04:56 Contrast amount:Isovue 300 98ml. 16:05:00 Maximum allowable dose exceeded? No. 16:05:16 Fluoroscopy time 04.50 minutes. 16:05:27 Flurop Dose total: 603 16:05:27 Fluoroscopy dose: 603 mGy 16:05:47 Dose Area Product 69846 mGy/cm. 16:05:50 Sharps counted by scrub and verified by R.N. 16:05:53 Insertion/operative site no bleeding no hematoma. 16:06:00 Post-op/insertion site Right Femoral artery dressed using a 4 x 4 and Tegaderm. 16:06:07 Post right femoral artery:stable 16:06:14 Post Procedure Pulses reassessed and unchanged 16:06:19 Post-procedure physical assessment completed. ASA score P 2 - A patient with mild systemic disease as per Wayne Fonseca MD. 16:06:46 Post procedure rhythm: unchanged. 16:06:56 Estimated blood loss: 5 ml 16:06:58 Post procedure instruction explained to patient.Patient verbalizes understanding. 16:06:59 Patient needs reinforcement of post procedure teaching. 16:07:57 Procedure and supply charges have been captured, reviewed, submitted and are correct. 16:08:35 Procedure Complication : No complications 16:08:39 Vital chart was stopped 16:08:50 [facility] Findings: mild to moderate CAD (<70%) 16:08:54 Operative report dictated upon procedure completion. 16:08:55 See physician's report for complete and final results. 16:08:58 Report given to [facility]. 16:09:03 Patient transfered to [facility] with Bed. 16:09:13 Procedure ended. 16:09:13 Full Disclosure recording stopped 16:09:17 End room use (Document Last) Device Usage Item Name Manufacture Quantity Catalog Hospital Part Current Minimal L ot# / Number Charge Number Stock Stock Serial# Code ACIST Acist 1 99174 727607 822900 781803 20 Syringe Medical (60897) Systems Inc Bag Microtek 1 2001S 784086 02526 216436 5 Decanter Medical Inc. (2001S) ACIST Hand Acist 1 91322 592913 381138 746777 5 Control Medical (15546) Systems Inc ACIST Acist 1 38232 287120 569272 431739 5 Manifold Medical (74211) Systems Inc Tegaderm 4 3M 1 1626W 089598 291000 811427 5 x 4 (1626W) Medline Medline 1 [id number] 842262 85569 727185 5 Cath Pack ([id number]) DIAGNOSTIC Cardinal 1 RX8786 204928 64662 869603 30 Multipack Health 5Fr catheter set (JF6587) SHEATH 5FR Terumo 1 ONQ218 531773 900284 510079 5 Madison (JWY094) EMERALD Cardinal 1 502-455 634451 704217 364648 5 Guide Wire CardiaLen (502-131) MULTIPACK Cardinal 1 893188 5 JL 4.0 5Fr Health catheter MULTIPACK Cardinal 1 504382 5 3DRC 5Fr Health catheter DIAGNOSTIC Cardinal 1 [id number] 785073 082450 179142 5 IM 5Fr Health catheter ([id number]) MULTIPACK Cardinal 1 031851 5 Pigtail 5 Health Fr catheter EXOSEAL 5Fr Cardinal 1 EX500 523230 453269 111712 10 (EX500) Health Signature Audit [place] Stage Time Signature Unsigned Intra-Procedure 03/05/2019 Shira 4:10:18 PM Jerir RT(R) (CV) Intra-Procedure 03/05/2019 Manny 4:10:54 PM Jean [place] Intra-Procedure 03/05/2019 Wayne Fonseca MD 4:11:25 PM [facility] [address] [place] [address]
[~2019-03-04 23:51] MED LIST changes: +ASPIRIN325 MG PO
[2019-03-04] MEDS ORDERED: REPATHA SY140 MG/1 M SC (23:57)
[2019-03-05] VITALS (7 sets, daily range): BP systolic 114–140; BP diastolic 51–85; Ht 177.8 cm; Wt 83.9 kg
[2019-03-05 00:46] LABS: BASOPHILS 0.7 % (0-2); EOSINOPHILS 4.4 % (0-7); HEMATOCRIT 43.9 % (42.0-54.0); HEMOGLOBIN 14.7 g/dL (13.5-17.5); IMMATURE GRANULOCYTES 0.2 % (0-5); LYMPHOCYTES 48.7 % (15-50); MCH 30.6 pg (26.0-34.0); MCHC 33.5 g/dL (31.0-37.0); MCV 91.3 fL (80.0-100.0); MEAN PLATELET VOLUME 10.6 fL (7.4-10.4); MONOCYTES 5.9 % (2-11); NEUTROPHILS 40.1 % (40-80); RBC 4.81 10x6/uL (4.20-6.10); RDW 14.1 % (11.5-14.5); WBC 6.1 10x3/uL (4.8-10.8)
[2019-03-05 00:47] LABS: PLATELET COUNT 176 10x3/uL (130-400)
[2019-03-05 00:53] LABS: CALC OSMOLALITY 278 mosm/kg (275-300); CALCIUM 8.6 mg/dL (8.5-10.1); CARBON DIOXIDE 28.6 mmol/L (21.0-32.0); CHLORIDE - SERUM 104 mmol/L (98-107); CREATININE - SERUM 1.2 mg/dL (0.6-1.3); GLUCOSE 117 mg/dL (74-106); POTASSIUM - SERUM 3.9 mmol/L (3.5-5.1); SODIUM 138 mmol/L (136-145); UREA NITROGEN 18 mg/dL (7-18); eGFR NON AFRICAN AMERICAN 62 mL/min (90-120)
[2019-03-05 00:57] LABS: APTT 26.8 SECONDS (22.8-39.4); INR 1.05 (0.85-1.17); PROTIME 13.6 SECONDS (11.6-15.0)
[2019-03-05 01:14] LABS: ALBUMIN 3.7 g/dL (3.4-5.0); ALKALINE PHOSPHATASE 60 U/L (30-120); ALT (SGPT) 41 U/L (10-68); BILIRUBIN - TOTAL 0.32 mg/dL (0.2-1.3); CREATINE KINASE 135 UL (21-232); MAGNESIUM - SERUM 2.2 mg/dL (1.8-2.4); PROTEIN - SERUM 7.1 g/dL (6.4-8.2)
[2019-03-05 01:15] LABS: TROPONIN-I 1.447 ng/mL (0.000-0.060)
--- NOTE | 2019-03-05 03:20 | NUR ---
RECEIVED FROM ER, PT IS A&O, HISTORY AND MED COMPLETE, PLACED ON TELEMTRY, BED IS LOW, SRX2, CALL LIGHT IN REACH, WILL CONTINUE PLAN OF CARE
[2019-03-05 06:56] LABS: BASOPHILS 0.1 % (0-2); EOSINOPHILS 0.7 % (0-7); HEMATOCRIT 42.5 % (42.0-54.0); HEMOGLOBIN 14.2 g/dL (13.5-17.5); IMMATURE GRANULOCYTES 0.1 % (0-5); MCH 30.6 pg (26.0-34.0); MCHC 33.4 g/dL (31.0-37.0); MCV 91.6 fL (80.0-100.0); MEAN PLATELET VOLUME 10.6 fL (7.4-10.4); MONOCYTES 7.2 % (2-11); NEUTROPHILS 58.9 % (40-80); PLATELET COUNT 178 10x3/uL (130-400); RBC 4.64 10x6/uL (4.20-6.10); RDW 14.2 % (11.5-14.5); WBC 7.1 10x3/uL (4.8-10.8)
[2019-03-05 07:25] LABS: CALC OSMOLALITY 284 mosm/kg (275-300); CALCIUM 8.5 mg/dL (8.5-10.1); CHLORIDE - SERUM 107 mmol/L (98-107); CKMB 60.2 U/L (0.0-3.6); CREATINE KINASE 321 UL (21-232); CREATININE - SERUM 1.1 mg/dL (0.6-1.3); GLUCOSE 108 mg/dL (74-106); MAGNESIUM - SERUM 2.3 mg/dL (1.8-2.4); PHOSPHOROUS 3.9 mg/dL (2.5-4.9); POTASSIUM - SERUM 4.3 mmol/L (3.5-5.1); SODIUM 142 mmol/L (136-145); UREA NITROGEN 16 mg/dL (7-18); eGFR NON AFRICAN AMERICAN 69 mL/min (90-120)
[2019-03-05 07:26] LABS: TROPONIN-I 4.247 ng/mL (0.000-0.060)
[2019-03-05 08:39] LABS: CHOL - HDL RATIO 1.9 ratio (2.3-4.9); LDL-HDL RATIO 0.3 ratio (1.5-3.5)
--- NOTE | 2019-03-05 09:45 | NUR ---
ASSESSMENT DONE. AT SIDE.DENIES NEEDS
--- NOTE | 2019-03-05 10:25 | NUR ---
I have reviewed this patient and I concur with the Shift Assessment completed by the Licensed Practical Nurse today this shift.
[2019-03-05 13:26] LABS: CKMB 127.5 U/L (0.0-3.6)
[2019-03-05 13:28] LABS: CREATINE KINASE 647 UL (21-232); TROPONIN-I 14.919 ng/mL (0.000-0.060)
--- NOTE | 2019-03-05 15:02 | NUR ---
TO TURN SEWER PER BED
--- NOTE | 2019-03-05 16:30 | NUR ---
RETURN FROM MAMMOGRAPHY SUPERVISOR PER BED. RT ALYSE ARAIZA C/D/I, PULSE PALP
[2019-03-05 19:21] LABS: CKMB 80.4 U/L (0.0-3.6); CREATINE KINASE 682 UL (21-232)
[2019-03-05 19:23] LABS: TROPONIN-I 16.319 ng/mL (0.000-0.060)
--- NOTE | 2019-03-05 19:38 | NUR ---
ASSESSMENT COMPLETE, PT A&O. RERSPERATIONS EVEN ON RA. IV TO RIGHT AC SL, SITE CLEAN AND DRY. DRSG TO RIGHT GROIN C/D/I. NO SWELING, BLEEDING OR HEMATOMA NOTED. PT DENIES PAIN OR NEEDS, BED LOW, CL IN REACH.
--- NOTE | 2019-03-05 21:17 | NUR ---
HS MEDS GIVEN WITH FRESH ICE WATER. PT DENIES PAIN OR NEEDS, BED LOW, CL IN REACH.
[2019-03-06 00:21] VITALS: BP 132/78
--- NOTE | 2019-03-06 01:15 | NUR ---
I have reviewed this patient and I concur with the Shift Assessment completed by the Licensed Practical Nurse today this shift.
--- NOTE | 2019-03-06 02:01 | NUR ---
RESTING WITH EYES CLOSED, RESPERATIONS EVEN, NO S/S DISTRESS NOTED.
[2019-03-06 04:00] VITALS: BP 132/67
[2019-03-06 06:15] LABS: BASOPHILS 0.3 % (0-2); EOSINOPHILS 3.8 % (0-7); HEMATOCRIT 44.5 % (42.0-54.0); HEMOGLOBIN 14.7 g/dL (13.5-17.5); IMMATURE GRANULOCYTES 0.2 % (0-5); LYMPHOCYTES 35.4 % (15-50); MCH 30.4 pg (26.0-34.0); MCV 92.1 fL (80.0-100.0); MEAN PLATELET VOLUME 10.6 fL (7.4-10.4); MONOCYTES 10.1 % (2-11); NEUTROPHILS 50.2 % (40-80); PLATELET COUNT 169 10x3/uL (130-400); RBC 4.83 10x6/uL (4.20-6.10); RDW 14.3 % (11.5-14.5); WBC 6.6 10x3/uL (4.8-10.8)
[2019-03-06 06:32] LABS: ANION GAP 11.1 mmol/L (8-16); CALCIUM 8.2 mg/dL (8.5-10.1); CREATININE - SERUM 1.2 mg/dL (0.6-1.3); POTASSIUM - SERUM 4.1 mmol/L (3.5-5.1)
--- NOTE | 2019-03-06 07:23 | NUR ---
ASSESSMENT DONE. DENIES NEEDS
[2019-03-06 08:00] VITALS: BP 128/67
--- NOTE | 2019-03-06 09:38 | NUR ---
I have reviewed this patient and I concur with the Shift Assessment completed by the Licensed Practical Nurse today this shift.
[2019-03-06 12:00] VITALS: BP 122/75
--- NOTE | 2019-03-06 12:14 | MORECARE ---
CASE MANAGEMENT DISCHARGE SUMMARY PATIENT: JERONIMO CLARKE UNIT: [id number] ADM DATE: 03/05/19 AGE: 78 : 40 SEX: M ROOM/BED: D.9767 AUTHOR: JENIDOC PHYSICIAN: REFERRING PHYSICIAN: GANESH TERRY MD DATE OF SERVICE: 03/06/19 Discharge Plan Patient Name: JERONIMO CLARKE Facility: [facility]:[place] : 1940 Planned Disposition: Anticipated Discharge Date: Discharge Date: Expected LOS: Initial Reviewer: [email or web address] Initial Review Date: 03/05/2019 Generated: 03/06/19 1:13 pm Comments DCP- Discharge Planning Updated by [id number]: Yoana Hummel on 03/06/19 11:[address] Patient Name: JERONIMO CLARKE Admission Status: ER Accout number: [id number] Admission Date: 03-05-2019 : 1940 Admission Diagnosis: Attending: GANESH TERRY Current LOS: 1 Anticipated DC Date: Planned Disposition: Primary Insurance: HU[employer]NA CHOICE O [facility] Discharge Planning Comments: CM met with patient to complete initial dc planning assessment. CM educated patient on the CM role and verbal consent given by patient to complete assessment. CM verified patient's address, phone number, and emergency contact phone numbers. Patient lives at home with his (Gloria). At discharge patient plans to return home and feels this is a safe discharge. CM discussed availability of home health, rehab services, and medical equipment. Patient denied known discharge needs at this time. PETERS delivered, explained, signed by the patient, and placed in the chart. Signed form also left with patient. Transportation provider at discharge will be Gloria. CM will continue to follow and will assist as needed with dc plans/needs. Project Construction Assistant Manager: Yoana Hummel MSN,RN CM DCPIA - Discharge Planning Initial Assessment Updated by [id number]: Yoana Hummel on 03/06/19 12:07 pm * Is the patient Alert and Oriented? Yes * How many steps to enter\exit or inside your home? 0/0 * PCP Leeannadasana * [facility]acy [facility] * Preadmission Environment Home with Family * ADLs Independent * Equipment None * List name and contact numbers for known caregivers / representatives who currently or will assist patient after discharge: Gloria [phone] * Verbal permission to speak to the caregivers and representatives has been obtained from the patient. Yes * Community resources currently utilized None * Additional services required to return to the preadmission environment? No * Can the patient safely return to the preadmission environment? Yes * Has this patient been hospitalized within the prior 30 days at any hospital? No Coverage Notice Reviewer: [id number] Shelbie Hummel Notice Issued Date-Time: 03/06/2019 10:10 Notice Type: Medicare Outpatient Observation Notice Notice Delivered To: Patient Relationship to Patient: Phytopathology Teacher Name: Delivery Method: HAND - Hand Delivered Alexa Days: Prior Verbal Notification: Recipient Understood Notice: Yes Recipient Signature: Yes Med Rec Note Co-signed by Attending: Coverage Notice Comment: PETERS provided to patient. Pt verbalized understanding. Provided copy and placed on chart. Patient Name: JERONIMO CLARKE Page [phone] at 1214 All edits/amendments must be made on the electronic document DICTATION DATE: 03/06/19 1213 NURSE AIDE: ALYSSA 03/06/19 1213 RPT#: [id number] DC DATE: STATUS: ADM IN [facility] [address] [place] [address] END OF REPORT
[2019-03-06] MEDS ORDERED: RANEXA500 MG PO (16:53)
--- NOTE | 2019-03-06 17:11 | NUR ---
DC GIVEN TO PT
--- NOTE | 2019-03-06 17:12 | NUR ---
DC HOME PER PERSONAL CAR
--- NOTE | 2019-03-07 08:39 | MORECARE ---
CASE MANAGEMENT DISCHARGE SUMMARY PATIENT: JERONIMO CLARKE UNIT: [id number] ADM DATE: 03/05/19 AGE: 78 : 40 SEX: M ROOM/BED: D.3834 AUTHOR: JENI,DOC PHYSICIAN: REFERRING PHYSICIAN: GANESH TERRY MD DATE OF SERVICE: 03/07/19 Discharge Plan Patient Name: JERONIMO CLARKE Facility: [facility]:[place] : 1940 Planned Disposition: Home Anticipated Discharge Date: 03/06/19 Discharge Date: 03/06/2019 Expected LOS: 1 Initial Reviewer: [email or web address] Initial Review Date: 03/05/2019 Generated: 03/07/19 9:39 am DCP- Discharge Planning Updated by [email or web address]: Yoana Hummel on 03/06/19 11:[address] Patient Name: JERONIMO CLARKE Admission Status: ER Accout number: [id number] Admission Date: 03-05-2019 : 1940 Admission Diagnosis: Attending: GANESH TERRY Current LOS: 1 Anticipated DC Date: Planned Disposition: Primary Insurance: HUMANA CHOICE O [facility] Discharge Planning Comments: CM met with patient to complete initial dc planning assessment. CM educated patient on the CM role and verbal consent given by patient to complete assessment. CM verified patient's address, phone number, and emergency contact phone numbers. Patient lives at home with his (Gloria). At discharge patient plans to return home and feels this is a safe discharge. CM discussed availability of home health, rehab services, and medical equipment. Patient denied known discharge needs at this time. PETERS delivered, explained, signed by the patient, and placed in the chart. Signed form also left with patient. Transportation provider at discharge will be Gloria. CM will continue to follow and will assist as needed with dc plans/needs. Dross Skimmer: Yoana Hummel MSN,RN CM DCPIA - Discharge Planning Initial Assessment Updated by [id number]: Yoana Hummel on 03/06/19 12:07 pm * Is the patient Alert and Oriented? Yes * How many steps to enter\exit or inside your home? 0/0 * PCP Charly * Pharmacy [facility] * Preadmission Environment Home with Family * ADLs Independent * Equipment None * List name and contact numbers for known caregivers / representatives who currently or will assist patient after discharge: Gloria [phone] * Verbal permission to speak to the caregivers and representatives has been obtained from the patient. Yes * Community resources currently utilized None * Additional services required to return to the preadmission environment? No * Can the patient safely return to the preadmission environment? Yes * Has this patient been hospitalized within the prior 30 days at any hospital? No Coverage Notice Reviewer: [id number] - Yoana Hummel Notice Issued Date-Time: 03/06/2019 10:10 Notice Type: Medicare Outpatient Observation Notice Notice Delivered To: Patient Relationship to Patient: Circulation Worker Name: Delivery Method: HAND - Hand Delivered Alexa Days: Prior Verbal Notification: Recipient Understood Notice: Yes Recipient Signature: Yes Med Rec Note Co-signed by Attending: Coverage Notice Comment: PETERS provided to patient. Pt verbalized understanding. Provided copy and placed on chart. Last DP export: 03/06/19 11:14 a Patient Name: JERONIMO CLARKE Page [phone] at 0839 All edits/amendments must be made on the electronic document DICTATION DATE: 03/07/19838 CORPORATE AUDITOR: ALYSSA 03/07/19838 RPT#: [id number] DC DATE:03/06/19 STATUS: DIS IN [facility] [address] [place] [address] END OF REPORT
== END 2019-03-06 17:12 | disposition home or self-care (01) ==
LOC: D.ER 23:51 → OBSVTIME 03-05 01:14 → D.M2 03-05 01:14
PROVIDERS: Family Medicine; Internal Medicine Cardiovascular Disease; ADMIT Internal Medicine Nephrology; ATTEND Internal Medicine Nephrology
DX: I21.4 Non-ST elevation (NSTEMI) myocardial infarction (principal); I10 Essential (primary) hypertension; E78.5 Hyperlipidemia, unspecified; I25.10 Atherosclerotic heart disease of native coronary artery without angina pectoris; L30.9 Dermatitis, unspecified; M19.90 Unspecified osteoarthritis, unspecified site

== ENCOUNTER 2019-04-25 05:17 | Inpatient (IN) | payer MEDICARE ==
[2019-04-25] VITALS (7 sets, daily range): BP systolic 112–136; BP diastolic 67–97; Ht 177.8 cm; Wt 83.0 kg
[~2019-04-25] VITALS: Ht 177.8 cm; Wt 83.0 kg
[~2019-04-25 05:17] MED LIST changes: +RANEXA500 MG PO; +REPATHA SY140 MG/1 M SC; +XARELTO15 MG PO
[2019-04-25 06:10] LABS: APTT 27.7 SECONDS (22.8-39.4); INR 1.22 (0.85-1.17); PROTIME 15.3 SECONDS (11.6-15.0)
[2019-04-25 06:11] LABS: D-DIMER-QUANTITATIVE 0.78 ug/mLFEU (0.20-0.54)
[2019-04-25 06:25] LABS: ANION GAP 19.6 mmol/L (8-16); CALCIUM 9.7 mg/dL (8.5-10.1); CARBON DIOXIDE 20.8 mmol/L (21.0-32.0); CREATININE - SERUM 1.3 mg/dL (0.6-1.3); POTASSIUM - SERUM 4.4 mmol/L (3.5-5.1)
[2019-04-25 06:45] LABS: BASOPHILS 0.3 % (0-2); EOSINOPHILS 2.1 % (0-7); HEMATOCRIT 46.9 % (42.0-54.0); HEMOGLOBIN 15.2 g/dL (13.5-17.5); IMMATURE GRANULOCYTES 0.1 % (0-5); LYMPHOCYTES 35.2 % (15-50); MCH 30.2 pg (26.0-34.0); MCHC 32.4 g/dL (31.0-37.0); MCV 93.1 fL (80.0-100.0); MEAN PLATELET VOLUME 9.9 fL (7.4-10.4); MONOCYTES 7.4 % (2-11); NEUTROPHILS 54.9 % (40-80); PLATELET COUNT 236 10x3/uL (130-400); RBC 5.04 10x6/uL (4.20-6.10); RDW 15.2 % (11.5-14.5)
[2019-04-25 06:49] LABS: BILIRUBIN - TOTAL 0.62 mg/dL (0.2-1.3); MAGNESIUM - SERUM 2.4 mg/dL (1.8-2.4); PROTEIN - SERUM 7.2 g/dL (6.4-8.2); THYROID STIMULATING HORMONE 5.24 uIU/mL (0.36-3.74)
[2019-04-25 07:03] LABS: TROPONIN-I 0.291 ng/mL (0.000-0.060)
[2019-04-25 07:06] LABS: BACTERIA MODERATE /hpf (NEGATIVE); BILIRUBIN NEGATIVE (NEGATIVE); EPITHELIAL CELLS RARE /hpf (0-5); GLUCOSE NEGATIVE (NEGATIVE); KETONE NEGATIVE (NEGATIVE); NITRITE NEGATIVE (NEGATIVE); RED CELLS - URINE RARE /hpf (0-5); SPECIFIC GRAVITY 1.015 (1.005-1.020); UROBILINOGEN NORMAL (NORMAL); WHITE CELLS - URINE 0-5 /hpf (NEGATIVE)
[2019-04-26] VITALS: BP 113/71
[2019-04-26 04:00] VITALS: BP 131/83
[2019-04-26 06:49] LABS: ANION GAP 16.2 mmol/L (8-16); CALCIUM 8.6 mg/dL (8.5-10.1); CARBON DIOXIDE 21.7 mmol/L (21.0-32.0); CREATININE - SERUM 1.3 mg/dL (0.6-1.3); MAGNESIUM - SERUM 2.1 mg/dL (1.8-2.4); POTASSIUM - SERUM 3.9 mmol/L (3.5-5.1)
[2019-04-26 06:59] LABS: BASOPHILS 0.5 % (0-2); EOSINOPHILS 3.8 % (0-7); HEMATOCRIT 43.7 % (42.0-54.0); IMMATURE GRANULOCYTES 0.3 % (0-5); LYMPHOCYTES 30.9 % (15-50); MCH 29.9 pg (26.0-34.0); MCV 93.4 fL (80.0-100.0); MEAN PLATELET VOLUME 10.4 fL (7.4-10.4); MONOCYTES 8.4 % (2-11); NEUTROPHILS 56.1 % (40-80); PLATELET COUNT 243 10x3/uL (130-400); RBC 4.68 10x6/uL (4.20-6.10); RDW 15.4 % (11.5-14.5); WBC 7.6 10x3/uL (4.8-10.8)
[2019-04-26 10:19] VITALS: BP 134/72
[2019-04-26] MEDS ORDERED: AMIODARONE HCL200 MG PO (12:58)
[2019-04-26 12:59] VITALS: BP 136/85
[2019-04-26] MEDS ORDERED: SYNTHROID50 MCG PO (12:59)
[2019-04-26] MEDS ORDERED: TIAZAC/CARDIZEM CD PO (12:59)
[2019-04-26] MEDS ORDERED: CARDIZEM120 MG PO (13:04)
--- NOTE | 2019-04-26 15:03 | MORECARE ---
CASE MANAGEMENT DISCHARGE SUMMARY PATIENT: JERONIMO CLARKE UNIT: [id number] ADM DATE: 04/25/19 AGE: 78 : 40 SEX: M ROOM/BED: D.8721 AUTHOR: GUILLE NGO PHYSICIAN: REFERRING PHYSICIAN: RICCO FONTANA MD DATE OF SERVICE: 04/26/19 Discharge Plan Patient Name: JERONIMO CLARKE Facility: [facility]:[place] : 1940 Planned Disposition: Home Anticipated Discharge Date: 04/26/19 Discharge Date: Expected LOS: 1 Initial Reviewer: [email or web address] Initial Review Date: 04/26/2019 Generated: 04/26/19 4:03 pm Comments DCP- Discharge Planning Updated by [email or web address]: Kev Freeman on 04/26/19 2:[address] Patient Name: JERONIMO CLARKE Admission Status: ER Accout number: [id number] Admission Date: 04-25-2019 : 1940 Admission Diagnosis:PALPITATIONS Attending: RICCO FONTANA Current LOS: 1 Anticipated DC Date: 04-26-2019 Planned Disposition: Home Primary Insurance: HUMANA CHOICE O [facility] Discharge Planning Comments: CM MET WITH PT AND SPOUSE IN ROOM TO DISCUSS DISCHARGE PLANNING AND NEEDS. JERONIMO CLARKE provided verbal consent to discuss current and ongoing needs with/in the presence of: SPOUSE, URIEL. PT REPORTS LIVING AT HOME INDEPENDENTLY WITH HIS . PT HAS NO MEDICAL EQUIPMENT AND NO OUTSIDE SERVICES ASSISTING IN THE HOME. CM DISCUSSED AVAILABILITY OF HOME HEALTH, REHAB SERVICES AND MEDICAL EQUIPMENT. PT DENIES DISCHARGE NEEDS, REPORTS HIS IS HERE TO PICK HIM UP FOR DISCHARGE HOMETODAY. DRESSING ROOM PORTER NURSE NOTIFED. Ladle Pourer: Kev Freeman DCP- Discharge Planning Updated by [email or web address]: Yoana Hummel on 04/25/19 2:[address] PETERS explained, and patient verbalized understanding. Provided copy to patient, and original placed on chart. DCPIA - Discharge Planning Initial Assessment Updated by [email or web address]: Kev Freeman on 04/26/19 3:00 pm * Is the patient Alert and Oriented? Yes * How many steps to enter\exit or inside your home? NONE * PCP DR. FARLEY * Pharmacy [facility] PT DOES NOT HAVE PRESCRIPTION PLAN, USES DISCOUNT PROGRAMS TO SHOP FOR [place] [place], [place] PAY * Preadmission Environment Home with Family * ADLs Independent * Equipment None * Other Equipment NO MEDICAL EQUIPMENT PROVIDER PREFERENCE * List name and contact numbers for known caregivers / representatives who currently or will assist patient after discharge: URIEL CLARKE, SPOUSE, * Verbal permission to speak to the caregivers and representatives has been obtained from the patient. Yes * Community resources currently utilized None * Please name any agencies selected above. NONE * Additional services required to return to the preadmission environment? No * Can the patient safely return to the preadmission environment? Yes * Has this patient been hospitalized within the prior 30 days at any hospital? No Coverage Notice Reviewer: [id number] Shelbie Hummel Notice Issued Date-Time: 04/25/2019 9:55 Notice Type: Medicare Outpatient Observation Notice Notice Delivered To: Patient Relationship to Patient: Liturgical Music Director Name: Delivery Method: HAND - Hand Delivered Alexa Days: Prior Verbal Notification: Recipient Understood Notice: Yes Recipient Signature: Yes Med Rec Note Co-signed by Attending: Coverage Notice Comment: Patient Name: JERONIMO CLARKE Page [phone] at 1503 All edits/amendments must be made on the electronic document DICTATION DATE: 04/26/19 1503 ADVERTISING SALES ASSOCIATE: ALYSSA 04/26/19 1503 RPT#: [id number] DC DATE: STATUS: ADM IN [facility] [address] [place] [address] END OF REPORT
== END 2019-04-26 16:17 | disposition home or self-care (01) | DRG 309 ==
LOC: OBSVTIME → D.ER 05:17 → D.OPS 05:17 → D.M2 05:34 → D.ER 05:34 → OBSVTIME 05:34 → D.ER 08:37 → D.M2 10:27 → EDSTATUS 15:12 → D.M2 04-26 16:17
PROVIDERS: Family Medicine; ADMIT Emergency Medicine; ATTEND Emergency Medicine
DX: I48.0 Paroxysmal atrial fibrillation (principal); I24.8 Other forms of acute ischemic heart disease; I48.92 Unspecified atrial flutter; I25.10 Atherosclerotic heart disease of native coronary artery without angina pectoris; I10 Essential (primary) hypertension; E78.5 Hyperlipidemia, unspecified; E03.9 Hypothyroidism, unspecified; I08.1 Rheumatic disorders of both mitral and tricuspid valves

== ENCOUNTER 2019-04-28 10:13 | Inpatient (IN) | payer MEDICARE ==
[~2019-04-28] VITALS: Ht 177.8 cm; Wt 83.7 kg
--- NOTE | ~2019-04-28 | HEMODYNAMI ---
PATIENT:JERONIMO CLARKE MEDICAL RECORD: [id number] : 40 LOCATION:[facility]# [id number] ADMISSION DATE: 04/28/19 Generatedon:04/29/201911:31 Patient name: JERONIMO CLARKE Patient #: [id number] SSN : [id number] : 1940 Date of study: 04/29/2019 Page: Of Hemodynamic Procedure Report Patient Data Patient Demographics Procedure consent was obtained First Name: JERONIMO Gender: Male Last Name: TRICIA : 1940 [facility] Initial: E Age: 78 year(s) Patient #: [id number] Race: SSN: [id number] Additional ID: [id number] Contact details Address: [address] [place] [address] State: [place] City: [facility] Zip code: [address] Past Medical History History of disease Date Diagnosis Comments CAD Allergies Allergen Reaction Date Comments Reported Penicillins 12/17/2015 Statins 12/17/2015 Other allergy 01/20/2016 CIPROFLOXACIN, COREG, FOSAMAX, LISINOPRIL, MEXITIL, PLAVIX, QUINIDINE, RYTHMOL Other allergy 07/14/2018 PRAVASTATIN, QUININDINE, ALENDNONATE SODIUM, CARVEDILOL, CIPNOFLOXACIN, PCN, LISINOPRIL, MEXILETINE, PROPAFENONE, [id number] REDUCTASE INHINITORS, CLOPIDOGREL. Other allergy 03/05/2019 FOSAMAX,COREG, CIPROFLOACIN, PCN, STATINS, PLAVIX, LISINOPRIL, MEXITIL, PRAVASTATIN, RYHTMOL, QUINIDINE Other allergy 03/21/2019 PCN/CARVEDILOL/ SEE LIST Other allergy 04/29/2019 PCN, STATINS/QUINIDINE/ MORE SEE LIST Admission Admission Data Admission Date: 04/28/2019 Admission Time: 11:03 Arrival Date: 04/29/2019 Arrival Time: 0:00 Admit Source: Other Insurance Payor: Private Room #: D.2235 health insurance [facility] #: [id number] Height (in.): 70 BSA: 2 (m2) Height (cm.): 177.8 BMI: 25.88 (kg/m2) Weight (lbs.): 180.36 Weight (kg.): 81.81 Lab Results Lab Result Date: 04/29/2019 Lab Result Time: 0:00 Biochemistry Name Units Result Min Max BUN mg/dl 18 --(---*)-- 7 18 CK-MB ng/ml 2.5 --(--*-)-- 0 3.6 Creatinine mg/dl 1.3 --(---*)-- 0.6 1.3 eGFR ml/min 57 *-(----)-- 90 120 NONAFRICAN Troponin l ng/ml 0.175 --(----)-* 0 0.06 CBC Name Units Result Min Max Hematocrit % 46.6 --(-*--)-- 42 54 Hemoglobin g/dl 15.1 --(-*--)-- 13.5 17.5 Procedure Procedure Types Cath Procedure Diagnostic Procedure LHC LHC w/Coronaries w/Grafts Sedation Charges Moderate Sedation up to 15 minutes Procedure Description Procedure Date Procedure Date: 04/29/2019 Procedure Start Time: 11:15 Procedure End Time: 11:29 Procedure Staff Name Function Bhanu Fitch MD Performing Physician Shira Guthrie RT Monitor Yaritza Hunter RT Scrub Manny Pena RN Nurse Procedure Data Cath Procedure Fluoroscopy Diagnostic fluoroscopy Total fluoroscopy Time: 3.2 time: 3.2 min min Diagnostic fluoroscopy Total fluoroscopy dose: 653 dose: 653 mGy mGy Contrast Material Contrast Material Type Amount (ml) Isovue 300 105 Entry Location Entry Primary Successful Side Size Upsize Upsize Entry Closure Succes sful Closure Location (Fr) 1 (Fr) 2 (Fr) Remarks Device Remarks Femoral Right 5 Fr Exoseal artery Estimated blood loss: 5 ml Diagnostic catheters Device Type Used For End Catheter Placement MULTIPACK JL 4.0 5Fr Left Coronary catheter Angiography MULTIPACK 3DRC 5Fr Procedure catheter DIAGNOSTIC AR1 MOD 5Fr Procedure catheter ([id number]) MULTIPACK Pigtail 5 Fr LV Angiography catheter Procedure Complications No complications Procedure Medications Medication Administration Route Dosage 0.9% NaCl I.V. 10 ml/hr Oxygen NC 2 l/min Heparin Flush Bag added to field 2 bags (1000units/500ml NS) Lidocaine 2% added to field 20 Effient P.O. 10 mg Benadryl I.V. 50 mg Versed I.V. 1 mg Fentanyl I.V. 50 mcg Hemodynamics Rest BSA: 2 (m2) HGB: 15.1 (g/dl) O2 Consumption: Estimated: 243.18 (ml/min) O2 Consu mption indexed: Estimated:121.59 (ml/min/m) Heart Rate: 89 (bpm) Pressure Samples Time Site Value (mmHg) Purpose Heart Use Rate(bpm) 11:23 LV 114/17,19 Snapshot 89 11:24 AO 118/50(82) Pullback 113 11:24 LV 112/21,31 Pullback 113 Gradients Valve Time Site 1 Site 2 Mean SEP/DFP Peak To Heart Use (mmHg) (sec/min) Peak Rate (mmHg) (bpm) Aortic 11:24 LV AO 0 18 0 113 112/21,31 118/50(82) Calculations Valve P-P Mean Valve Index Valve Source Name Gradient Area Flow (cm2) Aortic 0 0 0 0 Snapshots Pre Cath Intra NCS Post Cath Vital Signs Time Heart Resp SPO2 etCO2 NIBP (mmHg) Rhythm Pain Sedation Rate (ipm) (%) (mmHg) Status Level (bpm) 11:00:58 96 20 95 0 132/87(108) NSR 0 (11) 10(A) , No pain 11:05:06 90 20 94 0 131/87(109) NSR 0 (11) 10(A) , No pain 11:09:16 93 16 92 0 134/86(100) NSR 0 (11) 10(A) , No pain 11:13:26 89 16 91 0 135/86(111) NSR 0 (11) 10(A) , No pain 11:17:38 96 18 93 0 141/82(101) NSR 0 (11) 9(A) , No pain 11:21:49 99 16 92 0 133/83(111) NSR 0 (11) 9(A) , No pain 11:25:59 101 18 93 0 137/87(118) NSR 0 (11) 9(A) , No pain 11:30:14 92 17 94 0 133/83(106) NSR 0 (11) 9(A) , No pain Medications Time Medication Route Dose Verified Delivered Reason Notes Ef fectiveness by by 11:07:37 0.9% NaCl I.V. 10 Manny Manny Per ml/hr Jean Pena physician RN RN 11:07:53 Oxygen NC 2 Manny Manny for low 02 l/min Jean Pena sats RN RN 11:08:06 Heparin Flush added 2 Manny Manny used for Bag to bags Jean Pena procedure (1000units/500ml field RN RN NS) 11:08:17 Lidocaine 2% added 20ml Manny Manny for local to vial Jean Pena anesthetic field RN RN 11:08:35 Effient P.O. 10 mg Manny Manny for Jean Pena antiplatelet RN RN therapy 11:08:55 Benadryl I.V. 50 mg Manny Manny Per Jean Pena physician RN RN 11:13:27 Versed I.V. 1 mg Manny Manny for sedation Jean Pean RN RN 11:13:36 Fentanyl I.V. 50 Manny Manny for sedation mcg Jean Pena RN [employer] officer Log Time Note 10:18:13 Diagnostic Cath Status : Elective 10:19:04 Lab Result : Troponin l 0.175 ng/ml 10:19:04 Lab Result : eGFR NONAFRICAN 57 ml/min 10:19:04 Lab Result : CK-MB 2.5 ng/ml 10:19:04 Lab Result : BUN 18 mg/dl 10:19:04 Lab Result : Creatinine 1.3 mg/dl 10:19:04 Lab Result : Hemoglobin 15.1 g/dl 10:19:04 Lab Result : Hematocrit 46.6 % 10:19:19 Arrival Date: 04/29/2019 12:00:00 AM 10:19:20 Admit Source: Other 10:19:34 Insurance Payor : Private health insurance 10:19:46 Patient Height : 70 inches 10:19:51 Patient Weight : 180.36 lbs 10:20:03 Informed consent obtained and on chart 10:21:41 Procedure Status Urgent Heart Cath (IP). 10:21:45 Time tracking: Regular hours (M-F 7:00 - 5:00) 10:21:49 Plan of Care:Hemodynamics will remain stable., Cardiac rhythm will remain stable., Comfort level will be maintained., Respiratory function will remain adequate., Patient/ family verbilizes understanding of procedure., Procedure tolerated without complication., Recovers from procedure without complications.. 10:22:00 H&P Date Dictated: 04/28/2019 Within 30 days and on chart.. 10:22:01 Pre-procedure instructions explained to patient. 10:22:01 Pre-op teaching completed and patient verbalized understanding. 10:22:03 Family unavailable. 10:22:05 Patient NPO since Midnight. 10:22:13 Lab results completed and on chart. 10:22:16 Stress Test: no; N/A ? 10:22:18 Alarms reviewed by R. N. 10:22:18 Sharps counted by scrub and verified by R.N. 10:38:39 Patient allergic to Other allergyPCN, STATINS/QUINIDINE/ MORE SEE LIST 10:38:47 Yaritza Hunter RT(R) sent for patient. Start room use. 10:41:51 Risk of Mortality: 1.7 10:41:56 Risk of blood transfusion: 1.3 10:42:01 Risk of SAIRA: 6.3 10:42:23 ACC Patient presents with Stable Angina CCS Anginal Class 3--Marked limitation of physical activity, angina occurs with ordinary activity.. 10:48:00 Patient received from Med/Surg to CCL 1 Alert and oriented. Tansferred to table in Supine position. 10:48:02 Warm blankets applied, and elfego hugger turned on for patient comfort. 10:48:03 Correct patient and procedure confirmed by team. 10:48:03 ECG and BP/O2 sat monitors applied to patient. 10:59:53 Vital chart was started 10:59:55 Baseline sample Acquired. 11:00:07 Rhythm: sinus rhythm , atrial fibrillation 11:00:11 Full Disclosure recording started 11:00:12 - 11:00:20 Is the patient allergic to Iodine/contrast media? No. 11:00:23 Was the patient premedicated? Yes 11:00:26 Is patient on blood thinner?Yes 11:00:31 ACC The patient was administered the following blood thiners within the last 24 hours: ACCEffient 11:00:36 Patient diabetic? No. 11:00:39 ----Pre-sedation anethsthesia assessment.---- 11:00:47 Previous problem with sedation/anesthesia? No ? 11:00:53 Snore? Yes 11:01:02 Sleep apnea? No 11:01:06 Deviated septum? No 11:01:39 Opens mouth fully? Yes 11:01:42 Sticks out tongue? Yes 11:01:46 Airway obstruction? No ? 11:02:10 Dentures? No ? 11:02:18 Pre procedure: right dorsailis pedis pulse 1+ Palpable, but thready & weak; easily obliterated 11:03:26 IV patent on arrival in left hand with 0.9% NaCl at [facility]. 11:03:33 Right groin area was prepped with chlora-prep and draped in sterile fashion 11:04:42 Use device set Femoral Dx 11:04:44 ACIST Syringe (26022) opened to sterile field. 11:04:45 Bag Decanter (2002S) opened to sterile field. 11:04:46 Medline Cath Pack ([id number]) opened to sterile field. 11:04:48 ACIST Hand Control (75699) opened to sterile field. 11:04:48 ACIST Manifold (76797) opened to sterile field. 11:04:49 DIAGNOSTIC Multipack 5Fr catheter set ([id number]) opened to sterile field. 11:04:51 Tegaderm 4 x 4 (1626W) opened to sterile field. 11:04:58 SHEATH 5FR Spangler (PNK294) opened to sterile field. 11:04:59 EMERALD Guide Wire (848-992) opened to sterile field. 11:06:36 Zero performed for pressure channel P1 11:07:37 0.9% NaCl 10 ml/hr I.V. was administered by Manny Pena RN; Per physician; Verbal order read back and verified. 11:07:53 Oxygen 2 l/min NC was administered by Manny Pena RN; for low 02 sats; Verbal order read back and verified. 11:08:06 Heparin Flush Bag (1000units/500ml NS) 2 bags added to field was administered by Manny Pena RN; used for procedure; Verbal order read back and verified. 11:08:17 Lidocaine 2% 20ml vial added to field was administered by Manny Pena RN; for local anesthetic; Verbal order read back and verified. 11:08:35 Effient 10 mg P.O. was administered by Manny Pena RN; for antiplatelet therapy; Verbal order read back and verified. 11:08:55 Benadryl 50 mg I.V. was administered by Manny Pena RN; Per physician; Verbal order read back and verified. 11:13:05 Physician arrived 11::05 --------ALL STOP TIME OUT------ 11:13:06 Final Timeout: patient, procedure, and site verified with staff and physician. All members of the team are in agreement. :13:08 Right groin site verified by team. 11:13:18 Fire Safety Assessment: A--An alcohol-based skin anteseptic being used preoperatively., C--Open oxygen or nitrous oxide is being used., D--An ESU, laser, or fiber-optic light is being used. 11:13:21 Physical assessment completed. ASA score P 2 - A patient with mild systemic disease as per Bhanu Fitch MD. 11:13:26 3a) 45-59 Moderately reduced kidney function. 11:13:27 Versed 1 mg I.V. was administered by Manny Pena RN; for sedation; Verbal order read back and verified. 11:13:31 Maximum allowable contrast dose (3.7 X eGFR X 0.75)158 ml. 11:13:36 Fentanyl 50 mcg I.V. was administered by Manny Pena RN; for sedation; Verbal order read back and verified. 11:13:36 Sedation plan: IV Moderate Sedation Medication:Versed, Fentanyl 11:15:02 Procedure started. 11:15:30 Local anesthetic to right femoral artery with Lidocaine 2% by Bhanu Virk MD.INITIAL ACCESS ONLY 11:15:37 Zero performed for pressure channel P1 11:16:21 A 5 Fr sheath was inserted into the Right Femoral artery 11:16:30 A MULTIPACK JL 4.0 5Fr catheter was advanced over the wire and used for Left Coronary Angiography. 11:17:15 LCA angiography performed. 11:17:19 Catheter removed. 11:17:29 A MULTIPACK 3DRC 5Fr catheter was advanced over the wire and used for Procedure. 11:18:24 RCA angiography performed. 11:18:38 SVG to Circ angiography performed. 11:19:30 VAZQUEZ to LAD angiography performed. 11:19:43 Catheter removed. 11:20:21 A DIAGNOSTIC AR1 MOD 5Fr catheter ([id number]) was advanced over the wire and used for Procedure. 11:21:48 SVG to RCA angiography performed. 11:22:09 Catheter removed. 11:22:58 A MULTIPACK Pigtail 5 Fr catheter was advanced over the wire and used for LV Angiography. 11:23:21 LV gram done using BLANKENSHIP 11:23:39 LV hemodynamics recorded. 11:23:42 Injector settings: Ml/sec: 5, Volume: 15, 11:24:00 EF : 40 % 11:24:18 Catheter removed. 11:24:21 EXOSEAL 5Fr (EX500) opened to sterile field. 11:24:49 Sheath removed intact; hemostasis achieved with Exoseal to the Right Femoral artery. 11:24:58 Procedure ended.(Physican Out) 11:25:17 Contrast amount:Isovue 300 105ml. 11:25:26 Maximum allowable dose exceeded? No. 11:26:57 Sharps counted by scrub and verified by R.N. 11:27:05 Fluoroscopy time 03.20 minutes. 11:27:13 Flurop Dose total: 653 11::13 Fluoroscopy dose: 653 mGy 11:27:21 Dose Area Product 09645 mGy/cm. 11:27:25 Insertion/operative site no bleeding no hematoma. 11:27:30 Post-op/insertion site Right Femoral artery dressed using a 4 x 4 and Tegaderm. 11:27:34 Post right femoral artery:stable 11:27:36 Post Procedure Pulses reassessed and unchanged 11:27:41 Post-procedure physical assessment completed. ASA score P 2 - A patient with mild systemic disease as per Bhanu Fitch MD. 11:27:45 Post procedure rhythm: unchanged. 11:27:49 Estimated blood loss: 5 ml 11:27:50 Post procedure instruction explained to patient.Patient verbalizes understanding. 11:27:51 Patient needs reinforcement of post procedure teaching. 11:28:36 Procedure type changed to Cath procedure, Diagnostic procedure, LHC, LH C w/Coronaries w/Grafts, Sedation Charges, Moderate Sedation up to 15 minutes 11:28:38 Procedure and supply charges have been captured, reviewed, submitted an d are correct. 11:29:27 Procedure Complication : No complications 11:29:30 Vital chart was stopped 11:29:34 [facility] Findings: mild to moderate CAD (<70%) 11:29:39 Operative report dictated upon procedure completion. 11:29:39 See physician's report for complete and final results. 11:29:43 Report given to Med/Surg. 11:29:49 Patient transfered to Med/Surg with Bed. 11:29:52 Procedure ended. 11:29:52 Full Disclosure recording stopped 11:29:56 End room use (Document Last) Device Usage Item Name Manufacture Quantity Catalog Hospital Part Current Minimal L ot# / Number Charge Number Stock Stock Serial# Code ACIST Acist 1 61319 [id number] 455273 [id number] 20 Syringe Medical (90780) Systems Inc Bag Microtek 1 2001S 702328 23406 463323 5 Decanter Medical Inc. () Medline Medline 1 [id number] 965033 84785 061493 5 Cath Pack ([id number]) ACIST Hand Acist 1 53875 705989 673200 891105 5 Control Medical (74794) Systems Inc ACIST Acist 1 72510 173091 390853 763953 5 Manifold Medical (69156) Systems Inc DIAGNOSTIC Cardinal 1 IX2423 152963 34745 756546 30 Multipack WaterplayUSA 5Fr catheter set (QQ1090) Tegaderm 4 3M 1 1626W 351896 250718 025113 5 x 4 (1626W) SHEATH 5FR Terumo 1 IAZ949 741202 932476 878161 5 Spangler (JVD351) EMERALD Cardinal 1 502-455 630344 179658 176169 5 Guide Wire Water[employer]USA (502-590) MULTIPACK Cardinal 1 824288 5 JL 4.0 5Fr Health catheter MULTIPACK Cardinal 1 257657 5 3DRC 5Fr Health catheter DIAGNOSTIC Cardinal 1 [id number] 643721 473493 585484 15 AR1 MOD 5Fr Health catheter ([id number]) MULTIPACK Cardinal 1 259302 5 Pigtail 5 Health Fr catheter EXOSEAL 5Fr Cardinal 1 EX500 033841 965729 180965 10 (EX500) Health Signature Audit [place] Stage Time Signature Unsigned Intra-Procedure 04/29/2019 Shira 11:30:31 AM Jerri RT(R) (CV) Intra-Procedure 04/29/2019 Manny 11:30:59 AM Jean [place] Intra-Procedure 04/29/2019 Bhanu Castellano 11:31:30 AM Moose [place] [id number] [place] [id number]
[~2019-04-28 10:13] MED LIST changes: +AMIODARONE HCL200 MG PO; +CARDIZEM120 MG PO; +SYNTHROID50 MCG PO; +TIAZAC/CARDIZEM CD PO
[2019-04-28 10:38] VITALS: BP 166/103
[2019-04-28 10:38] LABS: BASOPHILS 0.2 % (0-2); EOSINOPHILS 0.6 % (0-7); HEMATOCRIT 46.6 % (42.0-54.0); HEMOGLOBIN 15.1 g/dL (13.5-17.5); IMMATURE GRANULOCYTES 0.1 % (0-5); LYMPHOCYTES 18.8 % (15-50); MCH 30.2 pg (26.0-34.0); MCHC 32.4 g/dL (31.0-37.0); MCV 93.2 fL (80.0-100.0); MEAN PLATELET VOLUME 10.1 fL (7.4-10.4); MONOCYTES 8.7 % (2-11); NEUTROPHILS 71.6 % (40-80); PLATELET COUNT 243 10x3/uL (130-400); RDW 15.2 % (11.5-14.5); WBC 8.8 10x3/uL (4.8-10.8)
[2019-04-28 10:41] LABS: INR 1.19 (0.85-1.17)
[2019-04-28 10:46] LABS: CALC OSMOLALITY 278 mosm/kg (275-300); CARBON DIOXIDE 22.3 mmol/L (21.0-32.0); CHLORIDE - SERUM 102 mmol/L (98-107); CREATININE - SERUM 1.3 mg/dL (0.6-1.3); GLUCOSE 113 mg/dL (74-106); POTASSIUM - SERUM 3.4 mmol/L (3.5-5.1); SODIUM 138 mmol/L (136-145); UREA NITROGEN 18 mg/dL (7-18); eGFR NON AFRICAN AMERICAN 57 mL/min (90-120)
[2019-04-28 10:49] VITALS: BP 153/86
[2019-04-28 11:07] LABS: ALKALINE PHOSPHATASE 72 U/L (30-120); ALT (SGPT) 51 U/L (10-68); BILIRUBIN - TOTAL 1.08 mg/dL (0.2-1.3); CKMB 2.5 U/L (0.0-3.6); CREATINE KINASE 87 UL (21-232); PRO BNP 1680 pg/mL (0-450); PROTEIN - SERUM 7.9 g/dL (6.4-8.2)
[2019-04-28 11:10] LABS: TROPONIN-I 0.175 ng/mL (0.000-0.060)
[2019-04-28 12:10] VITALS: BP 135/77
--- NOTE | 2019-04-28 12:15 | NUR ---
ROCEPHIN COMPLETED INFUSION BEFORE TRANSFERRING TO FLOOR
--- NOTE | 2019-04-28 12:40 | NUR ---
INFUSION OF AZITHROMYCIN 400 MG/250 ML NS (OVER 60 MINUTES) COMPLETE UPON TRANSFER TO ROOM AT 1240
[2019-04-28 16:42] VITALS: BP 131/85
[2019-04-28 20:00] VITALS: BP 122/72
[2019-04-29 01:50] VITALS: BMI 25.8
[2019-04-29 04:00] VITALS: BP 115/70
[2019-04-29 04:30] LABS: BASOPHILS 0.1 % (0-2); EOSINOPHILS 1.8 % (0-7); HEMATOCRIT 44.8 % (42.0-54.0); HEMOGLOBIN 14.7 g/dL (13.5-17.5); IMMATURE GRANULOCYTES 0.1 % (0-5); LYMPHOCYTES 23.9 % (15-50); MCH 30.6 pg (26.0-34.0); MCHC 32.8 g/dL (31.0-37.0); MCV 93.1 fL (80.0-100.0); MEAN PLATELET VOLUME 10.2 fL (7.4-10.4); NEUTROPHILS 65.1 % (40-80); PLATELET COUNT 252 10x3/uL (130-400); RBC 4.81 10x6/uL (4.20-6.10); RDW 15.3 % (11.5-14.5); WBC 8.2 10x3/uL (4.8-10.8)
[2019-04-29 05:04] LABS: ALBUMIN 3.6 g/dL (3.4-5.0); ANION GAP 16.7 mmol/L (8-16); BILIRUBIN - TOTAL 0.91 mg/dL (0.2-1.3); CALCIUM 8.5 mg/dL (8.5-10.1); CARBON DIOXIDE 21.8 mmol/L (21.0-32.0); CREATININE - SERUM 1.3 mg/dL (0.6-1.3); POTASSIUM - SERUM 3.5 mmol/L (3.5-5.1); PROTEIN - SERUM 7.1 g/dL (6.4-8.2)
[2019-04-29 08:44] LABS: CHOL - HDL RATIO 1.7 ratio (2.3-4.9); LDL-HDL RATIO 0.2 ratio (1.5-3.5)
[2019-04-29 08:55] VITALS: BP 138/81
--- NOTE | 2019-04-29 09:43 | NUR ---
SIGNING CONSENTS, HE HAS BEEN CLIPPED- BOTH SIDE AND RT ARM. HAD A BATH. AT THE BEDSIDE.
--- NOTE | 2019-04-29 10:40 | NUR ---
HERE TO GET THE PATIENT FOR THE INFECTIOUS DISEASES PHYSICIAN, THEY SAID THEY WOULD GIVE THE PRE OP MEDS.
--- NOTE | 2019-04-29 11:30 | NUR ---
RECIVED PT FROM ORDER MANAGEMENT SPECIALIST PER BED TO ROOM 2123, RT ALYSE ARAIZA C/D/I, PULSE PALP
--- NOTE | 2019-04-29 11:42 | NUR ---
REPORT CALLED TO [facility] ON MED 2.
[2019-04-29 12:32] VITALS: BP 114/72
[2019-04-29 13:01] VITALS: Ht 177.8 cm; Wt 83.7 kg
--- NOTE | 2019-04-29 16:41 | MORECARE ---
CASE MANAGEMENT DISCHARGE SUMMARY PATIENT: JERONIMO CLARKE UNIT: [id number] ADM DATE: 04/28/19 AGE: 78 : 40 SEX: M ROOM/BED: D.8644 AUTHOR: JENI,DOC PHYSICIAN: REFERRING PHYSICIAN: NEFTALI LERMA MD DATE OF SERVICE: 04/29/19 Discharge Plan Patient Name: JERONIMO CLARKE Facility: [facility]:[place] : 1940 Planned Disposition: Home Anticipated Discharge Date: 04/29/19 Discharge Date: Expected LOS: 1 Initial Reviewer: MADI Initial Review Date: 04/29/2019 Generated: 04/29/19 5:41 pm Comments DCP- Discharge Planning Updated by [email or web address]: Kev Freeman on 04/29/19 3:[address] Patient Name: JERONIMO CLARKE Admission Status: Elective Accout number: [id number] Admission Date: 04-28-2019 : 1940 Admission Diagnosis: Attending: NEFTALI LERMA Current LOS: 1 Anticipated DC Date: 04-29-2019 Planned Disposition: Home Primary Insurance: [employer] CHOICE PPO MCR ADVANT Discharge Planning Comments: CM MET WITH PT IN ROOM TO DISCUSS DISCHARGE PLANNING AND NEEDS. PT REPORTS LIVING AT HOME INDEPENDENTLY WITH HIS . PT HAS NO MEDICAL EQUIPMENT AND NO OUTSIDE SERVICES ASSISTING IN THE HOME. CM DISCUSSED AVAILABILITY OF HOME HEALTH, REHAB SERVICES AND MEDICAL EQUIPMENT. PT DENIES DISCHARGE NEEDS, REPORTS HIS FAMILY WILL PICK HIM UP FOR DISCHARGE HOME. PT PLANS TO DISCHARGE HOME WITH SPOUSE, HAS NO ANTICIPATED DISCHARGE NEEDS AT THIS TIME. FAMILY TO TRANSPORT HOME AT DISCHARGE. CM TO FOLLOW AND ASSIST IF NEEDED. Manager Adobe: Kev Freeman DCPIA - Discharge Planning Initial Assessment Updated by [id number]: Kev Freeman on 04/29/19 4:37 pm * Is the patient Alert and Oriented? Yes * How many steps to enter\exit or inside your home? NONE * PCP DR. FARLEY * [facility] [employer] [facility] [employer] PT DOES NOT HAVE PRESCRIPTION DRUG INSURANCE AND SHOPS FOR [place] USING [employer] PROGRAMS * Preadmission Environment Home with Family * ADLs Independent * Equipment None * Other Equipment NO MEDICAL EQUIPMENT PROVIDER PREFERENCE * List name and contact numbers for known caregivers / representatives who currently or will assist patient after discharge: URIEL TASHIA CLARKE, * Verbal permission to speak to the caregivers and representatives has been obtained from the patient. N/A * Community resources currently utilized None * Please name any agencies selected above. NONE * Additional services required to return to the preadmission environment? No * Can the patient safely return to the preadmission environment? Yes * Has this patient been hospitalized within the prior 30 days at any hospital? Yes Patient Name: JERONIMO CLARKE Page [id number] at 1641 All edits/amendments must be made on the electronic document DICTATION DATE: 04/29/191640 RADIO DISPATCHER: ALYSSA 04/29/191640 RPT#: [id number] DC DATE: STATUS: ADM IN [facility] [address] [place] [address] END OF REPORT
[2019-04-29 17:09] VITALS: BP 114/72
--- NOTE | 2019-04-29 19:00 | NUR ---
RECEIVED REPORT, WILL ASSUME CARE OF PT, RESTING, DENIES ANY NEEDS AT THIS TIME, BED IS LOW, SRX2, CALL LIGHT IN REACH, WILL CONTINUE PLAN OF CARE
[2019-04-29 20:00] VITALS: BP 118/69
[2019-04-30] VITALS: BP 126/83
[2019-04-30 04:00] VITALS: BP 119/70
--- NOTE | 2019-04-30 04:21 | NUR ---
I have reviewed this patient and I concur with the Shift Assessment completed by the Licensed Practical Nurse today this shift.
[2019-04-30 05:48] LABS: HEMATOCRIT 44.3 % (42.0-54.0); HEMOGLOBIN 14.4 g/dL (13.5-17.5); MCHC 32.5 g/dL (31.0-37.0); MCV 92.3 fL (80.0-100.0); MEAN PLATELET VOLUME 9.8 fL (7.4-10.4); NEUTROPHILS 61.8 % (40-80); PLATELET COUNT 236 10x3/uL (130-400); RDW 15.2 % (11.5-14.5); WBC 7.3 10x3/uL (4.8-10.8)
[2019-04-30 06:19] LABS: ALBUMIN 3.6 g/dL (3.4-5.0); BILIRUBIN - TOTAL 0.6 mg/dL (0.2-1.3); CALCIUM 8.7 mg/dL (8.5-10.1); CARBON DIOXIDE 21.5 mmol/L (21.0-32.0); CREATININE - SERUM 1.3 mg/dL (0.6-1.3); POTASSIUM - SERUM 3.5 mmol/L (3.5-5.1); PROTEIN - SERUM 6.7 g/dL (6.4-8.2)
[2019-04-30 08:42] VITALS: BP 134/74
--- NOTE | 2019-04-30 10:08 | NUR ---
I have reviewed this patient and I concur with the Shift Assessment completed by the Licensed Practical Nurse today this shift.
--- NOTE | 2019-04-30 10:08 | NUR ---
I have reviewed this patient and I concur with the Shift Assessment completed by the Licensed Practical Nurse today this shift.
--- NOTE | 2019-04-30 10:37 | CN ---
PATIENT NAME:JERONIMO CLARKE MEDICAL RECORD: [id number] : [birth year] LOCATION:D. 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 He has had 2 episodes of atrial fibrillation with RVR. Both episodes accompanied by elevated troponins. He had chest tightness, pressure with his last episode. Currently, rates are controlled, intolerant to class 1 as well as sotalol therapy, some bradyarrhythmias. Those are not true allergic type reactions given 2 episodes with increase in the enzymes. Plan for angiography. PAST MEDICAL HISTORY: Includes: 1. History of hypertension. 2. Hyperlipidemia. 3. Coronary artery disease as described above. 4. Paroxysmal atrial fibrillation. 5. Hypothyroid, recently started on Synthroid. ALLERGIES: PENICILLIN, STATINS, CLONIDINE, LISINOPRIL, CIPRO, PRAVASTATIN, SOTALOL, PROPAFENONE. MEDICATIONS: Include Effient 10 mg p.o. every day, isosorbide 30 mg p.o. every day, amiodarone 200 every day, diltiazem 120 t.i.d., Repatha 140 every day, aspirin 325 every day, Synthroid 50 mcg every day. SOCIAL HISTORY: Nonsmoker, nondrinker. Retired. Easily takes care of all his ADLs. REVIEW OF SYSTEMS: The patient reports easy bruising but reports no swollen glands. The patient reports no fever, no night sweats, no significant weight gain, no significant weight loss. No significant exercise tolerance. The patient reports no dry eyes, no irritation, no vision change. Patient reports no difficulty hearing and no ear pain. Patient reports no frequent nose bleeds or nose and sinus problems. Patient reports on arm pain on exertion. No shortness of breath while lying down. No history of heart murmur. Patient reports no cough, no wheezing or coughing up blood. Patient reports no abdominal pain, no vomiting. Normal appetite. No diarrhea and not vomiting blood. No nausea and no constipation. Patient reports no incontinence. No difficulty urinating. No hematuria. No increased frequency. Patient reports no muscle aches. No weakness, no arthralgias, no back pain. No swelling of the extremities. Patient reports no abnormal mole, no jaundice, no rashes. Reports no loss of consciousness. No weakness and no numbness. No seizures, dizziness, or headaches. The patient reports no depression, no sleep disturbance, feeling safe in a relationship and no alcohol abuse. Patient reports on fatigue. Reports no runny nose or sinus pressure. No itching, no hives, and no frequent sneezing. PHYSICAL EXAMINATION: GENERAL: Pleasant gentleman, in no acute distress, appears stated age. CONSULT REPORT [id number] JERONIMO CLARKE VITAL SIGNS: Blood pressure 115/70, pulse 77 and regular. HEENT: Normocephalic, atraumatic. NECK: No bruits are noted. HEART: Irregular, rate is controlled, II/ systolic ejection murmur. LUNGS: Actually fair to good air excursion with mild decreased breath sounds both bases. ABDOMEN: Soft, nontender. EXTREMITIES: Pulses 2+ with no edema. NEUROLOGIC: Grossly intact. IMPRESSION: NSTEMI. PLAN: We will plan to angiography to make sure this is more of suspected type 2 as suppose to type 1 with elevated rates. Given failure of medication, etc., on maxed myopathic ischemic medications, probably would benefit from referral for possible arrhythmic ablation. TRANSINT:[id number] Voice Confirmation ID: [id number] DOCUMENT ID: [id number] RODNEY MOONEY MD at 1037 CC: [id number] DICTATION DATE: 04/29/19 0835 COMPOSITION MIXER: 04/29/19 1251 ADM IN [place] [address] [place] [address]
--- NOTE | 2019-04-30 10:37 | OP ---
PATIENT NAME: JERONIMO CLARKE MEDICAL RECORD: [id number] :40 LOCATION:D.M2 D.2124 ADMISSION DATE:04/28/19 SURGEON: RODNEY MOONEY MD DATE OF OPERATION: 04/29/2019 PROCEDURE: Left heart catheterization, selective coronary angiography, right femoral artery approach. CATHETERS: A 5-Italian sheath, 5/4 left and right Nile, 5/4 pig. The procedure was well tolerated. The patient returned to the ortiz, sheath removed. ExoSeal device placed. FINDINGS: Left ventriculography in 30-degree BLANKENSHIP view shows global hypokinesis, EF 40%. CORONARY ANATOMY: LEFT MAIN: Left main is free of disease. LAD: The LAD is totally occluded, it can be seen via competitive flow via the VAZQUEZ graft. CIRCUMFLEX: Totally occluded. RIGHT CORONARY ARTERY: Totally occluded in its proximal portion. BYPASS GRAFTS: 1. VAZQUEZ to LAD is widely patent throughout its course. Stent in the distal LAD is widely patent. This was intervened on for the VAZQUEZ itself. 2. Circumflex graft: Circumflex graft to the OM circumflex system is widely patent. 3. Saphenous vein graft to the right coronary is widely patent. Previous stenting is widely patent. IMPRESSION: Patent previously placed stents. Mild decrease in LV function, suspect maybe tachy-mediated from his intermittent atrial fibrillation. We will give additional digoxin, increase amiodarone, consider referral to EP for possible ablation. TRANSINT:[id number] Voice Confirmation ID: [id number] DOCUMENT ID: [id number] RODNEY MOONEY MD at 1037 CC: [id number] DICTATION DATE: 04/29/19 1136 GAME DESIGN INSTRUCTOR: 04/29/19 1321 ADM IN [facility] [address] [place] [address]
[2019-04-30] MEDS ORDERED: AMIODARONE HCL200 MG PO ×2 (11:28→12:24)
--- NOTE | 2019-04-30 12:21 | NUR ---
UPON ADMIT, NO FLU SHOT. WHEN QUESTIONED UPON DISCHARGE HE REFUSED IT. IN ROOM.
[2019-04-30] MEDS ORDERED: ALDACTONE25 MG PO (12:26)
[2019-04-30] MEDS ORDERED: METOPROLOL TART50 MG PO (12:27)
--- NOTE | 2019-04-30 14:10 | NUR ---
PT DISCHARGED HOME VIA WHEELCHAIR WITH FAMILY. PIV REMOVED WITH CATHETER TIP FULLY INTACT. PT SIGNED PROPER DISCHARGE INSTRUCTIONS AND REMOVED ALL VALUABLES FROM THE ROOM. TELEMETRY REMOVED AND RETURNED.
--- NOTE | 2019-04-30 14:27 | MORECARE ---
CASE MANAGEMENT DISCHARGE SUMMARY PATIENT: JERONIMO CLARKE UNIT: [id number] ADM DATE: 04/28/19 AGE: 78 : 40 SEX: M ROOM/BED: D.2215 AUTHOR: JENI,DOC PHYSICIAN: REFERRING PHYSICIAN: NEFTALI LERMA MD DATE OF SERVICE: 04/30/19 Discharge Plan Patient Name: JERONIMO CLARKE Facility: [facility]:[place] : 1940 Planned Disposition: Home Anticipated Discharge Date: 04/23/19 Discharge Date: 04/30/2019 Expected LOS: -5 Initial Reviewer: [email or web address] Initial Review Date: 04/29/2019 Generated: 04/30/19 3:27 pm Comments DCP- Discharge Planning Updated by [id number]: Kev Freeman on 04/30/19 1:[address] Patient Name: JERONIMO CLARKE Encounter No: [id number] : 1940 Primary Insurance: [employer] CHOICE PPO MCR ADVANT Anticipated DC Date: 04-29-2019 Planned Disposition: Home DCP follow-up note: CM MET WITH PT IN ROOM TO DISCUSS DISCHARGE NEEDS AND PLANNING. CM DISCUSSED AVAILABILITY OF HOME HEALTH, REHAB SERVICES AND MEDICAL EQUIPMENT. PT DENIES DISCHARGE NEEDS. SPOUSE TO TRANSPORT HOME AT DISCHARGE. IMPORTANT MESSAGE FROM MEDICARE PROVIDED AND EXPLAINED. PREP MANAGER NURSE NOTIFIED. Kev Freeman CASE MANAGEMENT DCP- Discharge Planning Updated by [id number]: Kev Freeman on 04/29/19 3:[address] Patient Name: JERONIMO CLARKE Admission Status: Elective Accout number: [id number] Admission Date: 04-28-2019 : 1940 Admission Diagnosis: Attending: NEFTALI LREMA Current LOS: 1 Anticipated DC Date: 04-29-2019 Planned Disposition: Home Primary Insurance: [employer] CHOICE PPO MCR ADVANT Discharge Planning Comments: CM MET WITH PT IN ROOM TO DISCUSS DISCHARGE PLANNING AND NEEDS. PT REPORTS LIVING AT HOME INDEPENDENTLY WITH HIS . PT HAS NO MEDICAL EQUIPMENT AND NO OUTSIDE SERVICES ASSISTING IN THE HOME. CM DISCUSSED AVAILABILITY OF HOME HEALTH, REHAB SERVICES AND MEDICAL EQUIPMENT. PT DENIES DISCHARGE NEEDS, REPORTS HIS FAMILY WILL PICK HIM UP FOR DISCHARGE HOME. PT PLANS TO DISCHARGE HOME WITH SPOUSE, HAS NO ANTICIPATED DISCHARGE NEEDS AT THIS TIME. FAMILY TO TRANSPORT HOME AT DISCHARGE. CM TO FOLLOW AND ASSIST IF NEEDED. Furrier Designer: Kev Freeman DCPIA - Discharge Planning Initial Assessment Updated by [id number]: Kev Freeman on 04/29/19 4:37 pm * Is the patient Alert and Oriented? Yes * How many steps to enter\exit or inside your home? NONE * PCP DR. FARLEY * Pharmacy [facility] [place] [facility] PT DOES NOT HAVE PRESCRIPTION DRUG INSURANCE AND SHOPS FOR BEST GAR[place] USING [employer] * Preadmission Environment Home with Family * ADLs Independent * Equipment None * Other Equipment NO MEDICAL EQUIPMENT PROVIDER PREFERENCE * List name and contact numbers for known caregivers / representatives who currently or will assist patient after discharge: TASHIA FELICIANO, * Verbal permission to speak to the caregivers and representatives has been obtained from the patient. N/A * Community resources currently utilized None * Please name any agencies selected above. NONE * Additional services required to return to the preadmission environment? No * Can the patient safely return to the preadmission environment? Yes * Has this patient been hospitalized within the prior 30 days at any hospital? Yes Coverage Notice Reviewer: [id number] - Kev Freeman Notice Issued Date-Time: 04/30/2019 13:15 Notice Type: IM Discharge Notice Notice Delivered To: Patient Relationship to Patient: [facility] Supervisor Name: Delivery Method: HAND - Hand Delivered Alexa Days: Prior Verbal Notification: Recipient Understood Notice: Yes Recipient Signature: Yes Med Rec Note Co-signed by Attending: Coverage Notice Comment: Last DP export: 04/29/19 3:41 p Patient Name: JERONIMO CLARKE Page 19897 at 1427 All edits/amendments must be made on the electronic document DICTATION DATE: 04/30/191426 CASE MANAGEMENT DIRECTOR: ALYSSA 04/30/191426 RPT#: [id number] DC DATE:04/30/19 STATUS: DIS IN [facility] [address] [place] [address] END OF REPORT
== END 2019-04-30 14:11 | disposition home or self-care (01) | DRG 280 ==
LOC: D.ER 10:13 → D.M2 11:03 → D.MS 11:03 → D.M2 04-29 11:32
PROVIDERS: Emergency Medicine; Internal Medicine Interventional Cardiology; ADMIT Family Medicine; ATTEND Family Medicine
PROC: B2131ZZ Fluoroscopy of Multiple Coronary Artery Bypass Grafts using Low Osmolar Contrast (ICD-10-PCS; 2019-04-29)
PROC: B2151ZZ Fluoroscopy of Left Heart using Low Osmolar Contrast (ICD-10-PCS; 2019-04-29)
PROC: 4A023N7 Measurement of Cardiac Sampling and Pressure, Left Heart, Percutaneous Approach (ICD-10-PCS; 2019-04-29)
PROC: B2111ZZ Fluoroscopy of Multiple Coronary Arteries using Low Osmolar Contrast (ICD-10-PCS; principal; 2019-04-29 10:38)
DX: I11.0 Hypertensive heart disease with heart failure (principal); I21.4 Non-ST elevation (NSTEMI) myocardial infarction; J96.01 Acute respiratory failure with hypoxia; J18.9 Pneumonia, unspecified organism; I48.92 Unspecified atrial flutter; J98.11 Atelectasis; I50.23 Acute on chronic systolic (congestive) heart failure; E03.9 Hypothyroidism, unspecified; I48.0 Paroxysmal atrial fibrillation; I25.10 Atherosclerotic heart disease of native coronary artery without angina pectoris; E78.5 Hyperlipidemia, unspecified

== ENCOUNTER → 2019-05-08 16:15 | Outpatient (CLI) | payer MEDICARE ==
[2019-04-29 13:01] VITALS: BMI 25.8
[~2019-05-08 16:15] MED LIST changes: +ALDACTONE25 MG PO; +METOPROLOL TART50 MG PO
== END | disposition home or self-care (01) ==
LOC: D.RAD 16:15
PROVIDERS: ATTEND Family Medicine
DX: R06.00 Dyspnea, unspecified (principal)

== ENCOUNTER → 2019-05-13 18:50 | Outpatient (CLI) | payer MEDICARE ==
[2019-04-29 13:01] VITALS: BMI 25.8
[2019-05-13 20:49] LABS: ANION GAP 15.8 mmol/L (8-16); CALCIUM 9.2 mg/dL (8.5-10.1); CARBON DIOXIDE 23.4 mmol/L (21.0-32.0); CREATININE - SERUM 1.5 mg/dL (0.6-1.3); POTASSIUM - SERUM 4.2 mmol/L (3.5-5.1)
== END | disposition home or self-care (01) ==
LOC: D.LABREF 18:50
PROVIDERS: ATTEND Internal Medicine Pulmonary Disease
DX: I50.22 Chronic systolic (congestive) heart failure (principal); J90 Pleural effusion, not elsewhere classified

== ENCOUNTER → 2019-06-19 10:49 | Outpatient (CLI) | payer MEDICARE ==
[2019-04-29 13:01] VITALS: BMI 25.8
== END | disposition home or self-care (01) ==
LOC: D.RT 10:49 → D.RAD 14:45 → D.RT 15:00
PROVIDERS: ATTEND Internal Medicine Pulmonary Disease
DX: R06.2 Wheezing (principal); I50.22 Chronic systolic (congestive) heart failure

== ENCOUNTER 2019-08-31 22:34 | Inpatient (IN) | payer MEDICARE ==
[~2019-08-31] VITALS: Ht 177.8 cm; Wt 79.4 kg
--- NOTE | ~2019-08-31 | HEMODYNAMI ---
PATIENT:JERONIMO CLARKE MEDICAL RECORD: [id number] : 40 [id number] ADMISSION DATE: 08/31/19 Generatedon:09/02/201913:46 Patient name: JERONIMO CLARKE Patient #: [id number] SSN : [id number] : 1940 Date of study: 09/02/2019 Page: Of Hemodynamic Procedure Report Patient Data Patient Demographics Procedure consent was obtained First Name: JERONIMO Gender: Male Last Name: TRICIA : 1940 [facility] Initial: E Age: 78 year(s) Patient #: [id number] Race: SSN: [id number] Additional ID: [id number] Contact details Address: [address] [place] [address] State: [place] City: [facility] Zip code: [address] Past Medical History History of disease Date Diagnosis Comments CAD Allergies Allergen Reaction Date Comments Reported Penicillins 12/17/2015 Statins 12/17/2015 Other allergy 01/20/2016 CIPROFLOXACIN, COREG, FOSAMAX, LISINOPRIL, MEXITIL, PLAVIX, QUINIDINE, RYTHMOL Other allergy 07/14/2018 PRAVASTATIN, QUININDINE, ALENDNONATE SODIUM, CARVEDILOL, CIPNOFLOXACIN, PCN, LISINOPRIL, MEXILETINE, PROPAFENONE, NBLVTU-AVN-PUD REDUCTASE INHINITORS, CLOPIDOGREL. Other allergy 03/05/2019 FOSAMAX,COREG, CIPROFLOACIN, PCN, STATINS, PLAVIX, LISINOPRIL, MEXITIL, PRAVASTATIN, RYHTMOL, QUINIDINE Other allergy 03/21/2019 PCN/CARVEDILOL/ SEE LIST Other allergy 04/29/2019 PCN, STATINS/QUINIDINE/ MORE SEE LIST Other allergy 09/01/2019 Other allergy 09/02/2019 catfish,pcn/nuts Admission Admission Data Admission Date: 08/31/2019 Admission Time: 23:45 Arrival Date: 09/01/2019 Arrival Time: 0:00 Admit Source: Emergency department Room #: [id number] Lab Results Lab Result Date: 09/01/2019 Lab Result Time: 0:00 Biochemistry Name Units Result Min Max BUN mg/dl 20 --(----)*- 7 18 Creatinine mg/dl 1.2 --(---*)-- 0.6 1.3 eGFR ml/min 61.84077 *-(----)-- 90 120 NONAFRICAN CBC Name Units Result Min Max Hematocrit % 43.8 --(*---)-- 42 54 Hemoglobin g/dl 14.2 --(*---)-- 13.5 17.5 Procedure Procedure Types Cath Procedure Diagnostic Procedure PPM/ICD PPM Dual Implant Sedation Charges Moderate Sedation up to 30 minutes Procedure Description Procedure Date Procedure Date: 09/02/2019 Procedure Start Time: 13:12 Procedure End Time: 13:41 Procedure Staff Name Function Bhanu Fitch MD Performing Physician Shira Guthrie RT Monitor Fatimah Deutsch RN Nurse Arleen Otoole RT Scrub Gilda Stinson RT Senior Salesforce Developer Carlos Leos MD Assisting physician Indication Atrial fibrillation Procedure Data Cath Procedure Fluoroscopy Diagnostic fluoroscopy Total fluoroscopy Time: 3.5 time: 3.5 min min Diagnostic fluoroscopy Total fluoroscopy dose: dose: 99.71 mGy 99.71 mGy Contrast Material Contrast Material Type Amount (ml) Isovue 300 0 Estimated blood loss: 10 ml Procedure Complications No complications Procedure Medications Medication Administration Route Dosage 0.9% NaCl I.V. 100 ml/hr Oxygen etCO2 Nasal cannula 2 l/min Lidocaine 1% added to field 20 Vancomycin Topical 1 g Irrigation Vancomycin I.V.P.B 1 g Versed I.V. 2 mg Fentanyl I.V. 50 mcg Versed I.V. 1 mg Fentanyl I.V. 50 mcg Hemodynamics Rest HGB: 14.2 (g/dl) Heart Rate: 92 (bpm) Snapshots Pre Cath Intra NCS Post Cath Vital Signs Time Heart Resp SPO2 etCO2 NIBP (mmHg) Rhythm Pain Sedation Rate (ipm) (%) (mmHg) Status Level (bpm) 12:24:18 102 18 100 21 180/114(151) ST 0 (11) 10(A) , No pain 12:28:40 102 25 99 19.5 173/130(150) ST 0 (11) 10(A) , No pain 12:32:58 94 24 97 20 158/111(131) NSR 0 (11) 10(A) , No pain 12:37:10 91 18 97 22 150/106(129) NSR 0 (11) 10(A) , No pain 12:41:20 89 17 97 22.3 150/102(125) NSR 0 (11) 10(A) , No pain 12:45:30 91 17 97 24 140/98(120) NSR 0 (11) 10(A) , No pain 12:49:33 86 16 97 26.4 145/100(126) NSR 0 (11) 10(A) , No pain 12:53:39 85 17 97 25.8 142/98(120) NSR 0 (11) 10(A) , No pain 12:57:43 85 18 97 24.7 145/101(124) NSR 0 (11) 10(A) , No pain 13:01:49 84 14 97 27.6 144/97(123) NSR 0 (11) 10(A) , No pain 13:05:55 83 13 96 26.8 134/92(117) NSR 0 (11) 10(A) , No pain 13:09:56 82 15 97 26.8 130/93(109) NSR 0 (11) 10(A) , No pain 13:13:56 82 14 97 26.5 134/93(118) NSR 0 (11) 10(A) , No pain 13:17:57 83 16 97 23.7 137/100(118) NSR 0 (11) 10(A) , No pain 13:22:01 100 16 97 25 132/90(118) NSR 0 (11) 9(A) , No pain 13:26:01 95 18 98 26.7 134/98(112) NSR 0 (11) 9(A) , No pain 13:30:03 82 15 98 25.8 133/95(109) NSR 0 (11) 9(A) , No pain 13:34:02 94 16 94 4.5 132/100(120) NSR 0 (11) 9(A) , No pain 13:38:04 83 17 94 0 142/98(122) NSR 0 (11) 9(A) , No pain Medications Time Medication Route Dose Verified Delivered Reason Notes Effectiv eness by by 12:29:06 0.9% NaCl I.V. 100 Bhanu Fatimah used for ml/hr [place] Get procedure MD [place] 12:29:20 Oxygen etCO2 2 Bhanu Fatimah used for Nasal l/min [place] Get procedure cannula MD [place] 12:29:29 Lidocaine added 20ml Bhanu Drummond for local 1% to vial [facility] anesthetic field x 2 MD [place] 12:29:38 Vancomycin Topical 1 g Bhanu Bhanu used for Irrigation [facility] John procedure MD [place] 12:29:48 Vancomycin I.V.P.B 1 g Bhanu Fatimah used for [facility] procedure MD [place] 13:09:21 Versed I.V. 2 mg Bhanu Fatimah for [place] Get sedation MD [place] 13:09:31 Fentanyl I.V. 50 Bhanu Fatimah for mcg [employer] Deutsch sedation MD [place] 13:17:42 Versed I.V. 1 mg Bhanu Fatimah for [place] Get sedation MD [place] 13:17:56 Fentanyl I.V. 50 Bhanu Fatimah for mcg [place] Get sedation raspberry checker Log Time Note 12:08:22 Arleen HERNANDEZ(R) sent for patient. Start room use. 12:10:48 Informed consent obtained and on chart 12:15:55 Indication : Atrial fibrillation 12:16:15 Procedure Status PPM/ Gen Change/ Lead Revision/ Temp. 12:16:25 Time tracking: Regular hours (M-F 7:00 - 5:00) 12:16:32 Plan of Care:Hemodynamics will remain stable., Cardiac rhythm will remain stable., Comfort level will be maintained., Respiratory function will remain adequate., Patient/ family verbilizes understanding of procedure., Procedure tolerated without complication., Recovers from procedure without complications.. 12:17:10 Patient received from CVICU to CCL 3 Alert and oriented. Tansferred to table in Supine position. 12:17:13 Warm blankets applied, and elfego hugger turned on for patient comfort. 12:17:14 Correct patient and procedure confirmed by team. 12:17:15 ECG and BP/O2 sat monitors applied to patient. 12:23:09 Vital chart was started 12:23:10 Baseline sample Acquired. 12::17 Rhythm: paced 12:23:21 Full Disclosure recording started 12::23 - 12:23:29 H&P Date Dictated: 09/02/2019 Within 30 days and on chart.. 12:23:31 Pre-procedure instructions explained to patient. 12:23:32 Pre-op teaching completed and patient verbalized understanding. 12:23:37 Family unavailable. 12:23:49 Patient NPO since Breakfast. 12:24:29 Patient allergic to Other allergycatfish,pcn/nuts 12:24:34 Is the patient allergic to Iodine/contrast media? No. 12:24:37 Is patient on blood thinner?Yes 12:24:44 ACC The patient was administered the following blood thiners within the last 24 hours: ACCEffient, Sadafrelto 12:24:48 Patient diabetic? No. 12:24:55 ----Pre-sedation anethsthesia assessment.---- 12:25:00 Previous problem with sedation/anesthesia? No ? 12:25:03 Snore? Yes 12:25:05 Sleep apnea? No 12:25:08 Deviated septum? Unknown 12:25:11 Opens mouth fully? Yes 12:25:13 Sticks out tongue? Yes 12:25:17 Airway obstruction? No ? 12:25:38 Dentures? No ? 12:26:06 IV patent on arrival in left forearm with 0.9% NaCl at [facility]. 12:26:26 Lab results completed and on chart. 12::38 Left chest area was prepped with chlora-prep and draped in sterile fashion 12:26:40 Alarms reviewed by R. N. 12:26:40 Sharps counted by scrub and verified by R.N. 12:26:53 Use device set AMANDA PPM 12:26:59 2-0 Ticron Multipack ([id number]) opened to sterile field. 12:27:00 3-0 Vicryl Single Pack [id number] opened to sterile field. 12:27:01 5-0 Monocryl PS2 [id number] opened to sterile field. 12:27:01 Cautery Tip Yard Jockey opened to sterile field. 12:27:03 Cautery Pushbutton Pencil opened to sterile field. 12:27:04 Mepilex Dressing (171306) opened to sterile field. 12:29:06 0.9% NaCl 100 ml/hr I.V. was administered by Fatimah Deutsch RN; used for procedure; Verbal order read back and verified. 12:29:20 Oxygen 2 l/min etCO2 Nasal cannula was administered by Fatimah Deutsch RN ; used for procedure; Verbal order read back and verified. 12:29:29 Lidocaine 1% 20ml vial x 2 added to field was administered by Bhanu Virk MD; for local anesthetic; Verbal order read back and verified. 12:29:38 Vancomycin Irrigation 1 g Topical was administered by Bhanu Fitch MD; used for procedure; Verbal order read back and verified. 12:29:48 Vancomycin 1 g I.V.P.B was administered by Fatimah Deutsch RN; used for procedure; Verbal order read back and verified. 12:30:00 Medtronic insurance service representative JOSELUIS ROBLERO present for procedure. 12:30:22 Pre sharps counted by scrub and verified by RN: Sutures: 7; Sponges: 5; Stick needles: 2; Skin needles: 2; Blade: 1; Cautery: 1 12:30:32 Grounding pad site Left thigh. 12:30:34 Grounding pad site free from injury. 12:49:10 Medtronic 4074-52 PPM Lead opened to sterile field. 12:49:12 Medtronic 4574-45 PPM Lead opened to sterile field. 12:51:[address] Generator [id number] opened to sterile field. 12:57:34 Physician responded to page. 13:08:04 Physician arrived 13:08:05 --------ALL STOP TIME OUT------ 13:08:06 Final Timeout: patient, procedure, and site verified with staff and physician. All members of the team are in agreement. 13:08:13 Left chest site verified by team. 13:08:20 Fire Safety Assessment: A--An alcohol-based skin anteseptic being used preoperatively., B--The operative or invasive procedure is being performed above the xiphoid process or in the oropharynx., C--Open oxygen or nitrous oxide is being used., E--There are other possible contributors. 13:08:26 Physical assessment completed. ASA score P 2 - A patient with mild systemic disease as per Bhanu Fitch MD. 13:08:34 Sedation plan: IV Moderate Sedation Medication:Versed, Fentanyl 13:09:21 Versed 2 mg I.V. was administered by Fatimah Deutsch RN; for sedation; Verbal order read back and verified. 13:09:31 Fentanyl 50 mcg I.V. was administered by Fatimah Deutsch RN; for sedation ; Verbal order read back and verified. 13:11:58 Procedure started. 13:12:12 Lidocaine 1% was administered to left subclavicular area by Carlos Leos MD . 13:16:26 Incision made to left subclavicular area. 13:17:07 Generator pocket made/opened. 13:17:12 Left subclavian vein accessed with 7Fr Peel Away Sheath. 13:17:17 Left subclavian vein accessed with 7Fr Peel Away Sheath. 13:17:42 Versed 1 mg I.V. was administered by Fatimah Deutsch RN; for sedation; Verbal order read back and verified. 13:17:56 Fentanyl 50 mcg I.V. was administered by Fatimah Deutsch RN; for sedation ; Verbal order read back and verified. 13:18:12 Ventricular lead inserted and advanced. 13:18:17 Atrial lead inserted and advanced. 13:21:19 Ventricular lead positioned. 13:23:25 Ventricular lead tested. 13:25:06 Atrial lead positioned. 13:25:16 Atrial lead tested. 13:26:47 Peel-a-way sheath was split and removed. 13:26:48 Peel-a-way sheath was split and removed. 13:27:14 PPM Dual was attached to lead(s) and inserted into pocket. 13:27:43 Atrial lead attachment was completed with 2-0 ticron. 13:27:48 Ventricular lead attachment was completed with 2-0 ticron. 13:28:51 PPM Dual was inserted subcutaneously to left chest. 13:29:18 Device pocket was irrigated with Vancomycin. 13:29:50 Subcutaneous closure was completed with 3-0 vicryl plus. 13:29:55 Generator was sutured in place with 2-0 ticron. 13:32:24 Immobilizer Large opened to sterile field. 13:33:35 Parameters-- Generator: Mode: DDDR. Lower Rate: 60bpm. Upper Rate: 120bpm. 13:34:40 Parameters--Ventricular P/R Wave: 5.6mV. Current: 0.3mA; Threshold: 0.3V; Impedence: 1089OHMS. 13:35:25 Parameters--Atrial P/R Wave: 4.0mV. Current: 0.6mA; Threshold: 0.3V; Impedence: 591OHMS. 13:36:40 Lt Chest incision was dressed with Mepilex dressing. 13:36:50 Procedure ended.(Physican Out) 13:38:42 Post sharps counted by scrub and verified by RN: Sutures: 7; Sponges: 5 ; Stick needles: 2; Skin needles: 2; Blade: 1; Cautery: 1 13:39:04 Fluoroscopy time 03.50 minutes. 13:39:11 Fluoroscopy dose: 99.71 mGy 13:39:11 Flurop Dose total: 99.71 13:39:22 Dose Area Product 1421.26 mGy/cm. 13:39:28 Contrast amount:Isovue 300 0ml. 13:39:31 Sharps counted by scrub and verified by R.N. 13:39:45 Post Chest area:stable 13:39:51 Post-procedure physical assessment completed. ASA score P 2 - A patient with mild systemic disease as per Bhanu Fitch MD. 13:39:57 Post procedure rhythm: paced 13:40:01 Estimated blood loss: 10 ml 13:40:03 Post procedure instruction explained to patient.Patient verbalizes understanding. 13:40:26 Patient needs reinforcement of post procedure teaching. 13:40:47 Procedure type changed to Cath procedure, Diagnostic procedure, PPM/ICD , PPM Dual Implant, Sedation Charges, Moderate Sedation up to 30 minutes 13:40:50 Procedure and supply charges have been captured, reviewed, submitted an d are correct. 13:41:20 Procedure Complication : No complications 13:41:23 Vital chart was stopped 13:41:30 Operative report dictated upon procedure completion. 13:41:33 See physician's report for complete and final results. 13:41:39 Report given to CVICU. 13:41:44 Patient transfered to CVICU with Bed. 13:41:47 Procedure ended. 13:41:47 Full Disclosure recording stopped 13:41:52 End room use (Document Last) Device Usage Item Name Manufacture Quantity Catalog Hospital Part Current Minima l Lot# / Number Charge Number Stock Stock Serial# Code 2-0 Ticron Ethicon 1 [id number] [id number] 07961 [id number] 5 Multipack ([id number]) 3-0 Vicryl Ethicon 1 [id number] 108752 [id number] 5 Single Pack [id number] 5-0 Monocryl Ethicon 1 [id number] 096849 065179 109779 5 PS2 Y495G Cautery Tip Microtek 1 [id number] 569074 [id number] 777920 5 [employer] Cautery Microtek 1 [id number] 132493 87869 307759 5 [employer] Pencil Mepilex Cardinal 1 [id number] 724504 200808 087676 5 D[employer] ([id number]) Medtronic Medtronic 1 4074-52 085899 546114 507033 5 [id number] 4074-52 PPM 04-15-2021 Lead Medtronic Medtronic 1 4574-45 398644 830699 260819 5 [id number] 4574-45 PPM 04-04-2021 Lead Medtronic Medtronic 1 [id number] 652256 [id number] [id number] [id number] 12/03/2020 Generator [id number] Immobilizer Cardinal 1 [id number] 819088 930457 164836 5 [facility] Anametrix Signature Audit [place] Stage Time Signature Unsigned Intra-Procedure 09/02/2019 Shira 1:42:14 PM Jerri RT(R) (CV) Intra-Procedure 09/02/2019 Fatimah Deutsch 1:45:24 PM RN Intra-Procedure 09/02/2019 Bhanu Castellano 1:46:30 PM [facility]ose [place] [id number] [place] [address]
--- NOTE | ~2019-08-31 | HEMODYNAMI ---
PATIENT:JERONIMO CLARKE MEDICAL RECORD: [id number] : 40 LOCATION:D. D.2114 [facility]# [id number] ADMISSION DATE: 08/31/19 Generatedon:09/01/201916:00 Patient name: JERONIMO CLARKE Patient #: [id number] SSN : [id number] : 1940 Date of study: 09/01/2019 Page: Of Hemodynamic Procedure Report Patient Data Patient Demographics First Name: JERONIMO Gender: Male Last Name: TRICIA : 1940 [facility] Initial: E Age: 78 year(s) Patient #: [id number] Race: SSN: [id number] Additional ID: [id number] Contact details Address: [address] [place] [address] State: [place] City: [facility] Zip code: [address] Past Medical History History of disease Date Diagnosis Comments CAD Allergies Allergen Reaction Date Comments Reported Penicillins 12/17/2015 Statins 12/17/2015 Other allergy 01/20/2016 CIPROFLOXACIN, COREG, FOSAMAX, LISINOPRIL, MEXITIL, PLAVIX, QUINIDINE, RYTHMOL Other allergy 07/14/2018 PRAVASTATIN, QUININDINE, ALENDNONATE SODIUM, CARVEDILOL, CIPNOFLOXACIN, PCN, LISINOPRIL, MEXILETINE, PROPAFENONE, EZZXLY-XHI-AMA REDUCTASE INHINITORS, CLOPIDOGREL. Other allergy 03/05/2019 FOSAMAX,COREG, CIPROFLOACIN, PCN, STATINS, PLAVIX, LISINOPRIL, MEXITIL, PRAVASTATIN, RYHTMOL, QUINIDINE Other allergy 03/21/2019 PCN/CARVEDILOL/ SEE LIST Other allergy 04/29/2019 PCN, STATINS/QUINIDINE/ MORE SEE LIST Other allergy 09/01/2019 Admission Admission Data Admission Date: 08/31/2019 Admission Time: 23:45 Arrival Date: 09/01/2019 Arrival Time: 0:00 Admit Source: Emergency department Room #: D.2114 Lab Results Lab Result Date: 09/01/2019 Lab Result Time: 0:00 Biochemistry Name Units Result Min Max BUN mg/dl 20 --(----)*- 7 18 Creatinine mg/dl 1.2 --(---*)-- 0.6 1.3 eGFR ml/min 61.02756 *-(----)-- 90 120 NONAFRICAN CBC Name Units Result Min Max Hematocrit % 43.8 --(*---)-- 42 54 Hemoglobin g/dl 14.2 --(*---)-- 13.5 17.5 Procedure Procedure Types Cath Procedure Diagnostic Procedure Temporary Pacemaker Sedation Charges Moderate Sedation up to 30 minutes Procedure Description Procedure Date Procedure Date: 09/01/2019 Procedure Start Time: 15:46 Procedure End Time: 15:59 Procedure Staff Name Function Keagan Griffiths MD Performing Physician Yaritza Hunter RT Monitor Mark Maradiaga RN Nurse Arleen Otoole RT Scrub Indication Bradycardia Procedure Data Cath Procedure Fluoroscopy Diagnostic fluoroscopy Total fluoroscopy Time: 0.6 time: 0.6 min min Diagnostic fluoroscopy Total fluoroscopy dose: 26 dose: 26 mGy mGy Entry Location Entry Primary Successful Side Size Upsize Upsize Entry Closure Succes sful Closure Location (Fr) 1 (Fr) 2 (Fr) Remarks Device Remarks Femoral Right 6 Fr Sheath vein Short sutured in place Estimated blood loss: 10 ml Procedure Complications No complications Procedure Medications Medication Administration Route Dosage Oxygen etCO2 Nasal cannula 2 l/min Lidocaine 2% added to field 20 Versed I.V. 1 mg Hemodynamics Rest HGB: 14.2 (g/dl) Heart Rate: 88 (bpm) Snapshots Pre Cath Intra NCS Post Cath Vital Signs Time Heart Resp SPO2 etCO2 NIBP (mmHg) Rhythm Pain Sedation Rate (ipm) (%) (mmHg) Status Level (bpm) 15:32:34 87 14 98 0 160/108(145) NSR 0 (11) 10(A) , No pain 15:36:50 81 11 98 0 150/103(129) NSR 0 (11) 10(A) , No pain 15:41:04 81 18 97 23.3 159/104(147) NSR 0 (11) 10(A) , No pain 15:45:20 83 16 98 18.7 151/99(125) NSR 0 (11) 10(A) , No pain 15:49:36 88 17 98 27 142/89(123) NSR 0 (11) 10(A) , No pain 15:53:46 81 17 98 27 143/96(120) NSR 0 (11) 10(A) , No pain 15:57:56 80 17 97 24.7 143/97(124) NSR 0 (11) 10(A) , No pain Medications Time Medication Route Dose Verified Delivered Reason Notes Effectiv eness by by 15:32:16 Oxygen etCO2 2 Keagan Whitfieldie used for Nasal l/min Tunde Maradiaga RN procedure cannula 15:32:22 Lidocaine added 20ml Keagan Boogie for local 2% to vial Tunde Griffiths MD anesthetic field 15:38:38 Versed I.V. 1 mg Keagan Whitfieldie for Tunde Maradiaga RN sedation Procedure Log Time Note 15:13:52 Arrival Date: 09/01/2019 12:00:00 AM 15:13:54 Admit Source: Emergency department 15:15:20 Diagnostic Cath Status : Emergency 15:15:46 Indication : Bradycardia 15:16:13 Time tracking: Call back (After hours or weekends) 15:16:15 Mark Maradiaga RN sent for patient. Start room use. 15:16:20 Procedure Status PPM/ Gen Change/ Lead Revision/ Temp. 15:16:25 Patient received from ED to CCL 1 Alert and oriented. Tansferred to table in Supine position. 15:16:26 Warm blankets applied, and elfego hugger turned on for patient comfort. 15:16:27 Correct patient and procedure confirmed by team. 15:16:33 H&P Date Dictated: 09/01/2019 Emergent; H&P N/A. 15:16:34 Pre-procedure instructions explained to patient. 15:16:42 Family in patients room. 15:16:44 Patient NPO since Midnight. 15:16:55 Patient allergic to Other allergy 15:16:59 Is the patient allergic to Iodine/contrast media? N/A. 15:17:01 Was the patient premedicated? N/A 15:17:03 Is patient on blood thinner?Yes 15:17:09 Patient diabetic? N/A. 15:17:16 Snore? Yes 15:17:21 Dentures? N/A ? 15:17:30 IV patent on arrival in right forearm with 0.9% NaCl at [facility]. 15:17:34 Lab results completed and on chart. 15:17:38 Right groin area was prepped with chlora-prep and draped in sterile fashion 15:17:39 Alarms reviewed by R. N. 15:17:39 Sharps counted by scrub and verified by R.N. 15:17:40 Physician paged 15:30:25 Plan of Care:Hemodynamics will remain stable., Cardiac rhythm will remain stable., Comfort level will be maintained., Respiratory function will remain adequate., Patient/ family verbilizes understanding of procedure., Procedure tolerated without complication., Recovers from procedure without complications.. 15:31:14 Physician arrived 15:31:22 Patient received from Med II to CCL 1 Alert and oriented. Tansferred to table in Supine position. 15:31:23 ECG and BP/O2 sat monitors applied to patient. 15:31:24 Baseline sample Acquired. 15:31:24 Vital chart was started 15:31:47 ----Pre-sedation anethsthesia assessment.---- 15:31:48 Previous problem with sedation/anesthesia? N/A ? 15:31:51 Previous problem with sedation/anesthesia? No ? 15:31:54 Sleep apnea? No 15:31:55 Deviated septum? No 15:31:56 Opens mouth fully? Yes 15:31:57 Sticks out tongue? Yes 15:31:59 Airway obstruction? No ? 15:32:10 Patient pain scale 0/10 ?. 15:32:16 Oxygen 2 l/min etCO2 Nasal cannula was administered by Mark Maradiaga RN; used for procedure; Verbal order read back and verified. 15:32:22 Lidocaine 2% 20ml vial added to field was administered by Keagan Griffiths MD; for local anesthetic; Verbal order read back and verified. 15:35:12 Lab Result : Creatinine 1.2 mg/dl 15:35:12 Lab Result : BUN 20 mg/dl 15:35:12 Lab Result : eGFR NONAFRICAN 61.07204 ml/min 15:35:12 Lab Result : Hemoglobin 14.2 g/dl 15:35:12 Lab Result : Hematocrit 43.8 % 15:35:20 Pre procedure: right dorsailis pedis pulse 2+ Normal; easily identifiable; not easily obliterated 15:35:26 Stress Test: no; N/A ? 15:37:00 Rhythm: sinus rhythm , 3rd degree heart block 15:37:49 ACC The patient was administered the following blood thiners within the last 24 hours: ACCEffient, Eliquis 15:37:54 --------ALL STOP TIME OUT------ 15:37:55 Final Timeout: patient, procedure, and site verified with staff and physician. All members of the team are in agreement. 15:37:59 Right groin site verified by team. 15:38:02 Fire Safety Assessment: A--An alcohol-based skin anteseptic being used preoperatively., C--Open oxygen or nitrous oxide is being used., D--An ESU, laser, or fiber-optic light is being used. 15:38:06 Physical assessment completed. ASA score P 2 - A patient with mild systemic disease as per Keagan Griffiths MD. 15:38:10 2) 60-89 Mildly reduced kidney function, and other findings (as for stage 1) point to kidney disease. 15:38:25 Maximum allowable contrast dose (3.7 X eGFR X 0.75)172 ml. 15:38:29 Sedation plan: IV Moderate Sedation Medication:Versed, Fentanyl 15:38:38 Versed 1 mg I.V. was administered by Mark Maradiaga RN; for sedation; Verbal order read back and verified. 15:38:39 Use device set Temporary Pacemaker 15:38:47 Use device set Femoral Dx 15:38:54 Medline Cath Pack ([id number]) opened to sterile field. 15:42:23 Procedure started. 15:42:23 Full Disclosure recording started 15:43:37 SHEATH 6FR Clark ([id number]) opened to sterile field. 15:43:40 2-0 Silk 685H opened to sterile field. 15:43:40 5Fr J Tip Temporary Pacing Catheter ([id number]) opened to sterile field. 15:46:23 Local anesthetic to right femoral vein with Lidocaine 2% by Keagan Griffiths MD.INITIAL ACCESS ONLY 15:46:37 A 6 Fr Short sheath was inserted into the Right Femoral vein 15:46:48 --------Temp Pacer------- 15:48:00 Temporary pacer inserted 15:51:13 Temporary pacer turned on with the following settings: Rate 50, MA 5, Mode: Demand. 15:55:14 Sheath removed intact; hemostasis achieved with Sheath sutured in place to the Right Femoral vein. 15:55:16 Procedure ended.(Physican Out) 15:55:43 Fluoroscopy time 00.60 minutes. 15:55:50 Fluoroscopy dose: 26 mGy 15:55:50 Flurop Dose total: 26 15:55:59 Dose Area Product 2072 mGy/cm. 15:56:02 Sharps counted by scrub and verified by R.N. 15:56:17 femoral sheath for temp pacer was sutured in with 2-0 silk. 15:56:31 Post-op/insertion site Right Femoral vein dressed using a 4 x 4 and Tegaderm. 15:56:33 Post Procedure Pulses reassessed and unchanged 15:56:36 Post procedure: right dorsailis pedis pulse 2+ Normal; easily identifiable; not easily obliterated. 15:56:39 Post-procedure physical assessment completed. ASA score P 2 - A patient with mild systemic disease as per Keagan Griffiths MD. 15:56:46 Post procedure rhythm: sinus rhythm 15:56:49 Estimated blood loss: 10 ml 15:56:51 Post procedure instruction explained to patient.Patient verbalizes understanding. 15:56:51 Patient needs reinforcement of post procedure teaching. 15:58:34 Procedure type changed to Cath procedure, Diagnostic procedure, Temporary Pacemaker, Sedation Charges, Moderate Sedation up to 30 minutes 15:58:51 Procedure and supply charges have been captured, reviewed, submitted and are correct. 15:58:56 Procedure Complication : No complications 15:58:59 Vital chart was stopped 15:59:06 Operative report dictated upon procedure completion. 15:59:06 See physician's report for complete and final results. 15:59:08 Report given to CVICU. 15:59:12 Patient transfered to CVICU with Bed. 15:59:14 Procedure ended. 15:59:14 Full Disclosure recording stopped 15:59:30 ACC-PCI Only Patient was given prescriptions, or instructed by Keagan Griffiths MD to start/continue the following medications upon discharge: Effient 15:59:32 End room use (Document Last) 15:59:44 End room use (Document Last) 16:00:20 End room use (Document Last) Device Usage Item Name Manufacture Quantity Catalog Hospital Part Current Minimal L ot# / Number Charge Number Stock Stock Serial# Code Medline Medline 1 [id number] 5 Cath Pack ([id number]) SHEATH 6FR Terumo 1 [id number] [id number] [id number] 038505 40 Clark ([id number]) 2-0 Silk Ethicon 1 685H 265935 39608 587706 5 685H 5Fr J Tip Hart 1 [id number] 183510 03240 [id number] 2 Temporary Lifesciences Pacing Catheter ([id number]) Signature Audit [place] Stage Time Signature Unsigned Intra-Procedure 09/01/2019 Yaritza Hunter 3:59:45 PM RT(R) Intra-Procedure 09/01/2019 Mark Maradiaga RN 4:00:20 PM Intra-Procedure 09/01/2019 Keagan Griffiths MD 4:00:42 PM [facility] [address] [place] [address]
--- NOTE | ~2019-08-31 | HEMODYNAMI ---
PATIENT:JERONIMO CLARKE MEDICAL RECORD: [id number] : 40 LOCATION:JAYME [facility]au[facility] [facility]# [id number] ADMISSION DATE: 08/31/19 Generatedon:09/02/201918:43 Patient name: JERONIMO CLARKE Patient #: [id number] SSN : [id number] : 1940 Date of study: 09/02/2019 Page: Of Hemodynamic Procedure Report Patient Data Patient Demographics Procedure consent was obtained First Name: JERONIMO Gender: Male Last Name: TRICIA : 1940 [facility] Initial: E Age: 78 year(s) Patient #: [id number] Race: SSN: [id number] Additional ID: [id number] Contact details Address: [address] [place] [address] State: [place] City: [facility] Zip code: [address] Past Medical History History of disease Date Diagnosis Comments CAD Allergies Allergen Reaction Date Comments Reported Penicillins 12/17/2015 Statins 12/17/2015 Other allergy 01/20/2016 CIPROFLOXACIN, COREG, FOSAMAX, LISINOPRIL, MEXITIL, PLAVIX, QUINIDINE, RYTHMOL Other allergy 07/14/2018 PRAVASTATIN, QUININDINE, ALENDNONATE SODIUM, CARVEDILOL, CIPNOFLOXACIN, PCN, LISINOPRIL, MEXILETINE, PROPAFENONE, FRQHDX-SAL-PUP REDUCTASE INHINITORS, CLOPIDOGREL. Other allergy 03/05/2019 FOSAMAX,COREG, CIPROFLOACIN, PCN, STATINS, PLAVIX, LISINOPRIL, MEXITIL, PRAVASTATIN, RYHTMOL, QUINIDINE Other allergy 03/21/2019 PCN/CARVEDILOL/ SEE LIST Other allergy 04/29/2019 PCN, STATINS/QUINIDINE/ MORE SEE LIST Other allergy 09/01/2019 Other allergy 09/02/2019 PCN, STATINS, ALENDRONATE SODIUM, CARVEDILOL, CIPROFLOXACIN, PLAVIX, LISINOPRIL, MEXILITINE, PROPAFENONE, SOTALOL, QUINIDINE, Admission Admission Data Admission Date: 08/31/2019 Admission Time: 23:45 Arrival Date: 09/01/2019 Arrival Time: 0:00 Admit Source: Emergency department Room #: D.CV03 Lab Results Lab Result Date: 09/01/2019 Lab Result Time: 0:00 Biochemistry Name Units Result Min Max BUN mg/dl 20 --(----)*- 7 18 Creatinine mg/dl 1.2 --(---*)-- 0.6 1.3 eGFR ml/min 61.63474 *-(----)-- 90 120 NONAFRICAN CBC Name Units Result Min Max Hematocrit % 43.8 --(*---)-- 42 54 Hemoglobin g/dl 14.2 --(*---)-- 13.5 17.5 Procedure Procedure Types Cath Procedure Diagnostic Procedure PPM/ICD Permanent Pacer Lead Repos. Sedation Charges Moderate Sedation up to 30 minutes Procedure Description Procedure Date Procedure Date: 09/02/2019 Procedure Start Time: 18:14 Procedure End Time: 18:42 Procedure Staff Name Function Bhanu Fitch MD Performing Physician Gilda Stinson RT Monitor Arleen Otoole RT Scrub Fatimah Deutsch RN Nurse Arcenio Hernandez MD Assisting physician Shira Guthrie RT Operating Room Tech Procedure Data Cath Procedure Fluoroscopy Diagnostic fluoroscopy Total fluoroscopy Time: 2.1 time: 2.1 min min Diagnostic fluoroscopy Total fluoroscopy dose: dose: 73.21 mGy 73.21 mGy Estimated blood loss: 10 ml Procedure Complications No complications Procedure Medications Medication Administration Route Dosage 0.9% NaCl I.V. 100 ml/hr Oxygen etCO2 Nasal cannula 2 l/min Lidocaine 1% added to field 20 Vancomycin Topical 1 g Irrigation Versed I.V. 1 mg Fentanyl I.V. 50 mcg Hemodynamics Rest HGB: 14.2 (g/dl) Heart Rate: 85 (bpm) Snapshots Pre Cath Intra NCS Post Cath Vital Signs Time Heart Resp SPO2 etCO2 NIBP (mmHg) Rhythm Pain Sedation Rate (ipm) (%) (mmHg) Status Level (bpm) 17:50:24 96 22 96 8.9 161/110(137) NSR 0 (11) 10(A) , No pain 17:54:42 90 15 96 0 156/98(122) NSR 0 (11) 10(A) , No pain 17:58:56 89 15 96 10.4 152/96(126) NSR 0 (11) 10(A) , No pain 18:03:08 87 16 96 1.4 148/94(118) NSR 0 (11) 10(A) , No pain 18:07:22 86 17 96 1.4 148/88(122) NSR 0 (11) 10(A) , No pain 18:11:34 86 16 96 1.4 145/95(120) NSR 0 (11) 10(A) , No pain 18:15:44 88 16 95 16.4 156/101(138) NSR 0 (11) 10(A) , No pain 18:19:57 76 17 95 3.7 150/99(132) NSR 0 (11) 9(A) , No pain 18:24:09 90 19 96 4.4 155/102(125) NSR 0 (11) 9(A) , No pain 18:28:23 101 21 97 5.9 158/105(134) Paced 0 (11) 9(A) , No pain 18:32:38 89 18 96 4.4 156/101(132) Paced 0 (11) 9(A) , No pain 18:36:52 89 22 96 7.4 160/109(142) Paced 0 (11) 10(A) , No pain 18:41:07 90 19 96 2.9 161/109(137) Paced 0 (11) 10(A) , No pain Medications Time Medication Route Dose Verified Delivered Reason Notes Effective ness by by 17:49:50 0.9% NaCl I.V. 100 Bhanu Fatimah used for ml/hr [place] Get procedure MD [place] 17:49:59 Oxygen etCO2 2 Bhanu Fatimah used for Nasal l/min [place] procedure cannula MD [place] 17:50:07 Lidocaine added 20ml Bhanu Fatimah used for 1% to vial Little Get procedure field x 2 MD [place] 17:50:19 Vancomycin Topical 1 g Bhanu Fatimah used for Irrigation Little Get procedure MD [place] 18:12:58 Versed I.V. 1 mg Bhanu Fatimah for Little Get sedation MD RN 18:13:04 Fentanyl I.V. 50 Bhanu Sheridan for [facility] Deutsch sedation MD [place] Log Time Note 17:14:13 Informed consent obtained and on chart 17:15:32 Procedure Status Urgent Heart Cath (IP). 17:15:37 Time tracking: Call back (After hours or weekends) 17:15:46 Plan of Care:Hemodynamics will remain stable., Cardiac rhythm will remain stable., Comfort level will be maintained., Respiratory function will remain adequate., Patient/ family verbilizes understanding of procedure., Procedure tolerated without complication., Recovers from procedure without complications.. 17:18:08 H&P Date Dictated: 09/02/2019 H&P Addendum completed by physician on day of procedure. (MUST COMPLETE FOR ALL OUTPATIENTS). 17:29:42 Patient allergic to Other allergyPCN, STATINS, ALENDRONATE SODIUM, CARVEDILOL, CIPROFLOXACIN, PLAVIX, LISINOPRIL, MEXILITINE, PROPAFENONE, SOTALOL, QUINIDINE, 17:29:45 Is the patient allergic to Iodine/contrast media? No. 17:29:46 Was the patient premedicated? N/A 17:30:02 Full Disclosure recording started 17:36:05 Gilda Stinson RT(R) sent for patient. Start room use. 17:39:33 Is patient on blood thinner?Yes 17:39:40 ACC The patient was administered the following blood thiners within the last 24 hours: ACCEffient, Xarelto 17:39:45 Patient diabetic? No. 17:39:51 ----Pre-sedation anethsthesia assessment.---- 17:39:56 Previous problem with sedation/anesthesia? No ? 17:39:59 Snore? Yes 17:40:56 Sleep apnea? No 17:41:00 Deviated septum? Unknown 17:41:03 Opens mouth fully? Yes 17:41:05 Sticks out tongue? Yes 17:41:09 Airway obstruction? No ? 17:41:13 Dentures? No ? 17:41:25 IV patent on arrival in left forearm with 0.9% NaCl at [facility]. 17:41:53 Patient received [facility] CVICU to [facility] 3 Alert and oriented. Tansferred to table in Supine position. 17:49:15 Vital chart was started 17:49:50 0.9% NaCl 100 ml/hr I.V. was administered by Fatimah Deutsch RN; used for procedure; Verbal order read back and verified. 17:49:59 Oxygen 2 l/min etCO2 Nasal cannula was administered by Fatimah Deutsch RN; used for procedure; Verbal order read back and verified. 17:50:00 Warm blankets applied, and elfego hugger turned on for patient comfort. 17:50:01 Correct patient and procedure confirmed by team. 17:50:02 ECG and BP/O2 sat monitors applied to patient. 17:50:04 Baseline sample Acquired. 17:50:07 Lidocaine 1% 20ml vial x 2 added to field was administered by Fatimah Deutsch RN; used for procedure; Verbal order read back and verified. 17:50:14 Rhythm: paced 17:50:19 Vancomycin Irrigation 1 g Topical was administered by Fatimah Deutsch RN; used for procedure; Verbal order read back and verified. 17:51:54 Pre-procedure instructions explained to patient. 17:51:54 Pre-op teaching completed and patient verbalized understanding. 17:52:00 Family in patients room. 17:52:01 Patient NPO since Midnight. 17:52:14 Left chest area was prepped with chlora-prep and draped in sterile fashion 17:52:15 Alarms reviewed by R. N. 17:52:16 Sharps counted by scrub and verified by R.N. 17:52:31 [employer] senior account representative JOSELUIS ROBLERO present for procedure. 17:53:00 Pre sharps counted by scrub and verified by RN: Sutures: 7; Sponges: 5; Stick needles: 2; Skin needles: 0; Blade: 0; Cautery: 1 17:53:03 Grounding pad site Left thigh. 17:53:04 Grounding pad site free from injury. 18:00:01 Atrial lead inserted and advanced. 18:09:06 --------ALL STOP TIME OUT------ 18:09:09 Final Timeout: patient, procedure, and site verified with staff and physician. All members of the team are in agreement. 18:09:15 Left chest site verified by team. 18:09:18 Fire Safety Assessment: A--An alcohol-based skin anteseptic being used preoperatively., B--The operative or invasive procedure is being performed above the xiphoid process or in the oropharynx., C--Open oxygen or nitrous oxide is being used. 18:09:22 Physical assessment completed. ASA score P 3 - A patient with severe systemic disease as per Bhanu Fitch MD. 18:09:26 Sedation plan: IV Moderate Sedation Medication:Versed, Fentanyl 18:12:35 Procedure started. 18:12:58 Versed 1 mg I.V. was administered by Fatimah Deutsch RN; for sedation; Verbal order read back and verified. 18:13:04 Fentanyl 50 mcg I.V. was administered by Fatimah Deutsch RN; for sedation; Verbal order read back and verified. 18:14:39 Lidocaine 1% was administered to left subclavicular area by Bhanu Fitch MD . 18:14:53 Incision made to left subclavicular area. 18:17:48 Device pocket was reopened. 18:18:59 Ventricular lead dislodged. 18:19:02 Ventricular lead repositioned. 18:21:57 Ventricular lead tested. 18:22:36 Atrial lead tested. 18:23:30 Ventricular lead attachment was completed with 2-0 ticron. 18:23:35 Atrial lead attachment was completed with 2-0 ticron. 18:26:58 Generator was sutured in place with 2-0 ticron. 18:27:54 Device pocket was irrigated with Vancomycin. 18:29:32 Subcutaneous closure was completed with 3-0 vicryl. 18:34:33 Skin closure was completed with 5-0 monocryl. 18:38:02 Lt Chest incision was dressed with Mepilex dressing. 18:38:15 Procedure ended.(Physican Out) 18:38:39 Fluoroscopy time 02.10 minutes. 18:38:45 Fluoroscopy dose: 73.21 mGy 18:38:45 Flurop Dose total: 73.21 18:39:01 Dose Area Product 951.60 mGy/cm. 18:39:06 Sharps counted by scrub and verified by R.N. 18:39:10 Post-procedure physical assessment completed. ASA score P 3 - A patient with severe systemic disease as per Bhanu Fitch MD. 18:39:13 Post procedure rhythm: paced 18:39:16 Estimated blood loss: 10 ml 18:39:18 Post procedure instruction explained to patient.Patient verbalizes understanding. 18:39:18 Patient needs reinforcement of post procedure teaching. 18:41:04 Procedure type changed to Cath procedure, Diagnostic procedure, PPM/ICD, Permanent Pacer Lead Repos., Sedation Charges, Moderate Sedation up to 30 minutes 18:41:21 Use device set AMANDA PPM 18:41:22 2-0 Ticron Multipack ([id number]) opened to sterile field. 18:41:22 3-0 Vicryl Single Pack [id number] opened to sterile field. 18:41:23 5-0 Monocryl PS2 [id number] opened to sterile field. 18:41:24 Cautery Tip Sales Porter opened to sterile field. 18:41:24 Cautery Pushbutton Pencil opened to sterile field. 18:41:25 Mepilex Dressing ([id number]) opened to sterile field. 18:41:48 Procedure and supply charges have been captured, reviewed, submitted and are correct. 18:41:51 Procedure Complication : No complications 18:41:54 Vital chart was stopped 18:42:01 Operative report dictated upon procedure completion. 18:42:01 See physician's report for complete and final results. 18:42:03 Report given to CVICU. 18:42:05 Patient transfered to CVICU with Bed. 18:42:07 Procedure ended. 18:42:07 Full Disclosure recording stopped 18:42:12 End room use (Document Last) 18:42:22 End room use (Document Last) 18:42:58 End room use (Document Last) Device Usage Item Name Manufacture Quantity Catalog Hospital Part Current Minimal Lot# / Number Charge Number Stock Stock Serial# Code 2-0 Ticron Ethicon 1 [id number] 104514 94576 [id number] 5 Multipack ([id number]) 3-0 Vicryl Ethicon 1 [id number] 521918 846188 310390 5 Single Pack [id number] 5-0 Monocryl Ethicon 1 [id number] 173477 826887 126652 5 PS2 Y495G Cautery Tip Microtek 1 [id number] 396704 238732 351970 5 [employer] Cautery Microtek 1 [id number] 131598 76455 940683 5 [employer] Pencil Mepilex Cardinal 1 [id number] 098029 166079 135552 5 [facility] ([id number]) Signature Audit [place] Stage Time Signature Unsigned Intra-Procedure 09/02/2019 Gilda Stinson 6:42:22 PM RT(R) Intra-Procedure 09/02/2019 Fatimah Deutsch 6:42:58 PM RN Intra-Procedure 09/02/2019 Bhanu Castellano 6:43:26 PM [id number] [place] [address]
--- NOTE | ~2019-08-31 | OP ---
PATIENT NAME: JERONIMO CLARKE MEDICAL RECORD: [id number] :40 LOCATION:[facility] D.CV03 ADMISSION DATE:08/31/19 SURGEON: CARLOS PATEL MD DATE OF OPERATION: 09/02/2019 PREOPERATIVE DIAGNOSIS: Sick sinus syndrome with pauses. POSTOPERATIVE DIAGNOSIS: Sick sinus syndrome with pauses. PROCEDURE: 1. Left subclavian vein dual lead pacemaker placement. 2. Fluoroscopic interpretation. SURGEON: Carlos Patel MD CO-SURGEON: Bhanu Tyler MD REPORT OF PROCEDURE: The patient's left chest was prepped and draped in sterile fashion. A 20 mL of 1% lidocaine with epinephrine was infused into the surrounding tissues. A skin incision was made on the left superior lateral chest and a subcutaneous pouch was made over the pectoral fascia. The needles were used to cannulate the left subclavian vein and guidewires were advanced times 2. Fluoro was used to note that the wires were in good position in the venous system. Dilator trocar devices were placed over the wires and the wires and dilators were removed. The leads were advanced through the trocars until they rested in the superior vena cava. At this point, Dr. Tyler positioned the leads appropriately in the atrium and ventricle. Once the leads were noted to be functioning appropriately, then they were sutured into place with 2-0 TiCron. The leads were affixed to the pacemaker, which was placed into the subcutaneous pouch and sutured to the pectoral fascia with a single interrupted 2-0 Ti-Cron. The wound was irrigated out with antibiotic solution. The subcutaneous tissues were reapproximated with interrupted 3-0 Vicryl and the skin was closed with running subcutaneous 5-0 Monocryl. COMPLICATIONS: None. CONDITION: Stable. ANESTHESIA: Local MAC. BLOOD LOSS: Minimal. TRANSINT:[id number] Voice Confirmation ID: [id number] DOCUMENT ID: [id number] CARLOS PATEL MD CC: [id number] DICTATION DATE: 09/02/19 1339 COMPUTER ENGINEERING PROFESSOR: 09/02/192226 ADM IN [id number] [place] [address]
[2019-08-31] MEDS ORDERED: XARELTO15 MG PO (22:45)
[2019-08-31] MEDS ORDERED: EFFIENT10 MG PO (22:46)
[2019-08-31 23:09] LABS: BASOPHILS 0.7 % (0-2); EOSINOPHILS 2.5 % (0-7); HEMATOCRIT 47.1 % (42.0-54.0); HEMOGLOBIN 15.1 g/dL (13.5-17.5); LYMPHOCYTES 48.9 % (15-50); MCH 29.3 pg (26.0-34.0); MCHC 32.1 g/dL (31.0-37.0); MCV 91.3 fL (80.0-100.0); MEAN PLATELET VOLUME 9.9 fL (7.4-10.4); MONOCYTES 6.7 % (2-11); NEUTROPHILS 41.2 % (40-80); PLATELET COUNT 191 10x3/uL (130-400); RBC 5.16 10x6/uL (4.20-6.10); RDW 17.3 % (11.5-14.5); WBC 7.1 10x3/uL (4.8-10.8)
[2019-08-31 23:18] LABS: CALC OSMOLALITY 281 mosm/kg (275-300); CALCIUM 9.6 mg/dL (8.5-10.1); CARBON DIOXIDE 26.2 mmol/L (21.0-32.0); CHLORIDE - SERUM 104 mmol/L (98-107); CREATININE - SERUM 1.4 mg/dL (0.6-1.3); GLUCOSE 106 mg/dL (74-106); POTASSIUM - SERUM 3.4 mmol/L (3.5-5.1); SODIUM 140 mmol/L (136-145); UREA NITROGEN 21 mg/dL (7-18); eGFR NON AFRICAN AMERICAN 52 mL/min (90-120)
[2019-08-31 23:21] LABS: APTT 39.6 SECONDS (22.8-39.4); INR 3.38 (0.85-1.17); PROTIME 33.5 SECONDS (11.6-15.0)
[2019-08-31 23:33] LABS: ALBUMIN 4.2 g/dL (3.4-5.0); ALKALINE PHOSPHATASE 82 U/L (30-120); ALT (SGPT) 36 U/L (10-68); BILIRUBIN - TOTAL 0.76 mg/dL (0.2-1.3); CKMB 2.6 U/L (0.0-3.6); CREATINE KINASE 113 UL (21-232); MAGNESIUM - SERUM 2.4 mg/dL (1.8-2.4); TROPONIN-I 0.047 ng/mL (0.000-0.060)
[2019-09-01] VITALS (18 sets, daily range): BP systolic 128–160; BP diastolic 81–105; BMI 25.1
--- NOTE | 2019-09-01 00:11 | NUR ---
PATIENT WEARS A HEART MONITOR AND WAS TOLD TO COME HERE BECAUSE OF THE RHTHYM HE WAS HAVING, SPOUSE AT BEDSIDE. PATIENT DENIES PAIN AND SOB.
--- NOTE | 2019-09-01 00:12 | NUR ---
ADMITTING PROVIDER TO BEDSIDE, INFORMED HIM OF THE PATIENT BLOOD PRESSURE.
[2019-09-01 06:05] LABS: BASOPHILS 0.6 % (0-2); EOSINOPHILS 1.8 % (0-7); HEMATOCRIT 43.8 % (42.0-54.0); HEMOGLOBIN 14.2 g/dL (13.5-17.5); IMMATURE GRANULOCYTES 0.2 % (0-5); LYMPHOCYTES 39.5 % (15-50); MCH 29.4 pg (26.0-34.0); MCHC 32.4 g/dL (31.0-37.0); MCV 90.7 fL (80.0-100.0); MONOCYTES 8.8 % (2-11); NEUTROPHILS 49.1 % (40-80); PLATELET COUNT 187 10x3/uL (130-400); RBC 4.83 10x6/uL (4.20-6.10); RDW 17.3 % (11.5-14.5); WBC 6.5 10x3/uL (4.8-10.8)
[2019-09-01 06:14] LABS: APTT 35.7 SECONDS (22.8-39.4)
[2019-09-01 06:23] LABS: INR 2.4 (0.85-1.17); PROTIME 25.8 SECONDS (11.6-15.0)
[2019-09-01 06:52] LABS: CALC OSMOLALITY 285 mosm/kg (275-300); CARBON DIOXIDE 22.7 mmol/L (21.0-32.0); CHLORIDE - SERUM 109 mmol/L (98-107); CKMB 2.3 U/L (0.0-3.6); CREATINE KINASE 84 UL (21-232); CREATININE - SERUM 1.2 mg/dL (0.6-1.3); GLUCOSE 98 mg/dL (74-106); MAGNESIUM - SERUM 2.2 mg/dL (1.8-2.4); PHOSPHOROUS 3.8 mg/dL (2.5-4.9); POTASSIUM - SERUM 3.7 mmol/L (3.5-5.1); PRO BNP 3737 pg/mL (0-450); SODIUM 142 mmol/L (136-145); TROPONIN-I 0.043 ng/mL (0.000-0.060); UREA NITROGEN 20 mg/dL (7-18); eGFR NON AFRICAN AMERICAN 62 mL/min (90-120)
--- NOTE | 2019-09-01 14:12 | NUR ---
NOTIFIED DR. DE ANDA ABOUT PT HAVING EPISODES OF 3 DEGREE BLOCK AND HEART RATE DROPPING IN THE 2OS. DR. DE ANDA STATED THAT DOCTORS ARE PLANNING ON TRANSFERING PT TO HIS ET DOCTOR TOMORROW. BUT HE WILL COME LOOK AT PT'S HEART MONITOR STRIPS.
--- NOTE | 2019-09-01 15:21 | NUR ---
PT TO SENIOR WEB ENGINEER.
--- NOTE | 2019-09-01 16:05 | NUR ---
RECEIVED FROM [place] APPRENTICE WITH TEMP PACEMAKER RIGHT GROIN. RIGHT GROIN DRESSING DRY AND INTACT TEMP PACEMAKER BATTERY CONNECTED AND TURNED ON RATE 50 MA 5 VV MODE. MONITOR REGULAR RHYTHM RATE 77 WITH OCC PVC. SOME P WAVES NOTED. PEDAL PULSES PALABLE. DENIES ANY PAIN. IV LEFT FOREARM WITHOUT REDNESS OR SWELLING INFUSING WITH NS AT [address] BED[address]IDE[address] DE ANDA UPDATED AND PATIENT.
--- NOTE | 2019-09-01 16:47 | NUR ---
DINNER TRAY SERVED. ASSISTTING PATIENT.
--- NOTE | 2019-09-01 17:00 | NUR ---
Gave report to Sarah BIRMINGHAM in CV[facility].
--- NOTE | 2019-09-01 17:26 | NUR ---
RIGHT GROIN DRESSING DRY AND INTACT. PEDAL PULSE PALABLE. MONITOR SR WITH BBB OCC PVC NOTED. TALKATIVE, IN GOOD HUMOR ATE WELL AT DINNER
--- NOTE | 2019-09-01 18:38 | NUR ---
RIGHT GROIN DRESSING DRY AND INTACT. MONITOR SSS WITH BBB, PVC'S. NO PACER RHYTHM NOTED. NURSE CALL LIGHT AND URINAL WITHIN HANDS REACH
--- NOTE | 2019-09-01 19:00 | NUR ---
SHIFT ASSESSMENT COMPLETED. PT CARE ASSUMED, MONITORS ON AND WORKING, VSS, PT AWAKE AND ALERT, TEMP PACER TO RIGHT FEM. PULSES PALP, NO SWELLING/BLEEDING NOTED. CALL LIGHT WITHIN REACH, WILL CONTINUE TO OBSERVE./
--- NOTE | 2019-09-01 21:00 | NUR ---
PT LYING IN BED RESTING, MONITORS ON AND WORKING VSS. PT AWAKE AND ALERT, CALL LIGHT WITHIN REACH, PAGED DR CHAVIS ABOUT SOMETHING TO HELP PT SLEEP. NEW ORDERS REC'D, WILL CONTINUE TO OBSERVE.
--- NOTE | 2019-09-01 23:00 | NUR ---
NO CHANGES, SEE FLOW SHEET FOR FURTHER DETAILS. WILL CONTINUE TO OBSERVE.
[2019-09-02] VITALS (36 sets, daily range): BP systolic 125–182; BP diastolic 79–121; Ht 177.8 cm; Wt 79.4 kg
--- NOTE | 2019-09-02 01:00 | NUR ---
URINAL EMPTIED, PT KEEPS RIGHT LEG STRAIGHT, DENIES ANY COMPLAINT OF PAIN OR DISCOMFORT AT THIS TIME. WILL CONTINUE TO OBSERVE.
--- NOTE | 2019-09-02 03:00 | NUR ---
PT LYING IN BED RESTING, MONITORS ON AND WORKING, VSS, CALL LIGHT WITHIN REACH, WILL CONTINUE TO OBSERVE.
--- NOTE | 2019-09-02 05:00 | NUR ---
NO CHANGES, PT AWAKE AND ALERT. MONITORS ON AND WORKING, VSS. CALL LIGHT WITHIN REACH, WILL CONTINUE TO OBSERVE.
[2019-09-02 05:55] LABS: BASOPHILS 0.5 % (0-2); EOSINOPHILS 1.9 % (0-7); HEMATOCRIT 45.2 % (42.0-54.0); HEMOGLOBIN 14.4 g/dL (13.5-17.5); IMMATURE GRANULOCYTES 0.1 % (0-5); LYMPHOCYTES 36.6 % (15-50); MCHC 31.9 g/dL (31.0-37.0); MCV 90.9 fL (80.0-100.0); MEAN PLATELET VOLUME 10.1 fL (7.4-10.4); MONOCYTES 8.5 % (2-11); NEUTROPHILS 52.4 % (40-80); PLATELET COUNT 197 10x3/uL (130-400); RBC 4.97 10x6/uL (4.20-6.10); RDW 17.5 % (11.5-14.5); WBC 7.5 10x3/uL (4.8-10.8)
[2019-09-02 06:11] LABS: ANION GAP 14.9 mmol/L (8-16); CALCIUM 8.8 mg/dL (8.5-10.1); CARBON DIOXIDE 22.9 mmol/L (21.0-32.0); CREATININE - SERUM 1.3 mg/dL (0.6-1.3); MAGNESIUM - SERUM 2.2 mg/dL (1.8-2.4); PHOSPHOROUS 3.1 mg/dL (2.5-4.9); POTASSIUM - SERUM 3.8 mmol/L (3.5-5.1)
--- NOTE | 2019-09-02 07:50 | NUR ---
SHIFT ASSESSMENT PERFORMED. ASKING FOR WATER. TEACHING ON NPO FOR POSSIBLE PERMANENT PACEMAKER IMPLANTATION TODAY. ORAL SWABS GIVEN FOR ORAL CARE.
--- NOTE | 2019-09-02 07:52 | NUR ---
MONITOR SHOWS EPISODE OF VENTRICULAR STANDSTILL WITH PACER SPIKES WITHOUT CAPTURE. WHEN ASSESSED, PATIENT REPORTS HAVING A "HOT FLASH" AND FEELING DIZZY. CALLED CARDIOLOGY DAIRY SCIENCE TEACHER PAGER. ANSERED BY WIRE FRAME LAMPSHADE MAKER STAFF. WILL REPORT TO DR. NEVILLE. ALSO CALLED DR. DAVIS'S OFFICE. PATIENT WANTS TO TALK TO DR. DAVIS BEFORE PACEMAKER IMPLANTATION.
--- NOTE | 2019-09-02 09:15 | NUR ---
DR. MOONEY HERE. TEMPORARY PACING WIRE REMOVED FROM RIGHT FEMORAL VEIN. PRESSURE HELD X 2 MINUTES. BEDREST X 2 HOURS. VERBAL STATEMENT TO TRANSFER PATIENT TO [facility].
--- NOTE | 2019-09-02 09:15 | NUR ---
DR. MOONEY AT BEDSIDE. INSTRUCTIONS TO PATIENT ON PACEMAKER IMPLANTATION TOMORROW. STATES HE WILL RETURN TO REMOVE TEMPORARY PACING CATHETER THAT IS MALFUNCTIONING. PATIENT MAY EAT.
--- NOTE | 2019-09-02 10:02 | NUR ---
MONITOR SHOWS LENGTHY EPISODE OF VENTRICULAR STANDSTILL WITH OCCASIONAL VENTRICULAR ESCAPE BEAT. DR. JULIEN. EXTERNAL PACING PADS APPLIED AND TRANSCUTANEOUS PACING INITIATED AT RATE OF 60, OUTPUT OF 30MA. CAPTURE ACHIEVED.
--- NOTE | 2019-09-02 10:10 | NUR ---
DR. MOONEY HERE. ATROPINE 2MG IVP GIVEN ORDERED. RHYTHM IS VENTRICULAR STANDSTILL WITH VENTRICULAR ESCAPE BEATS VS COMPLETE HEAR BLOCK WITH VENTRICULAR OF 20 TO 30 FOLLOWED BY PERIODS OF SINUS RHYTHM. TRANSCUTANEOUS PACEMAKER SET TO RATE OF 40 WITH MA OF [address] MOONEY.
--- NOTE | 2019-09-02 10:30 | NUR ---
AMMUNITION ASSEMBLY LABORER CALLS. PERMANENT PACEMAKER IMPLANTATION MOVED TO 1230 TODAY. CHG BATH GIVEN AND LINENS CHANGED. SCDS APPLIED WITH TEACHING AND TEACHBACK. INCENTIVE SPIROMETRY TAUGHT AND RETURN DEMONSTRATION BY PATIENT. REMAINS AT BEDSIDE.
--- NOTE | 2019-09-02 10:45 | NUR ---
DR. NEVILLE AT BEDSIDE. INSTRUCTIONS TO ALLOW PATIENT TO EAT BREAKFAST. PACEMAKER IMPLANTATION SCHEDULED FOR TOMORROW. BREAKFAST GIVEN. AT BEDSIDE.
--- NOTE | 2019-09-02 12:01 | NUR ---
CONSENT FOR PERMANENT PACEMAKER SIGNED BY PER REQUEST OF PATIENT.
--- NOTE | 2019-09-02 12:10 | NUR ---
TO SPECIAL WARFARE COMBATANT CREWMAN VIA BED. STAFF INFORMED OF ELEVATED BP. REMAINS IN ROOM.
--- NOTE | 2019-09-02 14:00 | NUR ---
BACK TO ROOM VIA BED. MEPILEX DRESSING INTACT TO LEFT SUBCLAVIAN PERMANENT PACEMAKER SITE. LEFT ARM SECURED IN SLING. AROUSES TO VERBAL AND TACTILE STIMULI. VERY GROGGY. DENIES PAIN. MANAGER QUALITY COMPLIANCE SHOWS PACEMAKER RHYTHM AT 96. O2 AT 2L/M VIA N/C. SPO2 100%. NS AT 20ML/HR TO LEFT WRIST. C/O NEEDING TO URINATE. URINAL PROVIDED. SIDE RAILS UP FOR SAFETY. PRESENT. INSTRUCTED ON KEEPING LEFT ARM IMMOBILE.
[2019-09-02 14:09] LABS: APTT 30.2 SECONDS (22.8-39.4); INR 1.21 (0.85-1.17); PROTIME 15.2 SECONDS (11.6-15.0)
--- NOTE | 2019-09-02 15:00 | NUR ---
DISCHARGE INSTRUCTIONS GIVEN TO PATIENT AND FAMILY MEMBER. IV CATHETERS DISCONTINUED.
--- NOTE | 2019-09-02 15:00 | NUR ---
REASSESSMENT DONE. PATIENT MORE AWAKE BUT CONFUSED. REORIENTED AND INSTRUCTIONS REPEATED TO KEEP LEFT ARM IMMOBILE. DENIES PAIN.
--- NOTE | 2019-09-02 15:30 | NUR ---
PATIENT DISCHARGED HOME VIA WHEELCHAIR WITH FAMILY MEMBER.
--- NOTE | 2019-09-02 16:15 | NUR ---
MONITOR SHOWS 6 SECOND EPISODE OF FAILURE TO PACE/CAPTURE. DR. NEVILLE PAGED AND NOTIFIED OF EVENTS AND ELEVATED BP. CANDY MAKER TO BE NOTIFIED TO INTEROGATE PACEMAKER.
--- NOTE | 2019-09-02 16:30 | NUR ---
PACEMAKER INTERROGATED. LEAD DISPLACED. DR. MOONEY NOTIFIED AND ORDERS TO RETURN TO FIELD SERVICER FOR REVISION OF PACER LEAD WIRE.
--- NOTE | 2019-09-02 17:49 | NUR ---
TO BRAKE OPERATOR SHEET METAL VIA BED ACCOMPANIED BY BRAKE OPERATOR SHEET METAL STAFF. REMAINS IN ROOM.
--- NOTE | 2019-09-02 18:50 | NUR ---
RETURNED TO ROOM FROM BINDERY ASSISTANT. MONITORS RESUMED. DENIES PAIN. AROUSES TO VERBAL STIMULI AND IS ORIENTED TO PLACE. MATHEMATICS TECHNICIAN SHOWS COMPLETE PACEMAKER RHYTHM. NS AT 20 ML/HR VIA LEFT WRIST. C/O URINARY PRESSURE. UNABLE TO URINATE INTO URINAL. DR. MOONEY NOTIFIED. ORDER RECEIVED FOR QURESHI CATHETER PLACEMENT.
--- NOTE | 2019-09-02 19:00 | NUR ---
SHIFT ASSESSMENT COMPLETED. PT CARE ASSUMED. MONITORS ON AND WORKING, VSS. PT RECENTLY BACK FROM GETTING PPM PLACED, QURESHI CATH PLACED BY DAY SHIFT RN AT THIS TIME, PT EASILY AWAKENS WITH VERBAL STIMULI. LEFT ARM SLING ON, LEFT CHEST DRESSING CDI. CALL LIGHT WITHIN REACH. WILL CONTINUE TO OBSERVE.
--- NOTE | 2019-09-02 19:10 | NUR ---
REPORT TO ON-COMING NURSE.
[2019-09-02 19:15] LABS: HEMATOCRIT 46.6 % (42.0-54.0); HEMOGLOBIN 14.8 g/dL (13.5-17.5); MCH 29.4 pg (26.0-34.0); MCHC 31.8 g/dL (31.0-37.0); MCV 92.5 fL (80.0-100.0); MEAN PLATELET VOLUME 10.1 fL (7.4-10.4); RBC 5.04 10x6/uL (4.20-6.10); RDW 17.5 % (11.5-14.5); WBC 8.9 10x3/uL (4.8-10.8)
--- NOTE | 2019-09-02 19:15 | NUR ---
1300 ML OF URINE RETURNED UPON INSERTION OF QURESHI CATH.
[2019-09-02 19:47] LABS: APTT 29.1 SECONDS (22.8-39.4); INR 1.34 (0.85-1.17); PROTIME 16.5 SECONDS (11.6-15.0)
[2019-09-02 20:34] LABS: ANION GAP 13.7 mmol/L (8-16); CALCIUM 8.6 mg/dL (8.5-10.1); CARBON DIOXIDE 23.5 mmol/L (21.0-32.0); CREATININE - SERUM 1.1 mg/dL (0.6-1.3); POTASSIUM - SERUM 4.2 mmol/L (3.5-5.1)
--- NOTE | 2019-09-02 21:00 | NUR ---
PT TURNED AND REPOSITIONED FOR COMFORT. MONITORS ON AND WORKING, SIPS OF WATER GIVEN AT THIS TIME WELL, PT TOLERATED WELL. CALL LIGHT WITHIN REACH, WILL CONTINUE TO OBSERVE.
--- NOTE | 2019-09-02 23:00 | NUR ---
NO CHANGES, SEE FLOW SHEET FOR FURTHER DETAILS. WILL CONTINUE TO OBSERVE.
[2019-09-03] VITALS (14 sets, daily range): BP systolic 123–150; BP diastolic 70–104
[2019-09-03 05:22] LABS: BASOPHILS 0.3 % (0-2); EOSINOPHILS 2.4 % (0-7); HEMATOCRIT 44.5 % (42.0-54.0); HEMOGLOBIN 14.1 g/dL (13.5-17.5); IMMATURE GRANULOCYTES 0.3 % (0-5); LYMPHOCYTES 32.3 % (15-50); MCH 29.1 pg (26.0-34.0); MCHC 31.7 g/dL (31.0-37.0); MCV 91.8 fL (80.0-100.0); MEAN PLATELET VOLUME 9.9 fL (7.4-10.4); MONOCYTES 8.3 % (2-11); NEUTROPHILS 56.4 % (40-80); PLATELET COUNT 189 10x3/uL (130-400); RBC 4.85 10x6/uL (4.20-6.10); RDW 17.5 % (11.5-14.5); WBC 7.2 10x3/uL (4.8-10.8)
[2019-09-03 05:28] LABS: ANION GAP 17.6 mmol/L (8-16); CALCIUM 8.6 mg/dL (8.5-10.1); CARBON DIOXIDE 24.2 mmol/L (21.0-32.0); CREATININE - SERUM 1.3 mg/dL (0.6-1.3); MAGNESIUM - SERUM 2.2 mg/dL (1.8-2.4); PHOSPHOROUS 3.2 mg/dL (2.5-4.9); POTASSIUM - SERUM 3.8 mmol/L (3.5-5.1)
--- NOTE | 2019-09-03 08:20 | NUR ---
CALL RECEIVED FROM HAMMAD LIAO'S SISTER. PERMISSION ACQUIRED FROM PT TO GIVE INFORMATION. BRIEF UPDATE GIVEN. PT SITTING UP ON SIDE OF BED EATING BREAKFAST. DENIES OTHER NEEDS AT THIS TIME. WILL CONTINUE TO MONITOR.
--- NOTE | 2019-09-03 08:41 | OP ---
PATIENT NAME: JERONIMO DENNY MEDICAL RECORD: [id number] :40 LOCATION:[facility] ADMISSION DATE:08/31/19 SURGEON: RODNEY MOONEY MD DATE OF OPERATION: 09/02/2019 PROCEDURE: Lead reposition. DESCRIPTION OF PROCEDURE: After the previous pocket was opened via Dr. Hernandez, the fluoroscopy did show migration of the ventricular lead. The atrial leads were checked and excellent P waves. Next, under fluoroscopic guidance, I replaced RV lead distally in the RV apex with excellent capture and excellent P waves again. Leads were then attached to appropriate poles of the generator and the existing generator and the pocket was closed via Dr. Hernandez. IMPRESSION: Successful lead portion of permanent pacer placement on Jeronimo Denny. COMPLICATIONS: None. NTS:[id number] Voice Confirmation ID: [id number] DOCUMENT ID: [id number] RODNEY MOONEY MD at 0841 CC: [id number] DICTATION DATE: 09/02/19 183 MANAGER OF COMPLIANCE: 09/03/19 0048 ADM IN [facility] [address] [id number]
--- NOTE | 2019-09-03 08:41 | OP ---
PATIENT NAME: KADE DENYN MEDICAL RECORD: [id number] :40 LOCATION:[facility] ADMISSION DATE:08/31/19 SURGEON: RODNEY MOONEY MD DATE OF OPERATION: 09/02/2019 PROCEDURE: Lead portion of permanent pacemaker placement. SURGEON: Carlos Leos MD DESCRIPTION OF PROCEDURE: After left subclavian was cannulated via modified Seldinger technique via Dr. Leos first under fluoroscopic guidance, I placed the RV lead into the RV apex. After adequate R waves and thresholds were obtained, we then passed the right atrial lead into right atrial appendage without difficulty. After adequate P waves and thresholds were obtained, leads were attached to appropriate pole of the generator and the pocket was closed via Dr. Leos. IMPRESSION: Successful lead portion of permanent pacemaker placement of Kade Denny. ESTIMATED BLOOD LOSS: Minimal. COMPLICATIONS: None. DISPOSITION: To the floor, stable. TRANSINT:[id number] Voice Confirmation ID: [id number] DOCUMENT ID: [id number] RODNEY MOONEY MD at 0841 CC: [id number] DICTATION DATE: 09/02/19 1334 LANDSCAPE PHOTOGRAPHER: 09/02/19 0878 ADM IN [id number] [place] [address]
--- NOTE | 2019-09-03 09:32 | NUR ---
Ambulated to bathroom. No BM noted. AM meds given. spouse at bedside. No further needs at this time. will continue to monitor.
--- NOTE | 2019-09-03 10:30 | NUR ---
QURESHI CATHETER DC'D AT THIS TIME. EMPTIED ABOUT 300ML OF YELLOW URINE. NO FURTHER NEES AT THIS TIME.
--- NOTE | 2019-09-03 13:34 | NUR ---
PIV DCD TIP INTACT, DC TEACHING DONE
--- NOTE | 2019-09-03 13:45 | NUR ---
PT ASSISTED TO CAR VIA WHEELCHAIR WITH
--- NOTE | 2019-09-03 17:20 | MORECARE ---
CASE MANAGEMENT DISCHARGE SUMMARY PATIENT: JERONIMO CLARKE UNIT: [id number] ADM DATE: 08/31/19 AGE: 78 : 40 SEX: M ROOM/BED: D.[facility] AUTHOR: JENI,DOC PHYSICIAN: REFERRING PHYSICIAN: SARAH DANIELLE MD DATE OF SERVICE: 09/03/19 Discharge Plan Patient Name: JERONIMO CLARKE Facility: [facility]:[place] : 1940 Planned Disposition: Anticipated Discharge Date: Discharge Date: 09/03/2019 Expected LOS: Initial Reviewer: [email or web address] Initial Review Date: 09/01/2019 Generated: 09/03/19 6:19 pm Comments DCP- Discharge Planning Updated by [email or web address]: Regi Kirk on 09/03/19 4:[address] Patient Name: JERONIMO CLARKE Admission Status: ER Accout number: [id number] Admission Date: 08-31-2019 : 1940 Admission Diagnosis:ATRIOVENTRICULAR BLOCK, COMPLETE Attending: JULIETTE DANIELLE Current LOS: 3 Anticipated DC Date: Planned Disposition: Primary Insurance: [employer] CHO[employer] PPO [facility] Discharge Planning Comments: CM met with patient to complete initial dc planning assessment. CM educated patient on the CM role and verbal consent given by patient to complete assessment. Patient lives at home with family. Patient is independent. At discharge patient plans to return home and feels this is a safe discharge. CM discussed availability of home health, rehab services, and medical equipment. Patient will have family to transport home. Patient denied known discharge needs at this time. CM will continue to follow and will assist as needed with dc plans/needs. D/C IMM SIGNED 09/03/19 @ 1236 Ski Lift Attendant: Regi Kirk DCPIA - Discharge Planning Initial Assessment Updated by [email or web address]: Regi Kirk on 09/03/19 5:17 pm * Is the patient Alert and Oriented? Yes * How many steps to enter\exit or inside your home? * PCP RAJIVY * Pharmacy [facility] * Preadmission Environment Home with Family * ADLs Independent * Equipment None * List name and contact numbers for known caregivers / representatives who currently or will assist patient after discharge: URIEL CLARKE - [facility] - [phone] * Verbal permission to speak to the caregivers and representatives has been obtained from the patient. Yes * Community resources currently utilized None * Additional services required to return to the preadmission environment? No * Can the patient safely return to the preadmission environment? Yes * Has this patient been hospitalized within the prior 30 days at any hospital? No Coverage Notice Reviewer: [email or web address] Shelbie Kirk Notice Issued Date-Time: 09/03/2019 12:36 Notice Type: IM Discharge Notice Notice Delivered To: Patient Relationship to Patient: Self Barrel Marker Name: Delivery Method: HAND - Hand Delivered Alexa Days: Prior Verbal Notification: Recipient Understood Notice: Yes Recipient Signature: Yes Med Rec Note Co-signed by Attending: Coverage Notice Comment: Patient Name: JERONIMO CLARKE Page [phone] at 1720 All edits/amendments must be made on the electronic document DICTATION DATE: 09/03/191718 WATER/WASTEWATER ENGINEER: ALYSSA 09/03/191718 RPT#: [id number] DC DATE:09/03/19 STATUS: DIS IN [address] [place] [address] END OF REPORT
== END 2019-09-03 13:47 | disposition home or self-care (01) | DRG 243 ==
LOC: D.ER 22:34 → D.CVICU 23:45 → D.M2 23:45 → D.CVICU 09-01 16:20
PROVIDERS: Family Medicine; Internal Medicine Interventional Cardiology; ADMIT Emergency Medicine; ATTEND Emergency Medicine
PROC: 5A1223Z Performance of Cardiac Pacing, Continuous (ICD-10-PCS; 2019-09-01)
PROC: 02HK3JZ Insertion of Pacemaker Lead into Right Ventricle, Percutaneous Approach (ICD-10-PCS; 2019-09-02)
PROC: 02H63JZ Insertion of Pacemaker Lead into Right Atrium, Percutaneous Approach (ICD-10-PCS; 2019-09-02)
PROC: 0JH606Z Insertion of Pacemaker, Dual Chamber into Chest Subcutaneous Tissue and Fascia, Open Approach (ICD-10-PCS; principal; 2019-09-02 12:10)
DX: I49.5 Sick sinus syndrome (principal); I44.2 Atrioventricular block, complete; N17.9 Acute kidney failure, unspecified; I50.22 Chronic systolic (congestive) heart failure; E87.6 Hypokalemia; I11.0 Hypertensive heart disease with heart failure; M19.90 Unspecified osteoarthritis, unspecified site; E03.9 Hypothyroidism, unspecified; E78.5 Hyperlipidemia, unspecified; Z79.01 Long term (current) use of anticoagulants; I25.10 Atherosclerotic heart disease of native coronary artery without angina pectoris

== ENCOUNTER → 2019-10-21 14:55 | Outpatient (CLI) | payer MEDICARE ==
[2019-09-02 10:28] VITALS: BMI 25.1
== END | disposition home or self-care (01) ==
LOC: D.RAD 14:55
PROVIDERS: ATTEND Internal Medicine Pulmonary Disease
DX: R06.00 Dyspnea, unspecified (principal)